=== PATIENT | male | born 1980 | race Two or more races ===

== ENCOUNTER 2016-12-02 16:06 | Inpatient (IN) | payer MEDICAID, SELFPAY ==
[~2016-12-02] VITALS: Ht 175.3 cm; Wt 104.2 kg
[2016-12-02] MEDS ORDERED: ETOMIDATE INJ 20MG/10ML VIAL IV STA (16:24)
[2016-12-02] MEDS ORDERED: NALOXONE INJ 2 MG/2 ML SYRINGE (J2310) IV STA (16:24)
[2016-12-02] MEDS ORDERED: SUCCINYLCHOLINE INJ 200 MG/10 ML VIAL (J0330) IV STA (16:24)
[2016-12-02] MEDS ORDERED: PROPOFOL 1,000 MG/100 ML VIAL As Ordered ONE (16:29)
[2016-12-02] MEDS ORDERED: PROPOFOL 200 MG/20 ML VIAL IV ONE ×3 (16:30→17:15)
[2016-12-02] MEDS ORDERED: PROPOFOL 1,000 MG in APPROPRIATE DILUENT 1 EA IV SCH (16:30)
[2016-12-02 16:38] LABS: MEAN CORPUSCULAR HEMOGLOBIN 29.4 pg (27.0-33.0); MEAN CORPUSCULAR HGB CONC 31.1 g/dl (32.0-36.5); MEAN CORPUSCULAR VOLUME 94.8 fl (80.0-96.0); PLATELET COUNT, AUTOMATED 362 10^3/uL (150-450); RED CELL DISTRIBUTION WIDTH 12.4 % (11.5-14.5)
--- NOTE | 2016-12-02 16:42 | REP ---
Chest one-view HISTORY: Post intubation Comparison: None The lungs are clear. The heart is normal in size. The pulmonary vasculature is normal in appearance. An ET tube is present in the trachea. Impression: No acute disease. Signed by Sky Ghosh MD 12/02/2016 04:33 P
[2016-12-02 16:44] LABS: WHITE BLOOD COUNT 18.4 10^3/uL (4.0-10.0)
[2016-12-02 16:45] LABS: ADD MANUAL DIFFER YES; BLASTS MDIFF; DIFF SLIDE NUMBER 295
[2016-12-02 17:00] LABS: ALBUMIN 4.5 GM/DL (3.2-5.2); ALBUMIN/GLOBULIN RATIO 1.18 (1.00-1.93); ALKALINE PHOSPHATASE 62 U/L (45-117); ALT/SGPT 37 U/L (12-78); ANION GAP 21 MEQ/L (8-16); AST/SGOT 23 U/L (15-37); BILIRUBIN,DIRECT 0.1 MG/DL (0.0-0.2); BILIRUBIN,TOTAL 0.4 MG/DL (0.2-1.0); BLOOD UREA NITROGEN 12 MG/DL (7-18); CALCIUM LEVEL 9.7 MG/DL (8.5-10.1); CARBON DIOXIDE LEVEL 15 MEQ/L (21-32); CHLORIDE LEVEL 99 MEQ/L (98-107); CREATININE FOR GFR 1.46 MG/DL (0.70-1.30); GLOMERULAR FILTRATION RATE 58.5 (>60); GLUCOSE, FASTING 249 MG/DL (70-105); SODIUM LEVEL 135 MEQ/L (136-145); TOTAL PROTEIN 8.3 GM/DL (6.4-8.2)
--- NOTE | 2016-12-02 17:07 | REP ---
CT Head without contrast HISTORY: Altered mental status COMPARISON: None There is no intraparenchymal hemorrhage, acute infarct, mass or midline shift. The ventricular system is normal in appearance. There is no extra cerebral collection. There is no fracture. The visualized sinuses are clear. IMPRESSION: There is no intracranial lesion. Signed by Sky Ghosh MD 12/02/2016 04:59 P
[2016-12-02 17:11] LABS: ABG BASE EXCESS -9.5 (-2.0-2.0); ABG HCO3 16.4 MEQ/L (22.0-26.0); ABG PARTIAL PRESSURE CO2 36.6 mmHg (35.0-45.0); ABG PARTIAL PRESSURE O2 135.4 mmHg (75.0-100.0); ABG STANDARD HCO3 17.1 MEQ/L (22.0-26.0); ABG TOTAL CO2 17.6 MEQ/L (22.0-29.0)
--- NOTE | 2016-12-02 17:18 | ECGEPIP ---
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 RBBB ARM LEADS REVERSED ABNORMAL RHYTHM ECG Electronically Signed On 12-02-2016 17:10:20 EDT by Clark Sims
[2016-12-02 17:19] LABS: OSMOLALITY SERUM 310 MOSM/KG (275-295)
[2016-12-02] MEDS ORDERED: NS 1,000 ML IV SCH ×2 (17:36→19:00)
[2016-12-02 17:37] LABS: METHADONE URINE NEGATIVE (NEGATIVE)
[2016-12-02] MEDS ORDERED: PHENYTOIN INJection 1,000 MG in NS 100 ML IV ONE (17:45)
[2016-12-02 19:00] LABS: INR 1.12
[2016-12-02] MEDS ORDERED: MIDAZOLAM INJ 2 MG/2 ML VIAL (J2250) IV PRN (19:00)
[2016-12-02] MEDS ORDERED: LACTULOSE 20 GM/30 ML SYRUP UD NG ONE (19:00)
[2016-12-02] MEDS ORDERED: MORPHINE 2 MG/ML 1ML SYRINGE IV PRN (19:00)
[2016-12-02] MEDS ORDERED: FOMEPIZOLE IV ONE (19:00)
[2016-12-02] MEDS ORDERED: NS IV ONE (19:00)
[2016-12-02] MEDS ORDERED: NS 1,000 ML IV ONE (19:00)
[2016-12-02 19:48] VITALS: BP 143/78
[2016-12-02 19:53] VITALS: BP 148/82
--- NOTE | 2016-12-02 20:06 | HPE ---
HISTORY AND PHYSICAL/CRITICAL CARE ADMIT NOTE: DATE OF ADMISSION: 12/02/2016 Start time: 1810 hours Stop time: 9 hours I called to attend Sergei Hernández here in the emergency department. The patient has been examined and records review. Spoke tonight with the ER as well as the patient's mother, sister and significant other at the bedside. In essence this is a previously healthy 36-year-old gentleman whose only significant history is about a year ago he suffered a pelvic fracture. He has been in his usual state of health. He takes no medicines. Was at work today feeling fine then had a seizure. EMS was summoned. He had another seizure en route to the hospital. On arrival here, was unable to protect his airway and was intubated. CT scan of the head is unremarkable. Chest x-ray shows no infiltrates. ET tube is in good position. Laboratories show a sodium of 135, potassium 4.0, chloride 99, CO2 of 15, BUN 12 , creatinine 1.46, anion gap of 21. Glucose 249. Osmolality measured at 310, calculated osmolar gap of 21.9. Lactic acid 16.3. Liver function is unremarkable but his ammonia is 292. Coags are pending. White blood cell count 18.4, hemoglobin 16.4, platelet count 362,000, 47% segmented neutrophils, 48% lymphocystes, no bands. Blood gas done in the ER on ventilator settings, unknown. PH 7.270. PCO2 of 36.6 and a pO2 of 135.4 with saturation 98.5%. On exam, heart rate 90 to 110 with a sinus mechanism. With increased sedation down into the 80s with a sinus mechanism. Blood pressure 100 to 120 systolic. Respiratory at 18 to 22 without accessory muscle use. He is currently afebrile. HEENT: Shows the oroendotracheal tube, nasogastric tube. Pupils are small. Sclera clear. Trachea is in the midline. Chest with symmetric expansion. Lung mitchell are clear. No wheeze or rhonchus. Cardiac exam is regular with no gallop. Peripheral pulses palpable, no edema. Abdomen is soft, with active bowel sounds. No obvious organomegaly or masses. Extremities: No cyanosis or clubbing. Neurologically is sedated but does move extremities with stimulation. ALLERGIES: Listed as none. MEDICATIONS: None. PAST MEDICAL HISTORY: Significant only for his pelvic fracture. Remote history of head injury without loss of consciousness. His previous record has counseling for substance abuse. SOCIAL HISTORY: He does smoke. No regular alcohol. FAMILY HISTORY: Noncontributory to his current status. REVIEW OF SYSTEMS: Otherwise unobtainable from the patient. Family reports all other review of systems negative. IMPRESSION: The most pressing problem requiring my immediate presence at the bedside, metabolic acidosis with increased osmolar and anion gap. Strongly suspect ethylene glycol intoxication. Respiratory failure secondary to the above. Seizures. Likely secondary to toxin. At this point the working diagnosis is ethylene glycol intoxication, especially in view of the constellation of lab findings noted above. The patient does work in an [employer]. He has significant exposure to such agents. His girlfriend tells me that he has been dealing with an antifreeze leak in his car as of late. We will begin fomepizole. I have spoken with nephrology who will evaluate him regarding potential dialysis. He was given lactulose for his elevated ammonia as well. IV hydration has been started. We will repeat his lactate and chemistries here shortly, unless he on dialysis, then they will repeat it after. Also DVT prophylaxis are in place. Ventilator adjustments have been made by myself and repeat blood gases pending. He is on propofol for sedation, which is usual regarding seizures. He has had no further seizure activity. He was loaded with dilantin by the ER. If the seizures continues then I would involve neurology. I had a long discussion with the family at the bedside regarding my suspicions. I will proceed as outlined above. Prognosis remains quite guarded at this point. He is critically ill and we will facilitate transfer to the intensive care unit. I left the bedside at 1928 hours. 78 minutes critical care time delivered at the bedside, not including procedures. EULALIO
[2016-12-02] MEDS: PROPOFOL 1,000 MG in APPROPRIATE DILUENT 1 EA IV SCH ×2 (20:24→22:15)
[2016-12-02 20:25] LABS: YEAST LIKE CELL URINE AUTO SMALL
[2016-12-02 21:00] VITALS: BP 127/67
[2016-12-02] MEDS ORDERED: CHLORHEXIDINE ORAL RINSE 0.12%/15ML 120ML BOTTLE MT SCH (21:00)
[2016-12-02 21:43] LABS: ANION GAP 8 MEQ/L (8-16); BLOOD UREA NITROGEN 13 MG/DL (7-18); CALCIUM LEVEL 8.7 MG/DL (8.5-10.1); CARBON DIOXIDE LEVEL 25 MEQ/L (21-32); CHLORIDE LEVEL 104 MEQ/L (98-107); CREATININE FOR GFR 1.21 MG/DL (0.70-1.30); GLOMERULAR FILTRATION RATE > 60.0 (>60); GLUCOSE, FASTING 89 MG/DL (70-105); POTASSIUM SERUM 3.6 MEQ/L (3.5-5.1); SODIUM LEVEL 137 MEQ/L (136-145)
[2016-12-02] MEDS: IPRATROPIUM 0.5MG/ALBUTEROL 2.5MG INH SOL UD 3ML (DUONEB)(J7620) NEB SCH ×2 (21:43→23:55)
[2016-12-02 21:54] LABS: ABG BASE EXCESS -1.8 (-2.0-2.0); ABG HCO3 23.2 MEQ/L (22.0-26.0); ABG PARTIAL PRESSURE CO2 40.4 mmHg (35.0-45.0); ABG PARTIAL PRESSURE O2 152.6 mmHg (75.0-100.0); ABG TOTAL CO2 24.4 MEQ/L (22.0-29.0); ABG pH (ARTERIAL) 7.377 UNITS (7.350-7.450)
[2016-12-02 22:00] VITALS: BP 124/74
[2016-12-02] MEDS: KCL 20MEQ in NS 1000ML 1,000 ML IV SCH (22:10)
[2016-12-02] MEDS: HEPARIN SOD (PORCINE) 5000 UNITS/ML VIAL SC SCH (22:11)
[2016-12-02 23:00] VITALS: BP 107/68
[2016-12-03] VITALS (18 sets, daily range): BP systolic 101–146; BP diastolic 59–86; O2SAT 98–100
[2016-12-03] MEDS: PROPOFOL 1,000 MG in APPROPRIATE DILUENT 1 EA IV SCH ×6 (00:01→09:01)
[2016-12-03] MEDS: IPRATROPIUM 0.5MG/ALBUTEROL 2.5MG INH SOL UD 3ML (DUONEB)(J7620) NEB SCH ×6 (03:28→23:54)
[2016-12-03] MEDS: KCL 20MEQ in NS 1000ML 1,000 ML IV SCH ×2 (04:18→11:14)
[2016-12-03 04:53] LABS: BASO % 0.2 % (0.0-1.0); EOS % 0.2 % (0.0-3.0); IMMATURE GRANULOCYTE % 0.2 % (0-0); LYMPH # 1.8 10^3/uL (1.5-4.5); LYMPH % 14.4 % (24.0-44.0); MEAN CORPUSCULAR HEMOGLOBIN 29.9 pg (27.0-33.0); MEAN CORPUSCULAR HGB CONC 34.2 g/dl (32.0-36.5); MONO # 1.5 10^3/uL (0.0-0.8); MONO % 12.2 % (0.0-5.0); NEUTROPHILS # 8.9 10^3/uL (1.8-7.7); NEUTROPHILS % 72.8 % (36.0-66.0); RED CELL DISTRIBUTION WIDTH 13.2 % (11.5-14.5); WHITE BLOOD COUNT 12.2 10^3/uL (4.0-10.0)
[2016-12-03 05:14] LABS: MEAN CORPUSCULAR VOLUME 87.5 fl (80.0-96.0); PLATELET COUNT, AUTOMATED 254 10^3/uL (150-450)
[2016-12-03 05:28] LABS: ALBUMIN 3.6 GM/DL (3.2-5.2); ALBUMIN/GLOBULIN RATIO 1.29 (1.00-1.93); BILIRUBIN,TOTAL 0.5 MG/DL (0.2-1.0); CALCIUM LEVEL 8.3 MG/DL (8.5-10.1); CREATININE FOR GFR 1.62 MG/DL (0.70-1.30); GLOMERULAR FILTRATION RATE 51.9 (>60); PHOSPHORUS LEVEL 5.9 MG/DL (2.5-4.9); POTASSIUM SERUM 4.3 MEQ/L (3.5-5.1); TOTAL PROTEIN 6.4 GM/DL (6.4-8.2)
[2016-12-03 05:37] LABS: ABG HCO3 22.4 MEQ/L (22.0-26.0); ABG PARTIAL PRESSURE CO2 41.4 mmHg (35.0-45.0); ABG TOTAL CO2 23.7 MEQ/L (22.0-29.0); ABG pH (ARTERIAL) 7.351 UNITS (7.350-7.450)
[2016-12-03] MEDS: HEPARIN SOD (PORCINE) 5000 UNITS/ML VIAL SC SCH ×3 (06:37→23:15)
[2016-12-03] MEDS: NS IV SCH ×2 (06:40→18:48)
[2016-12-03] MEDS: FOMEPIZOLE IV SCH ×2 (06:40→18:48)
--- NOTE | 2016-12-03 07:40 | REP ---
Portable chest, 06:45 a.m., single AP view, the patient semi upright: Comparison is 12/02/2016. The endotracheal tube remains in satisfactory position at the level of the aortic arch. There has been interval placement of a nasogastric tube terminating satisfactorily in the upper abdomen on the left. Lung mitchell are clear. Cardiac size is normal. Half half half half half Signed by Mahesh Solano MD 12/03/2016 07:30 A
[2016-12-03] MEDS: PANTOPRAZOLE 40MG INJ (PROTONIX) (C9113) IV SCH (08:15)
[2016-12-03 08:35] LABS: ALBUMIN 3.7 GM/DL (3.2-5.2); CALCIUM LEVEL 8.3 MG/DL (8.5-10.1); CREATININE FOR GFR 1.69 MG/DL (0.70-1.30); GLOMERULAR FILTRATION RATE 49.4 (>60); PHOSPHORUS LEVEL 5.8 MG/DL (2.5-4.9); POTASSIUM SERUM 4.4 MEQ/L (3.5-5.1)
--- NOTE | 2016-12-03 11:57 | CCN ---
DATE: 12/02/2016 Start time: 0820 hours. Stop time: 0942 hours. I again attended Sergei Hernández here in the intensive care unit. He is intubated, sedated and mechanically ventilated. I have spoken at length with the family at the bedside. 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 The deputy is at the bedside. I have written permission from the mother to discuss issues with him. At this point, we have spoken only in generalities. T-max overnight 98.9, heart rate 60s to 80s with a sinus mechanism, blood pressure 100 to 140 systolic. Intake and output 2051 mL in with 1725 mL out. White blood cell count 12.2, hemoglobin 15.0, platelet count 254,000, 72.8% segs , no bands. Sodium 144, potassium (K) of 4.4, chloride of 111, CO2 24, BUN 15, creatinine 1.69, glucose 107. Osmolality measured down to 301. His osmolytic gap this morning is within normal limits at less than 2. CPK earlier this morning 1168. Ammonia down to 27. Liver functions remain acceptable, highest AST at 38. Blood gas this morning done on PRVC mode, rate of 12, tidal volume of 500, PEEP of 5, FiO2 of 30% has a pH of 7.351, pCO2 of 41.1 and a pO2 of 174. Ethylene glycol is still pending. Chest x-ray shows OG and endotracheal tube to be in good position. No infiltrates or pneumothorax. On exam, he is sedate but moves all extremities appropriately. Pupils remain small, sclera clear. Trachea is in the midline. Chest shows symmetric expansion. Lung mitchell are clear to percussion, remain symmetric and no significant focal adventitious breath sounds are identified. Tactile fremitus is palpable throughout. Cardiac exam is regular with no murmur or gallop. Peripheral pulses palpable, no edema. Abdomen is soft, nontender, with active bowel sounds. No hepatosplenomegaly or masses. Extremities no cyanosis or clubbing. Neurologically, initially sedate. Propofol was then discontinued. I remained at the bedside. He awoke nicely in less than 10 minutes time. Vigorous cough and gag. Follows commands. He was then extubated without difficulty. No stridor. He has no recollection of yesterdays events. The most pressing problems requiring my immediate presence at the bedside: 1. Respiratory failure requiring mechanical ventilatory support. 2. Seizures, resolved. 3. Osmolar and anion gap metabolic acidosis, suspect toxin ingestion, most likely antifreeze. 4. Renal failure. At this point, I have spoken at length now with the family and with the family and with Dr. Leon from nephrology. His creatinine remaining at 1.6 is concerning. We will continue hydration at this point. He will continue on the full course of fomepizole. Ulcer and deep vein thrombosis (DVT) prophylaxis will remain in place. We will begin enteral feeds in the form of clear liquids in the next hour or so. Given that the events surrounding his presentation remain unclear, and there is concern over toxin ingestion, I will institute suicide precautions until we are able to get further information regarding events of yesterday if we are able to at all. I have spoken at length with Dr. Kia Mathias from the hospitalist service who assumed his primary care while here in the hospital. I left the bedside at 0942 hours. 82 minutes of critical care time was delivered at the bedside, not including procedures. EULALIO
--- NOTE | 2016-12-03 13:10 | IPN ---
DATE: 12/03/2016 Mr. Hernández is seen this morning on his bedside in intensive care unit. I saw him last evening due to acute kidney injury and metabolic acidosis. He is felt to have some toxin ingestion which led to metabolic acidosis and seizures. For seizures, he was intubated and has been extubated this morning. The patient is now able to talk normal, and he is still unable to recall any of the events from yesterday. In any event, last evening, his kidney function improved and metabolic acidosis resolved after IV fluid hydration. Through the night, he did not have any further seizure activity. He has been loaded with Dilantin. PHYSICAL EXAMINATION: Temperature is 99.3 degrees Fahrenheit, heart rate 78 per minute and respiratory rate 18 per minute. Blood pressure 108/62 mmHg and oxygen saturation 99% on 2 liters oxygen. Intake and output records since admission til midnight showed total intake 282 and output 575 mL. Since midnight up till now his total intake is about 2900 and output 2225. His head is atraumatic. Neck is supple and without jugular venous distention (JVD) or thyroid enlargement. Ears, nose and throat are unremarkable. Heart sounds are regular and lungs clear to auscultation. Abdomen is soft and nontender and without palpable organomegaly. Extremities have no cyanosis or clubbing. Neurologically, he is awake and alert. He is able to answer questions appropriately. He is unable to recall any of the events from yesterday. Today's labs show a sodium level 142 and potassium 4.3. CO2 is 26 and chloride 109. BUN 15 and creatinine 1.62. Glucose 106, calcium 8.3 and phosphorus 5.9. Ammonia level has come down to 27. CPK is 1168. WBC count is down to 12.2, hemoglobin 15 and hematocrit 44. His urine toxicology for ethylene glycol is still pending. PROBLEMS: 1. Acute kidney injury. The patient did have initially improvement after IV fluid hydration and creatinine came down to 1.2 last evening. This morning his creatinine is up to 1.62. He did have good urine output since admission. He does not have any metabolic acidosis or electrolyte abnormalities. At this point we will continue to monitor his kidney function closely. There is no emergent need for dialysis. 2. Metabolic acidosis. His acidosis has improved and he did not require dialysis or bicarbonate drip. We will continue to monitor for further. 3. Rhabdomyolysis. He does have mild rhabdomyolysis, most likely related to seizures. His CPK is only mildly elevated. The patient is currently being hydrated with IV fluid, which will be continued. 4. Possible ethylene glycol toxicity. The patient denies any ingestion of any substance. He did have elevated anion gap acidosis and elevated wall smaller gap. At this point, he is being treated with fomepizole, and we will continue to monitor. There is no emergent indication for dialysis.
[2016-12-03] MEDS: NS 1,000 ML IV SCH ×2 (16:10→23:16)
--- NOTE | 2016-12-03 16:58 | MHIPNPDOC ---
[facility] Progress Note Progress Note DATE OF SERVICE: 12/03/16 HISTORY: Called to see 36 year old male who was found to have ethylene glycol intoxication, had a seizure while he was at work and another seizure en route to the Hospital. He had to be intubated. 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 He states he's confused about the whole situation because he woke up being at the Hospital and he doesn't understand why. He has been told it was because of anti freeze intoxication but he denies over and over again that he is NOT SUICIDAL. He says HE WANTS TO LIVE, he has two daughters and a baby that is coming, his GF is expecting. He states he is very annoyed, he hates hospitals, hates Doctor' s offices, hates medicines. Denies previous psychiatric history, denies previous suicide attempts, denies family psych history. VITAL SIGNS: See below. NEW TEST RESULTS: See below. CURRENT MEDICATIONS: See below. MENTAL STATUS EXAMINATION: Patient is a 36-year old male, who is alert, cooperative, laying in bed, in hospital clothes with poor eye contact. Speech: Is Coherent. Language skills are fair. Thought processes including: Intact. Thought content: Coherent, goal directed. Abstract reasoning, and computation: Not assessed at this time. Description of associations: good Description of abnormal or psychotic thoughts: Denies HI/SI, denies A/V hallucinations, denies thought delusions. Judgment: Fair. Insight: Limited. Orientation: oriented x 3. Recent and remote memory: Limited. Recent memory is limited, . Attention span and concentration: Good Language: Normal Fund of knowledge: Not assessed at this time Mood: Slightly irritable. Affect: Congruent with affect DIAGNOSES: The patient doesn't show signs of depression, he is not suicidal, he is not psychotic but he is anxious because he doesn't know what happened to him and he dislikes hospitals. ASSESSMENT: Patient is annoyed and irritable for being at the hospital, he is confused because he doesn't know what happened to him, he states over and over again that he is not suicidal because he has plans for the future, he has 2 beautiful daughters, as he said it and another baby that is coming. He has a girlfriend that he loves and there is no reason for him having suicidal ideation. He says he is anxious because he dislikes hospital settings and he was seeing irritable, edgy. I recommend lorazepam 0.5 mg by mouth every 6 hours when necessary for anxiety MANAGEMENT PLAN: Will visit him tomorrow to reassess once he is less confused and less tired. It was above guessed [place] for him to talk to me today and he had trouble talking about childhood issues and family history because it was hard for him to concentrate. Consider lorazepam 0.5 mg by mouth every 6 hours when necessary for anxiety. TIME SPENT: 40 minutes. Vital Signs Vital Signs Date Time Temp Pulse Resp B/P (MAP) Pulse Ox O2 Delivery O2 Flow Rate FiO2 12/03/16 13:00 93 127/75 (92) 99 Nasal Cannula 2.0 12/03/16 12:00 99.1 86 12/03/16 11:00 35 Laboratory Data 24H Labs Laboratory Tests 2 12/02/16 16:59: Urine Appearance HAZY, Urine Color YELLOW, Urine pH 5.0, Urine Specific [place] 1.012, Urine Protein 2+H, Urine Glucose (UA) NEGATIVE, Urine Ketones NEGATIVE, Urine Urobilinogen 0.2, Urine Bilirubin NEGATIVE, Urine Leukocyte Esterase NEGATIVE, Urine Blood 2+H, Urine Nitrite NEGATIVE, Urine WBC (Auto) 2, Urine RBC (Auto) 1, Urine Hyaline Casts (Auto) 7, Urine Bacteria (Auto) NEGATIVE, Urine Squamous Epithelial Cells 0, Urine Mucus (Auto) SMALL, Urine Yeast-Like Cells (Auto) SMALLH, Urine Sperm (Auto) , Urine Amphetamines Screen NEGATIVE, Urine Benzodiazepines Screen POSITIVEH, Urine Opiates Screen NEGATIVE, Urine Methadone Screen NEGATIVE, Urine Barbiturates Screen NEGATIVE, Urine Phencyclidine Screen NEGATIVE, Urine Cocaine Metabolite Screen NEGATIVE, Urine Cannabinoids Screen POSITIVEH 12/02/16 17:04: Blood Gas Bicarbonate Standard 17.1L, Arterial Blood pH 7.270L, Arterial Blood Partial Pressure CO2 36.6, Arterial Blood Partial Pressure O2 135.4H, Arterial Blood Total CO2 17.6L, Arterial Blood HCO3 16.4L, Arterial Blood Base Excess - 9.5L, Arterial Blood Oxygen Saturation 98.5 12/02/16 20:39: 12/02/16 20:59: Anion Gap 8, Glomerular Filtration Rate > 60.0, Lactic Acid Followup at 4 Hours 1.9, Blood Urea Nitrogen 13, Creatinine 1.21, Sodium Level 137, Potassium Level 3.6, Chloride Level 104, Carbon Dioxide Level 25, Calcium Level 8.7 12/02/16 21:42: Blood Gas Bicarbonate Standard 23.0, Arterial Blood pH 7.377, Arterial Blood Partial Pressure CO2 40.4, Arterial Blood Partial Pressure O2 152.6H, Arterial Blood Total CO2 24.4, Arterial Blood HCO3 23.2, Arterial Blood Base Excess -1.8 , Arterial Blood Oxygen Saturation 99.0 12/03/16 04:37: Immature Granulocyte % (Auto) 0.2H, White Blood Count 12.2H, Red Blood Count 5.02, Hemoglobin 15.0, Hematocrit 43.9, Mean Corpuscular Volume 87.5#, Mean Corpuscular Hemoglobin 29.9, Mean Corpuscular Hemoglobin Concent 34.2, Red Cell Distribution Width 13.2, Platelet Count 254#, Neutrophils (%) (Auto) 72.8H, Lymphocytes (%) (Auto) 14.4L, Monocytes (%) (Auto) 12.2H, Eosinophils (%) (Auto ) 0.2, Basophils (%) (Auto) 0.2, Neutrophils # (Auto) 8.9H, Lymphocytes # (Auto ) 1.8, Monocytes # (Auto) 1.5H, Eosinophils # (Auto) 0.0, Basophils # (Auto) 0.0 , Immature Granulocyte # (Auto) 0.0, Nucleated Red Blood Cells % (auto) 0.0, Anion Gap 7L, Glomerular Filtration Rate 51.9L, Blood Urea Nitrogen 15, Creatinine 1.62H, Sodium Level 142, Potassium Level 4.3, Chloride Level 109H, Carbon Dioxide Level 26, Calcium Level 8.3L, Phosphorus Level 5.9H, Aspartate Amino Transf (AST/SGOT) 38H, Alanine Aminotransferase (ALT/SGPT) 33, Lactate Dehydrogenase 309H, Total Creatine Kinase 1168#H, Alkaline Phosphatase 47, Total Bilirubin 0.5, Triglycerides Level 279H, Cholesterol Level 174, Total Protein 6.4#, Albumin 3.6, Ammonia 27, Albumin/Globulin Ratio 1.29 12/03/16 05:22: Blood Gas Bicarbonate Standard 22.0, Arterial Blood pH 7.351, Arterial Blood Partial Pressure CO2 41.4, Arterial Blood Partial Pressure O2 174.0H, Arterial Blood Total CO2 23.7, Arterial Blood HCO3 22.4, Arterial Blood Base Excess -3.0L , Arterial Blood Oxygen Saturation 99.4H 12/03/16 07:49: Anion Gap 9, Glomerular Filtration Rate 49.4L, Blood Urea Nitrogen 15, Creatinine 1.69H, Sodium Level 144, Potassium Level 4.4, Chloride Level 111H, Carbon Dioxide Level 24, Calcium Level 8.3L, Phosphorus Level 5.8H, Albumin 3.7 , Osmolality 301H CBC/BMP Laboratory Tests 12/02/16 20:59 Calcium Level 8.7 12/03/16 04:37 Calcium Level 8.3 L, Red Blood Count 5.02, Mean Corpuscular Volume 87.5 #, Mean Corpuscular Hemoglobin 29.9, Mean Corpuscular Hemoglobin Concent 34.2, Red Cell Distribution Width 13.2, Neutrophils (%) (Auto) 72.8 H, Lymphocytes (%) (Auto) 14.4 L, Monocytes (%) (Auto) 12.2 H, Eosinophils (%) (Auto) 0.2, Basophils (%) ( Auto) 0.2, Neutrophils # (Auto) 8.9 H, Lymphocytes # (Auto) 1.8, Monocytes # ( Auto) 1.5 H, Eosinophils # (Auto) 0.0, Basophils # (Auto) 0.0, Phosphorus Level 5.9 H, Aspartate Amino Transf (AST/SGOT) 38 H, Alanine Aminotransferase (ALT/ SGPT) 33, Lactate Dehydrogenase 309 H, Total Creatine Kinase 1168 #H, Alkaline Phosphatase 47, Total Bilirubin 0.5, Triglycerides Level 279 H, Cholesterol Level 174, Total Protein 6.4 #, Albumin 3.6 12/03/16 07:49 Anion Gap 9 Current Medications Current Medications Albuterol/ Ipratropium (Duoneb (Ipr 0.5mg/Alb 2.5mg)) 3 ml RQ4H NEB Last administered on 12/03/16t 15:54; Start 12/02/16 at 20:00; Stop 01/01/17 at 19 :59 Chlorhexidine Gluconate (Chlorhexidine Gluconate) 5 ml BID MT ; Start 12/02/16 at 21:00; Stop 12/03/16 at 10:54; Status DC Etomidate (Amidate) 30 mg STAT STAT IV Last administered on 12/02/16 16:16; Start 12/02/16 at 16:24; Stop 12/02/16 at 16:26; Status DC Fomepizole 1000 mg/Sodium Chloride 101 ml @ 202 mls/hr Q12H IV Last administered on 12/03/16 06:40; Start 12/03/16 at 07:00; Stop 01/02/17 at 06 :59 Heparin Sodium (Porcine) (Heparin) 5,000 units Q8H SC Last administered on 15:32; Start 12/02/16 at 22:00; Stop 12/07/16 at 21:59 Home Med (Med Rec Complete!) ASDIRECTED XX ; Start 12/02/16 at 17:30; Stop at 17:32; Status DC Midazolam HCl (Versed) 2 mg Q15MP PRN IV AGITATION Last administered on 20:14; Start 12/02/16 at 19:00; Stop 12/03/16 at 09:43; Status DC Morphine Sulfate (Morphine Sulfate Inj) 2 mg Q2HP PRN IV PAIN; Start 12/02/16 at 19:00; Stop 12/09/16 at 18:59; Status Cancel Naloxone HCl (Narcan) 2 mg STAT STAT IV Last administered on 12/02/16 16:13 ; Start 12/02/16 at 16:24; Stop 12/02/16 at 16:26; Status DC Pantoprazole Sodium (Protonix) 40 mg DAILY IV Last administered on 12/03/16 08:15; Start 12/03/16 at 09:00; Stop 01/02/17 at 08:59 Potassium Chloride/Sodium Chloride 1,000 ml @ 150 mls/hr Q6H40M IV Last administered on 12/03/16 11:14; Start 12/02/16 at 22:00; Stop 12/03/16 at 15 :59; Status DC Propofol 1000 mg/ IV Miscellaneous Supplies 100 ml @ 6.25 mls/hr Q16H IV Last administered on 12/03/16 09:01; Start 12/02/16 at 20:00; Stop 12/03/16 at 09 :43; Status DC Propofol 1000 mg/ IV Miscellaneous Supplies 100 ml @ 15.63 mls/ hr Q6H24M IV Last administered on 12/02/16 17:00; Start 12/02/16 at 16:30; Stop 12/02/16 at 20:04; Status DC Sodium Chloride 1,000 ml @ 150 mls/hr Q6H40M IV Last administered on 18:25; Start 12/02/16 at 17:36; Stop 12/02/16 at 20:05; Status DC Sodium Chloride 1,000 ml @ 150 mls/hr Q6H40M IV Last administered on 16:10; Start 12/03/16 at 16:00; Stop 01/02/17 at 15:59 Sodium Chloride 1,000 ml @ 200 mls/hr Q5H IV Last administered on 12/02/16 20:25; Start 12/02/16 at 19:00; Stop 12/02/16 at 21:50; Status DC Succinylcholine Chloride (Quelicin) 100 mg STAT STAT IV Last administered on 12/02/16 16:17; Start 12/02/16 at 16:24; Stop 12/02/16 at 16:26; Status DC Allergies Coded Allergies: No Known Allergies (Verified , 08/28/02) KRISTEN SANTANA MD Dec 03, 2016 16:58
[2016-12-03] MEDS ORDERED: LORazepam 0.5 MG TAB PO PRN (17:15)
[2016-12-04] VITALS: BP 132/76
[2016-12-04] MEDS: IPRATROPIUM 0.5MG/ALBUTEROL 2.5MG INH SOL UD 3ML (DUONEB)(J7620) NEB SCH ×5 (03:04→19:19)
[2016-12-04 04:00] VITALS: BP 128/78
[2016-12-04 04:59] LABS: BASO % 0.4 % (0.0-1.0); EOS # 0.1 10^3/uL (0.0-0.50); EOS % 0.6 % (0.0-3.0); IMMATURE GRANULOCYTE % 0.3 % (0-0); LYMPH # 2.2 10^3/uL (1.5-4.5); LYMPH % 20.6 % (24.0-44.0); MEAN CORPUSCULAR HEMOGLOBIN 29.5 pg (27.0-33.0); MEAN CORPUSCULAR HGB CONC 32.9 g/dl (32.0-36.5); MEAN CORPUSCULAR VOLUME 89.8 fl (80.0-96.0); MONO # 1.2 10^3/uL (0.0-0.8); MONO % 11.6 % (0.0-5.0); NEUTROPHILS % 66.5 % (36.0-66.0); PLATELET COUNT, AUTOMATED 206 10^3/uL (150-450); RED CELL DISTRIBUTION WIDTH 13.2 % (11.5-14.5); WHITE BLOOD COUNT 10.5 10^3/uL (4.0-10.0)
[2016-12-04 05:38] LABS: ALBUMIN 3.1 GM/DL (3.2-5.2); ALBUMIN/GLOBULIN RATIO 1.07 (1.00-1.93); ALKALINE PHOSPHATASE 59 U/L (45-117); ALT/SGPT 28 U/L (12-78); ANION GAP 9 MEQ/L (8-16); AST/SGOT 38 U/L (15-37); BILIRUBIN,TOTAL 0.4 MG/DL (0.2-1.0); BLOOD UREA NITROGEN 12 MG/DL (7-18); CARBON DIOXIDE LEVEL 23 MEQ/L (21-32); CHLORIDE LEVEL 114 MEQ/L (98-107); CHOLESTEROL LEVEL 161 MG/DL (< 200); CREATININE FOR GFR 1.17 MG/DL (0.70-1.30); GLOMERULAR FILTRATION RATE > 60.0 (>60); GLUCOSE, FASTING 103 MG/DL (70-105); PHOSPHORUS LEVEL 4.1 MG/DL (2.5-4.9); POTASSIUM SERUM 3.9 MEQ/L (3.5-5.1); SODIUM LEVEL 146 MEQ/L (136-145); TRIGLYCERIDES LEVEL 88 MG/DL (<150)
[2016-12-04] MEDS: FOMEPIZOLE IV SCH ×2 (06:39→18:28)
[2016-12-04] MEDS: NS IV SCH ×2 (06:39→18:28)
[2016-12-04] MEDS: HEPARIN SOD (PORCINE) 5000 UNITS/ML VIAL SC SCH ×3 (06:40→21:01)
[2016-12-04 07:42] VITALS: BP 132/74
[2016-12-04 08:21] LABS: UR ETG SCRN1 Negative ng/mL (Cutoff=500)
[2016-12-04] MEDS: PANTOPRAZOLE 40MG INJ (PROTONIX) (C9113) IV SCH (09:16)
[2016-12-04] MEDS: ACETAMINOPHEN TAB 650MG DOSE (2X325MG) PO PRN ×2 (09:17→21:03)
[2016-12-04] MEDS: NS 1,000 ML IV SCH (09:17)
--- NOTE | 2016-12-04 09:24 | REP ---
Chest two views HISTORY: Respiratory failure Comparison: 12/03/2016 The lungs are clear. The heart is normal in size. The pulmonary vasculature is normal in appearance. The bony structure is intact. IMPRESSION: No acute disease. Signed by Sky Ghosh MD 12/04/2016 09:16 A
--- NOTE | 2016-12-04 14:00 | IPN ---
DATE OF VISIT: 12/04/2016 Mr. Hernández is seen on his bedside in intensive care unit. He was admitted with seizures and noticed to have acute kidney injury and metabolic acidosis. There was a suspicion for toxic ingestion and he was treated with fomepizole for suspected ethylene glycol toxicity. He did improve with IV fluid hydration, fomepizole has been successfully extubated. He was intubated on admission for airway protection. At the time of my visit today, he is sitting in the chair and is fully awake, alert and oriented times three. He denies any nausea, vomiting, headache, dyspnea or chest pain. PHYSICAL EXAMINATION: Temperature 98.4 degrees Fahrenheit, heart rate 90 per minute and respiratory rate 16 per minute. Blood pressure 132/74 mmHg and oxygen saturation 96% on room air. Intake and output records from yesterday showed total intake 5661 and output 3675 mL. He is receiving IV normal saline at 150 per hour. His head is atraumatic. Neck is supple and without jugular venous distention (JVD) or thyroid enlargement. Ears, nose, throat and eyes are unremarkable. Heart exam reveals regular S1 and S2. Neck is supple and without JVD or thyroid enlargement. Lungs clear to auscultation bilaterally. Abdomen is soft, nontender and without palpable organomegaly. Extremities have no cyanosis or clubbing. Neurologically he is awake, alert and oriented times three. He does not have any focal neurological deficit. Today's labs show WBC count 10.5, hemoglobin 12.7 and hematocrit 38.6. Platelets 206. Sodium 146 and potassium 3.9. BUN 12 and creatinine 1.17. Calcium level is 8.0 and phosphorus 4.1. CPK is 1513. PROBLEMS: 1. Acute kidney injury. 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 The patient denies any ingestion of ethylene glycol. Urine toxicology for ethylene glycol is still pending. At this point his kidney function has already improved. His IV fluid is being stopped as his oral intake is adequate. 2. Hypernatremia. This is mild and most likely related to IV normal saline. His IV fluid is being stopped. The patient is being encouraged to eat and drink normally. Electrolytes will be checked again tomorrow morning. 3. Hyperphosphatemia probably related to rhabdomyolysis and has already corrected. No intervention is indicated. 4. Rhabdomyolysis. The patient has mild rhabdomyolysis most likely related to seizures. His CPK level is only 1513. I do not feel that he is at risk for acute kidney injury due to rhabdomyolysis. He is very well-hydrated and we will recheck his CPK level tomorrow morning. DISPOSITION: From a renal standpoint, the patient can be transferred out of intensive care unit to regular medical surgical floor.
--- NOTE | 2016-12-04 14:32 | CR ---
DATE OF CONSULTATION: 12/04/[address] ADAM DATE OF CONSULTATION: 12/02/2016 REASON FOR CONSULTATION: Acute kidney injury, severe metabolic acidosis and possible ethylene glycol toxicity. HISTORY OF PRESENT ILLNESS: Mr. Hernández is a 37-year-old male who was admitted to [facility] on 12/02/2016. He was brought by EMS due to seizures. He has no known medical history previously and was apparently in good health. 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 He had another episode of seizure en route. On arrival to the emergency room, he was intubated for airway protection and admitted to the intensive care unit where I saw him on the evening of December 02. There was a suspicion for possible ethylene glycol toxicity and nephrology consultation was requested for possible need for urgent dialysis. PAST MEDICAL AND SURGICAL HISTORY: His only significant past history is for a pelvic fracture. He does not have any medical problems known. MEDICATIONS: He does not take any prescription medications. ALLERGIES: The patient has no known allergies. REVIEW OF SYSTEMS: The patient is intubated at the time of my visit. I had a chance to discuss with his mother and his significant other. He has no known history of seizures previously. There is no history of fever or chills. He was at work where he took a lunch break and after lunch break when he came back he developed seizures. He did not have any other complaints at that time. At present, he is intubated and sedated and not able to provide any further information. FAMILY HISTORY: His family history is unremarkable for seizures or renal problems. PHYSICAL EXAMINATION: This is a young, healthy-looking male who is intubated. His temperature is 98.9 degrees Fahrenheit. Heart rate is about 74 per minute and respiratory rate 20 per minute. Blood pressure 143/78 mmHg and oxygen saturation 100% on the ventilator. His head is atraumatic. Pupils are small and funduscopy is not possible. Sclera is anicteric. Neck is supple and without jugular venous distention (JVD) or thyroid enlargement. Heart sounds are regular and lungs have good bilateral air entry. Abdomen is soft and nontender and without palpable organomegaly. Extremities have no cyanosis or clubbing. He does not have any peripheral edema. Skin is without any rash or ulcers. Neurologically, a complete exam is not possible as the patient is sedated. LABORATORY DATA: His blood gas on admission showed a pH of 7.27, pCO2 36.6, pO2 135.4 and bicarb 17. His initial chemistry showed sodium level of 135 and potassium 4.0. CO2 15, BUN 12 and creatinine 1.46. Glucose 249 and serum osmolality 310. Lactic acid level 16.3, calcium 9.7 and ammonia level 292. Urinalysis showed 2+ protein, 2+ blood, but only 1 red blood cell. Urine toxicology screen was positive for salicylates, acetaminophen less than 2.0, benzodiazepines positive and cannabinoids screen positive. Ethyl alcohol was less than 0.003. Ethylene glycol is still pending. Head CAT scan was negative for any acute intracranial pathology. Chest x-ray unremarkable. PROBLEMS: 1. Severe metabolic acidosis. Most likely related to acute seizure and possible toxicity. There is a suspicion for ethylene glycol toxicity on the basis of osmolar gap, anion gap acidosis and seizures. The patient has received fomepizole and he is making a good amount of urine. We will continue with IV fluid hydration at this point and repeat his chemistry and blood gas. Depending upon the results of repeat chemistry and blood gas, will make a decision if there is need for dialysis. Lactic acidosis is probably also contributing to his overall picture. 2. Acute kidney injury. Most likely related to nephrotoxicity and rhabdomyolysis. The patient is nonoliguric and creatinine is only mildly elevated. We will recheck the chemistry and then monitor closely. At this point, he does not seem to have any urgent indication for dialysis. 3. Elevated ammonia level, probably a result of toxicity. His other liver functions are normal. The patient is being treated with lactulose. His ammonia level will be repeated again tomorrow morning. I thank you for involving me in the care of Mr. Hernández. I will follow him along with you.
--- NOTE | 2016-12-04 15:06 | IPNPDOC ---
Date Seen The patient was seen on 12/04/16. Progress Note Hospitalist Progress Note Subjective: Patient states that physically he feels well, however, he is very disconcerted by this whole experience as he is confused about what exactly happened Objective: Physical Exam: Vitals: Vital Sign - Last 24 Hours 12/03/16 12/03/16 12/03/16 12/03/16 16:00 16:00 20:00 20:00 Temp 99.2 99.1 Pulse 102 110 Resp 18 24 B/P (MAP) 146/69 (94) 136/86 (103) Pulse Ox 99 95 O2 Delivery Room Air Room Air Room Air Room Air 12/04/16 12/04/16 12/04/16 00:00 04:00 07:42 Temp 99.4 99.6 98.4 Pulse 115 90 90 Resp 22 16 16 B/P (MAP) 132/76 (94) 128/78 (95) 132/74 (93) Pulse Ox 96 96 96 O2 Delivery Room Air Room Air Room Air General: Awake, alert, no acute distress HEENT: Normocephalic, atraumatic, extraocular movements intact CV: Regular rate and rhythm Lungs: Clear to auscultation bilaterally Abd: Soft, Nontender, nondistended Extremities: No edema Neuro: Alert and oriented 3, normal speech Psych: Denies any SI, mildly anxious and disconcerted about what exactly happened Labs and Imaging: Laboratory Tests 12/04/16 04:19 Red Blood Count 4.30, Mean Corpuscular Volume 89.8, Mean Corpuscular Hemoglobin 29.5, Mean Corpuscular Hemoglobin Concent 32.9, Red Cell Distribution Width 13.2 , Neutrophils (%) (Auto) 66.5 H, Lymphocytes (%) (Auto) 20.6 L, Monocytes (%) ( Auto) 11.6 H, Eosinophils (%) (Auto) 0.6, Basophils (%) (Auto) 0.4, Neutrophils # (Auto) 7.0, Lymphocytes # (Auto) 2.2, Monocytes # (Auto) 1.2 H, Eosinophils # (Auto) 0.1, Basophils # (Auto) 0.0, Calcium Level 8.0 L, Phosphorus Level 4.1 # , Aspartate Amino Transf (AST/SGOT) 38 H, Alanine Aminotransferase (ALT/SGPT) 28 , Lactate Dehydrogenase 308 H, Total Creatine Kinase 1513 H, Alkaline Phosphatase 59, Total Bilirubin 0.4, Triglycerides Level 88, Cholesterol Level 161, Total Protein 6.0 L, Albumin 3.1 L Assessment and Plan: 36-year-old healthy male who was brought in by EMS after suffering 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 He was initially intubated for airway protection, but was successfully extubated on 12/03/2016. He has had no further seizures since admission. There is concern that this is secondary to ethylene glycol ingestion. 1. Potential ethylene glycol ingestion: Per the patient, this was not intentional and he is not suicidal. He has been evaluated by psychiatry, who has cleared him for any concern for suicidal ideation or self-harm. I called poison control today, and it appears that they do not currently have an open case on him. After reviewing the situation with them, they have requested ethylene glycol level be sent to [facility] today, which they can expedite, and have the results for us within 6 hours. They state that after they get this result, they will call us back with recommendations on whether or not the fomepizole should be continued. At this time, we will continue fomepizole. 2. Metabolic acidosis with acute kidney injury: This is consistent with the ethylene glycol ingestion. Nephrology is following along and we appreciate their recommendations. The patient has not required dialysis or sodium bicarbonate. Has improved well with IV fluids, which nephrology has now stopped. 3. Leukocytosis: Patient has been afebrile, but his white count upon admission was 18.4. I suspect this is reactive. This has improved nicely and is now 10.5. Urine culture is negative, and blood and sputum cultures are pending. We will follow these up. 4. Anxiety: The patient is quite anxious over the exact circumstances surrounding the situation, as he has no recollection of that. Psychiatry has seen him and has recommended as needed Ativan while in the hospital. We will continue to evaluate him. DVT prophylaxis: Heparin Dispo: transfer to the floor VS, I&O, 24H, Fishbone Vital Signs/I&O Vital Signs Date Time Temp Pulse Resp B/P (MAP) Pulse Ox O2 Delivery O2 Flow Rate FiO2 12/04/16 07:42 98.4 90 16 132/74 (93) 96 Room Air 12/03/16 13:00 2.0 12/03/16 11:00 35 I&O- Last 24 Hours up to 6 AM 12/05/16 06:00 Intake Total 765 ml Output Total 500 ml Balance 265 ml Laboratory Data 24H LABS Laboratory Tests 2 12/04/16 04:19: Immature Granulocyte % (Auto) 0.3H, White Blood Count 10.5H, Red Blood Count 4.30, Hemoglobin 12.7#L, Hematocrit 38.6L, Mean Corpuscular Volume 89.8, Mean Corpuscular Hemoglobin 29.5, Mean Corpuscular Hemoglobin Concent 32.9, Red Cell Distribution Width 13.2, Platelet Count 206, Neutrophils (%) (Auto) 66.5H, Lymphocytes (%) (Auto) 20.6L, Monocytes (%) (Auto) 11.6H, Eosinophils (%) (Auto ) 0.6, Basophils (%) (Auto) 0.4, Neutrophils # (Auto) 7.0, Lymphocytes # (Auto) 2.2, Monocytes # (Auto) 1.2H, Eosinophils # (Auto) 0.1, Basophils # (Auto) 0.0, Immature Granulocyte # (Auto) 0.0, Nucleated Red Blood Cells % (auto) 0.0, Anion Gap 9, Glomerular Filtration Rate > 60.0, Blood Urea Nitrogen 12, Creatinine 1.17, Sodium Level 146H, Potassium Level 3.9, Chloride Level 114H, Carbon Dioxide Level 23, Calcium Level 8.0L, Phosphorus Level 4.1#, Aspartate Amino Transf (AST/SGOT) 38H, Alanine Aminotransferase (ALT/SGPT) 28, Lactate Dehydrogenase 308H, Total Creatine Kinase 1513H, Alkaline Phosphatase 59, Total Bilirubin 0.4, Triglycerides Level 88, Cholesterol Level 161, Total Protein 6.0L , Albumin 3.1L, Albumin/Globulin Ratio 1.07 12/04/16 14:57: CBC/BMP Laboratory Tests 12/04/16 04:19 Red Blood Count 4.30, Mean Corpuscular Volume 89.8, Mean Corpuscular Hemoglobin 29.5, Mean Corpuscular Hemoglobin Concent 32.9, Red Cell Distribution Width 13.2 , Neutrophils (%) (Auto) 66.5 H, Lymphocytes (%) (Auto) 20.6 L, Monocytes (%) ( Auto) 11.6 H, Eosinophils (%) (Auto) 0.6, Basophils (%) (Auto) 0.4, Neutrophils # (Auto) 7.0, Lymphocytes # (Auto) 2.2, Monocytes # (Auto) 1.2 H, Eosinophils # (Auto) 0.1, Basophils # (Auto) 0.0, Calcium Level 8.0 L, Phosphorus Level 4.1 # , Aspartate Amino Transf (AST/SGOT) 38 H, Alanine Aminotransferase (ALT/SGPT) 28 , Lactate Dehydrogenase 308 H, Total Creatine Kinase 1513 H, Alkaline Phosphatase 59, Total Bilirubin 0.4, Triglycerides Level 88, Cholesterol Level 161, Total Protein 6.0 L, Albumin 3.1 L Microbiology Microbiology 12/02/16 Blood Culture - Preliminary, Resulted No growth after 24 hours . All specim... 12/02/16 Blood Culture - Preliminary, Resulted No growth after 24 hours . All specim... 12/03/16 Gram Stain - Final, Resulted 12/03/16 Sputum Culture, Resulted Pending 12/02/16 Urine Culture - Final, Complete SOLOMON TORRES Dec 04, 2016 15:06
[2016-12-04 22:00] VITALS: BP 155/91
[2016-12-05] MEDS: IPRATROPIUM 0.5MG/ALBUTEROL 2.5MG INH SOL UD 3ML (DUONEB)(J7620) NEB SCH ×4 (03:15→11:40)
[2016-12-05] MEDS: HEPARIN SOD (PORCINE) 5000 UNITS/ML VIAL SC SCH (05:13)
[2016-12-05 06:00] VITALS: BP 144/76
[2016-12-05 06:09] LABS: BASO # 0.1 10^3/uL (0.0-0.2); BASO % 0.6 % (0.0-1.0); EOS # 0.1 10^3/uL (0.0-0.50); IMMATURE GRANULOCYTE % 0.2 % (0-0); LYMPH # 2.6 10^3/uL (1.5-4.5); MEAN CORPUSCULAR HEMOGLOBIN 29.7 pg (27.0-33.0); MEAN CORPUSCULAR HGB CONC 33.3 g/dl (32.0-36.5); MEAN CORPUSCULAR VOLUME 89.1 fl (80.0-96.0); MONO # 0.9 10^3/uL (0.0-0.8); MONO % 9.8 % (0.0-5.0); NEUTROPHILS # 5.1 10^3/uL (1.8-7.7); NEUTROPHILS % 58.4 % (36.0-66.0); PLATELET COUNT, AUTOMATED 202 10^3/uL (150-450); RED CELL DISTRIBUTION WIDTH 13.3 % (11.5-14.5); WHITE BLOOD COUNT 8.8 10^3/uL (4.0-10.0)
[2016-12-05 06:34] LABS: ALBUMIN 3.1 GM/DL (3.2-5.2); ALBUMIN/GLOBULIN RATIO 0.97 (1.00-1.93); ALKALINE PHOSPHATASE 54 U/L (45-117); ALT/SGPT 29 U/L (12-78); ANION GAP 8 MEQ/L (8-16); AST/SGOT 28 U/L (15-37); BILIRUBIN,TOTAL 0.3 MG/DL (0.2-1.0); BLOOD UREA NITROGEN 8 MG/DL (7-18); CALCIUM LEVEL 8.8 MG/DL (8.5-10.1); CARBON DIOXIDE LEVEL 26 MEQ/L (21-32); CHLORIDE LEVEL 110 MEQ/L (98-107); CHOLESTEROL LEVEL 148 MG/DL (< 200); CREATININE FOR GFR 0.88 MG/DL (0.70-1.30); GLOMERULAR FILTRATION RATE > 60.0 (>60); GLUCOSE, FASTING 97 MG/DL (70-105); POTASSIUM SERUM 3.6 MEQ/L (3.5-5.1); SODIUM LEVEL 144 MEQ/L (136-145); TOTAL PROTEIN 6.3 GM/DL (6.4-8.2); TRIGLYCERIDES LEVEL 88 MG/DL (<150)
--- NOTE | 2016-12-05 08:04 | REP ---
Portable chest x-ray: Single view. History: Respiratory failure. Comparison study: December 04, 2016. Findings: The lungs are symmetrically aerated and clear. The pleural angles are sharp. Cardiomediastinal silhouette is unremarkable. No bony abnormality is seen. Impression: Negative portable chest x-ray. Signed by Ceferino Solo MD 12/05/2016 07:55 A
[2016-12-05] MEDS: PANTOPRAZOLE 40MG INJ (PROTONIX) (C9113) IV SCH (08:56)
--- NOTE | 2016-12-05 13:54 | DS.PDOC ---
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 He was initially intubated for airway protection, but was successfully extubated on 12/03/2016. He has had no further seizures since admission. There is concern that this is secondary to ethylene glycol ingestion. 1. Potential ethylene glycol ingestion: Per the patient, this was not intentional and he is not suicidal. He has no recollection of the event, to the point that his family has filed a police report as they think he must have been poisoned since he does not think he ingested ethylene glycol. He has been evaluated by psychiatry, who has cleared him for any concern for suicidal ideation or self-harm. The patient was initially on fomepizole, but this was stopped last night. I have been in contact with poison control, and they confirmed that the ethylene glycol level we obtained yesterday was negative, as was the methanol level. It still reads pending in our EMR, but I have confirmed this via phone with Christine from poison control. Any labs that are sent via poison control, they have the ability to expedite the results, which is how they know that these are negative. Unfortunately, the initial ethylene glycol that was sent upon admission was not sent via poison control, and is still pending. Most likely, his seizures are secondary to the ethylene glycol ingestion, as he has not had any since EMS, and imaging of his head does not reveal any mass. However, until we get the results of the initial ethylene glycol level, we will put him on driving and heavy machinery restriction. In the event that the initial ethylene glycol level is negative, we will get him set up with outpatient neurology follow-up for further workup. 2. Metabolic acidosis with acute kidney injury: This is consistent with the ethylene glycol ingestion. Nephrology is following along and we appreciate their recommendations. The patient has not required dialysis or sodium bicarbonate. Has improved well with IV fluids, which nephrology has now stopped. Nephrology has cleared him for discharge. 3. Leukocytosis: Patient has been afebrile, but his white count upon admission was 18.4. I suspect this is reactive. This has improved nicely and is now WNL without any abx. Urine culture and blood cultures are negative, and sputum culture (of a mechanically ventilated patient) showed only few group C strep with mostly normal abigail. 4. Anxiety: The patient is quite anxious over the exact circumstances surrounding the situation, as he has no recollection of that. Psychiatry has seen him and has recommended as needed Ativan while in the hospital. DVT prophylaxis: Heparin PHYSICAL EXAMINATION ON DISCHARGE: VITAL SIGNS: Vital Signs Date Time Temp Pulse Resp B/P (MAP) Pulse Ox O2 Delivery O2 Flow Rate FiO2 12/05/16 09:00 Room Air 12/05/16 06:00 98.7 72 16 144/76 (98) 96 12/03/16 13:00 2.0 12/03/16 11:00 35 General: Awake, alert, no acute distress HEENT: Normocephalic, atraumatic, extraocular movements intact CV: Regular rate and rhythm Lungs: Clear to auscultation bilaterally Abd: Soft, Nontender, nondistended Extremities: No edema Neuro: Alert and oriented 3, normal speech Psych: Denies any SI, mildly anxious and disconcerted about what exactly happened DISPOSITION: Home DISCHARGE INSTRUCTIONS: Follow-up with PCP within one week. The patient does not currently have a PCP, but on Wednesday, our retail administrative assistant will find one for him, and we will call him with the date and time. No driving or operating heavy machinery until we call you with the result of the ethylene glycol level. If symptoms return, or if you experience worsening of your symptoms, please call your doctor or return to the emergency department. ITEMS THAT NEED OUTPATIENT FOLLOWUP: Initial ethylene glycol level Patient was seen and examined by me on the day of discharge, and I spent a total time of greater than 30 minutes on this discharge. Vital Signs/I&Os Vital Signs Date Time Temp Pulse Resp B/P (MAP) Pulse Ox O2 Delivery O2 Flow Rate FiO2 12/05/16 09:00 Room Air 12/05/16 06:00 98.7 72 16 144/76 (98) 96 12/03/16 13:00 2.0 12/03/16 11:00 35 I&O- Last 24 Hours up to 6 AM 12/06/16 06:00 Intake Total 240 ml Output Total 0 ml Balance 240 ml Laboratory Data Labs 24H Laboratory Tests 2 12/04/16 14:54: 12/04/16 14:57: 12/05/16 05:28: Immature Granulocyte % (Auto) 0.2H, White Blood Count 8.8, Red Blood Count 4.21L , Hemoglobin 12.5L, Hematocrit 37.5L, Mean Corpuscular Volume 89.1, Mean Corpuscular Hemoglobin 29.7, Mean Corpuscular Hemoglobin Concent 33.3, Red Cell Distribution Width 13.3, Platelet Count 202, Neutrophils (%) (Auto) 58.4, Lymphocytes (%) (Auto) 30.0, Monocytes (%) (Auto) 9.8H, Eosinophils (%) (Auto) 1.0, Basophils (%) (Auto) 0.6, Neutrophils # (Auto) 5.1, Lymphocytes # (Auto) 2.6, Monocytes # (Auto) 0.9H, Eosinophils # (Auto) 0.1, Basophils # (Auto) 0.1, Immature Granulocyte # (Auto) 0.0, Nucleated Red Blood Cells % (auto) 0.0, Anion Gap 8, Glomerular Filtration Rate > 60.0, Blood Urea Nitrogen 8, Creatinine 0.88, Sodium Level 144, Potassium Level 3.6, Chloride Level 110H, Carbon Dioxide Level 26, Calcium Level 8.8, Phosphorus Level 4.0, Aspartate Amino Transf (AST/SGOT) 28, Alanine Aminotransferase (ALT/SGPT) 29, Lactate Dehydrogenase 264H, Total Creatine Kinase 1271H, Alkaline Phosphatase 54, Total Bilirubin 0.3, Triglycerides Level 88, Cholesterol Level 148, Total Protein 6.3L , Albumin 3.1L, Albumin/Globulin Ratio 0.97L CBC/BMP Laboratory Tests 12/05/16 05:28 Red Blood Count 4.21 L, Mean Corpuscular Volume 89.1, Mean Corpuscular Hemoglobin 29.7, Mean Corpuscular Hemoglobin Concent 33.3, Red Cell Distribution Width 13.3, Neutrophils (%) (Auto) 58.4, Lymphocytes (%) (Auto) 30.0, Monocytes (%) (Auto) 9.8 H, Eosinophils (%) (Auto) 1.0, Basophils (%) ( Auto) 0.6, Neutrophils # (Auto) 5.1, Lymphocytes # (Auto) 2.6, Monocytes # (Auto ) 0.9 H, Eosinophils # (Auto) 0.1, Basophils # (Auto) 0.1, Calcium Level 8.8, Phosphorus Level 4.0, Aspartate Amino Transf (AST/SGOT) 28, Alanine Aminotransferase (ALT/SGPT) 29, Lactate Dehydrogenase 264 H, Total Creatine Kinase 1271 H, Alkaline Phosphatase 54, Total Bilirubin 0.3, Triglycerides Level 88, Cholesterol Level 148, Total Protein 6.3 L, Albumin 3.1 L Microbiology Microbiology 12/02/16 Blood Culture - Preliminary, Resulted No Growth after 48 hours. All Specime... 12/02/16 Blood Culture - Preliminary, Resulted No Growth after 48 hours. All Specime... 12/05/16 Gram Stain, Received Pending 12/05/16 Sputum Culture, Received Pending 12/03/16 Gram Stain - Final, Resulted 12/03/16 Sputum Culture - Preliminary, Resulted Streptococcus Group C 12/02/16 Urine Culture - Final, Complete Discharge Medications No Active Prescriptions or Reported Meds Allergies Coded Allergies: No Known Allergies (Verified , 08/28/02) SOLOMON TORRES Dec 05, 2016 13:54
== END 2016-12-05 14:17 | disposition home or self-care (01) | DRG 816 ==
LOC: M ED 16:06 → M ED INP 18:51 → M ICU 19:59 → M MSPAV 12-04 14:58
PROVIDERS: ADMIT Internal Medicine Pulmonary Disease; ATTEND Hospitalist
PROC: 0BH17EZ Insertion of Endotracheal Airway into Trachea, Via Natural or Artificial Opening (ICD-10-PCS; principal; 2016-12-02)
PROC: 5A1935Z Respiratory Ventilation, Less than 24 Consecutive Hours (ICD-10-PCS; 2016-12-02)
DX: T52.8X1A Toxic effect of other organic solvents, accidental (unintentional), initial encounter (principal); J96.90 Respiratory failure, unspecified, unspecified whether with hypoxia or hypercapnia; R56.9 Unspecified convulsions; N17.9 Acute kidney failure, unspecified; E87.0 Hyperosmolality and hypernatremia; E87.2 Acidosis; M62.82 Rhabdomyolysis; F41.9 Anxiety disorder, unspecified; D72.829 Elevated white blood cell count, unspecified; Y92.59 Other trade areas as the place of occurrence of the external cause; Y99.0 Civilian activity done for income or pay

== ENCOUNTER → 2017-02-01 | Outpatient (REF) | payer OTHER | LOC: M SFHCPLAZ 13:36 | PROVIDERS: ATTEND Family Medicine | DX: Z13.220 Encounter for screening for lipoid disorders (principal); Z82.49 Family history of ischemic heart disease and other diseases of the circulatory system ==

== ENCOUNTER 2017-02-11 12:55 | Emergency (ER) | payer OTHER ==
[~2017-02-11] VITALS: Ht 175.3 cm; Wt 103.5 kg
[2017-02-11] MEDS ORDERED: NS 1,000 ML IV ONE (13:30)
[2017-02-11 13:43] LABS: BASO # 0.1 10^3/uL (0.0-0.2); BASO % 0.8 % (0.0-1.0); EOS % 0.2 % (0.0-3.0); IMMATURE GRANULOCYTE % 0.5 % (0-0); LYMPH # 2.3 10^3/uL (1.5-4.5); LYMPH % 26.8 % (24.0-44.0); MEAN CORPUSCULAR HEMOGLOBIN 29.4 pg (27.0-33.0); MEAN CORPUSCULAR HGB CONC 33.6 g/dl (32.0-36.5); MEAN CORPUSCULAR VOLUME 87.6 fl (80.0-96.0); MONO # 0.7 10^3/uL (0.0-0.8); MONO % 7.6 % (0.0-5.0); NEUTROPHILS # 5.5 10^3/uL (1.8-7.7); NEUTROPHILS % 64.1 % (36.0-66.0); PLATELET COUNT, AUTOMATED 333 10^3/uL (150-450); RED CELL DISTRIBUTION WIDTH 12.8 % (11.5-14.5); WHITE BLOOD COUNT 8.6 10^3/uL (4.0-10.0)
[2017-02-11 13:47] LABS: SQUAM EPITHELIAL CELL UR AURFX 0 /HPF (0-6)
[2017-02-11 13:59] LABS: MICROSCOPIC INDICATED? RFX NO (NO)
[2017-02-11 14:03] LABS: METHADONE URINE NEGATIVE (NEGATIVE)
[2017-02-11 14:06] LABS: ALBUMIN 4.3 GM/DL (3.2-5.2); ALBUMIN/GLOBULIN RATIO 1.08 (1.00-1.93); ALKALINE PHOSPHATASE 63 U/L (45-117); ALT/SGPT 35 U/L (12-78); ANION GAP 13 MEQ/L (8-16); AST/SGOT 24 U/L (7-37); BILIRUBIN,DIRECT < 0.1 MG/DL (0.0-0.2); BILIRUBIN,TOTAL 0.2 MG/DL (0.2-1.0); BLOOD UREA NITROGEN 14 MG/DL (7-18); CALCIUM LEVEL 8.9 MG/DL (8.5-10.1); CARBON DIOXIDE LEVEL 20 MEQ/L (21-32); CHLORIDE LEVEL 105 MEQ/L (98-107); CREATININE FOR GFR 1.16 MG/DL (0.70-1.30); GLOMERULAR FILTRATION RATE > 60.0 (>60); GLUCOSE, FASTING 113 MG/DL (70-105); MAGNESIUM LEVEL 2.5 MG/DL (1.8-2.4); PHOSPHORUS LEVEL 2.6 MG/DL (2.5-4.9); POTASSIUM SERUM 4.2 MEQ/L (3.5-5.1); SODIUM LEVEL 138 MEQ/L (136-145); TOTAL PROTEIN 8.3 GM/DL (6.4-8.2)
--- NOTE | 2017-02-11 14:43 | REP ---
NONCONTRAST HEAD CT: HISTORY: Altered mental status. Seizure. Comparison head CT study December 02, 2016. CT FINDINGS: Preliminary digital fund accountant radiograph is unremarkable. Bone window settings demonstrate an intact bony calvarium. No bony destructive lesion is seen. Visualized paranasal sinuses are clear. No intraorbital abnormality is seen. There is no evidence of intracranial mass or hemorrhage. No infarct, extra-axial fluid collection or midline shift is seen. Gooden/white differentiation pattern is normal. No evidence of hydrocephalous seen. IMPRESSION: Negative noncontrast head CT. Signed by Ceferino Solo MD 02/11/2017 04:01 P
[2017-02-11] MEDS ORDERED: ACETAMINOPHEN TAB 650MG DOSE (2X325MG) PO ONE (15:15)
--- NOTE | 2017-02-11 16:20 | REP ---
Portable chest x-ray: Single view. History: Altered mental status. Question seizure. Comparison study: December 05, 2016. Findings: EKG monitoring electrodes overlie the chest. The heart is not enlarged. Pleural angles are sharp. Pulmonary vasculature is not increased. No significant bony abnormality. Impression: No active disease. Signed by Ceferino Solo MD 02/11/2017 04:11 P
[2017-02-11 17:28] VITALS: BP 147/81
[2017-02-11] MEDS ORDERED: levETIRAcetam 250MG TABLET (KEPPRA) PO ONE (17:30)
[2017-02-11] MEDS ORDERED: KEPP1TAB2 PO (17:36)
--- NOTE | 2017-02-12 16:42 | ECGEPIP ---
Stationary ECG Study [facility] - ED Test Date: 2017-02-11 Pat Name: BROKOE RILEY Department: Room: - Gender: M Barman: LE : 1980 Requested By: GRISELDA Martinez Order Number: [id number] Reading MD: Kaylyn Serrano Measurements Intervals [place] Rate: 110 P: 25 OK: 176 QRS: 51 QRSD: 84 T: 9 QT: 311 QTc: 421 Interpretive Statements SINUS TACHYCARDIA ABNORMAL RHYTHM ECG SIMIALR 12/02/16 Electronically Signed On 02-12-2017 16:42:38 EST by Kaylyn Serrano
== END 2017-02-11 17:44 | disposition home or self-care (01) ==
LOC: M ED 12:55
DX: R56.9 Unspecified convulsions (principal); F19.11 Other psychoactive substance abuse, in remission; F17.210 Nicotine dependence, cigarettes, uncomplicated; Z87.81 Personal history of (healed) traumatic fracture; Z86.69 Personal history of other diseases of the nervous system and sense organs

== ENCOUNTER → 2017-04-15 | Outpatient (CLI) | payer OTHER | LOC: M SMT 13:26 | DX: G37.9 Demyelinating disease of central nervous system, unspecified (principal) | CPT/HCPCS: 82525 ==

== ENCOUNTER 2017-05-05 15:08 | Emergency (ER) | payer OTHER ==
[2017-05-05 15:52] LABS: ALBUMIN 4.2 GM/DL (3.2-5.2); ALBUMIN/GLOBULIN RATIO 1.08 (1.00-1.93); ALKALINE PHOSPHATASE 77 U/L (45-117); ALT/SGPT 29 U/L (12-78); ANION GAP 17 MEQ/L (8-16); AST/SGOT 18 U/L (7-37); BILIRUBIN,TOTAL 0.2 MG/DL (0.2-1.0); BLOOD UREA NITROGEN 13 MG/DL (7-18); CALCIUM LEVEL 8.2 MG/DL (8.5-10.1); CARBON DIOXIDE LEVEL 14 MEQ/L (21-32); CHLORIDE LEVEL 107 MEQ/L (98-107); CREATININE FOR GFR 1.25 MG/DL (0.70-1.30); GLOMERULAR FILTRATION RATE > 60.0 (>60); GLUCOSE, FASTING 168 MG/DL (70-100); POTASSIUM SERUM 4.3 MEQ/L (3.5-5.1); SODIUM LEVEL 138 MEQ/L (136-145); TOTAL PROTEIN 8.1 GM/DL (6.4-8.2)
[2017-05-05] MEDS: levETIRAcetam INJection 1,000 MG in D5W 100 ML IV (17:56)
[2017-05-09 00:09] LABS: LEVETIRACETAM (KEPPRA) 9.5 ug/mL (10.0-40.0)
== END 2017-05-05 18:54 | disposition home or self-care (01) ==
LOC: M ED 15:08
DX: G40.909 Epilepsy, unspecified, not intractable, without status epilepticus (principal); S01.01XA Laceration without foreign body of scalp, initial encounter
CPT/HCPCS: J1953

== ENCOUNTER 2017-05-06 10:24 | Emergency (ER) | payer OTHER ==
[2017-05-06 11:11] LABS: BASO % 0.3 % (0.0-1.0); EOS % 0.1 % (0.0-3.0); HEMATOCRIT 46.4 % (42.0-52.0); IMMATURE GRANULOCYTE % 0.2 % (0-3.0); LYMPH # 1.9 10^3/uL (1.5-4.5); LYMPH % 16.8 % (24.0-44.0); MEAN CORPUSCULAR HEMOGLOBIN 29.7 pg (27.0-33.0); MEAN CORPUSCULAR HGB CONC 34.5 g/dl (32.0-36.5); MEAN CORPUSCULAR VOLUME 86.2 fl (80.0-96.0); MONO # 0.8 10^3/uL (0.0-0.8); MONO % 7.2 % (0.0-5.0); NEUTROPHILS # 8.6 10^3/uL (1.8-7.7); NEUTROPHILS % 75.4 % (36.0-66.0); PLATELET COUNT, AUTOMATED 283 10^3/uL (150-450); RED BLOOD COUNT 5.38 10^6/uL (4.30-6.10); RED CELL DISTRIBUTION WIDTH 12.9 % (11.5-14.5); WHITE BLOOD COUNT 11.5 10^3/uL (4.0-10.0)
[2017-05-06 11:38] LABS: ANION GAP 9 MEQ/L (8-16); BLOOD UREA NITROGEN 12 MG/DL (7-18); CARBON DIOXIDE LEVEL 25 MEQ/L (21-32); CHLORIDE LEVEL 106 MEQ/L (98-107); CREATININE FOR GFR 0.92 MG/DL (0.70-1.30); GLOMERULAR FILTRATION RATE > 60.0 (>60); GLUCOSE, FASTING 107 MG/DL (70-100); SODIUM LEVEL 140 MEQ/L (136-145)
[2017-05-06] MEDS: NS 1,000 ML IV (12:31)
[2017-05-06] MEDS: diphenhydrAMINE INJ 50MG/ML VIAL (J1200) IV (12:31)
[2017-05-06] MEDS: METOCLOPRAMIDE INJ 10MG/2ML VIAL (J2765) IV (12:31)
[2017-05-09 00:09] LABS: LEVETIRACETAM (KEPPRA) 3.1 ug/mL (10.0-40.0)
== END 2017-05-06 15:32 | disposition home or self-care (01) ==
LOC: M ED 10:24
DX: S06.0X0A Concussion without loss of consciousness, initial encounter (principal); R56.9 Unspecified convulsions; X58.XXXA Exposure to other specified factors, initial encounter; Y92.89 Other specified places as the place of occurrence of the external cause; F17.200 Nicotine dependence, unspecified, uncomplicated; Z79.899 Other long term (current) drug therapy; Z87.828 Personal history of other (healed) physical injury and trauma
CPT/HCPCS: J1200

== ENCOUNTER 2017-05-15 13:19 | Emergency (ER) | payer OTHER | END 2017-05-15 13:53 | disposition home or self-care (01) | LOC: M ED 13:19 | DX: Z48.02 Encounter for removal of sutures (principal); R56.9 Unspecified convulsions; F17.210 Nicotine dependence, cigarettes, uncomplicated; Z79.899 Other long term (current) drug therapy | CPT/HCPCS: 99282 ==

== ENCOUNTER 2017-10-21 20:22 | Emergency (ER) | payer OTHER ==
[2017-10-21 21:32] LABS: HEMATOCRIT 45.2 % (42.0-52.0); HEMOGLOBIN 15.6 g/dl (13.5-17.5); MEAN CORPUSCULAR HEMOGLOBIN 30.4 pg (27.0-33.0); MEAN CORPUSCULAR HGB CONC 34.5 g/dl (32.0-36.5); MEAN CORPUSCULAR VOLUME 87.9 fl (80.0-96.0); PLATELET COUNT, AUTOMATED 247 10^3/uL (150-450); RED BLOOD COUNT 5.14 10^6/uL (4.30-6.10); RED CELL DISTRIBUTION WIDTH 13.1 % (11.5-14.5); WHITE BLOOD COUNT 15.6 10^3/uL (4.0-10.0)
[2017-10-21 21:49] LABS: ANION GAP 7 MEQ/L (8-16); BLOOD UREA NITROGEN 12 MG/DL (7-18); CALCIUM LEVEL 8.9 MG/DL (8.5-10.1); CARBON DIOXIDE LEVEL 27 MEQ/L (21-32); CHLORIDE LEVEL 107 MEQ/L (98-107); CREATININE FOR GFR 1.12 MG/DL (0.70-1.30); ETHYL ALCOHOL (ETHANOL) 0.006 % (0.000-0.010); GLOMERULAR FILTRATION RATE > 60.0 (>60); GLUCOSE, FASTING 96 MG/DL (70-100); POTASSIUM SERUM 3.9 MEQ/L (3.5-5.1); SODIUM LEVEL 141 MEQ/L (136-145)
[2017-10-27 00:06] LABS: LEVETIRACETAM (KEPPRA) 8.3 ug/mL (10.0-40.0)
== END 2017-10-21 23:44 | disposition home or self-care (01) ==
LOC: M ED 20:22
DX: R56.9 Unspecified convulsions (principal); F17.210 Nicotine dependence, cigarettes, uncomplicated
CPT/HCPCS: 73110

== ENCOUNTER → 2017-11-04 | Outpatient (REF) | payer OTHER ==
[2017-11-04 18:30] LABS: BASO # 0.1 10^3/uL (0.0-0.2); BASO % 0.7 % (0.0-1.0); EOS # 0.1 10^3/uL (0.0-0.50); EOS % 0.9 % (0.0-3.0); HEMATOCRIT 44.8 % (42.0-52.0); HEMOGLOBIN 15.4 g/dl (13.5-17.5); IMMATURE GRANULOCYTE % 0.1 % (0-3.0); LYMPH # 2.7 10^3/uL (1.5-4.5); LYMPH % 30.8 % (24.0-44.0); MEAN CORPUSCULAR HEMOGLOBIN 30.1 pg (27.0-33.0); MEAN CORPUSCULAR HGB CONC 34.4 g/dl (32.0-36.5); MEAN CORPUSCULAR VOLUME 87.5 fl (80.0-96.0); MONO # 0.8 10^3/uL (0.0-0.8); MONO % 8.7 % (0.0-5.0); NEUTROPHILS # 5.2 10^3/uL (1.8-7.7); NEUTROPHILS % 58.8 % (36.0-66.0); PLATELET COUNT, AUTOMATED 284 10^3/uL (150-450); RED BLOOD COUNT 5.12 10^6/uL (4.30-6.10); WHITE BLOOD COUNT 8.8 10^3/uL (4.0-10.0)
[2017-11-04 19:15] LABS: ALBUMIN 4.1 GM/DL (3.2-5.2); ALBUMIN/GLOBULIN RATIO 1.21 (1.00-1.93); ALKALINE PHOSPHATASE 62 U/L (45-117); ALT/SGPT 23 U/L (12-78); ANION GAP 8 MEQ/L (8-16); AST/SGOT 15 U/L (7-37); BILIRUBIN,TOTAL 0.3 MG/DL (0.2-1.0); BLOOD UREA NITROGEN 11 MG/DL (7-18); CALCIUM LEVEL 8.9 MG/DL (8.5-10.1); CARBON DIOXIDE LEVEL 23 MEQ/L (21-32); CHLORIDE LEVEL 108 MEQ/L (98-107); CREATININE FOR GFR 0.82 MG/DL (0.70-1.30); GLOMERULAR FILTRATION RATE > 60.0 (>60); GLUCOSE, FASTING 91 MG/DL (70-100); SODIUM LEVEL 139 MEQ/L (136-145); THYROID STIMULATING HORMONE 0.955 uIU/ML (0.358-3.740); TOTAL PROTEIN 7.5 GM/DL (6.4-8.2)
[2017-11-04 19:54] LABS: TOTAL 25(OH) VITAMIN D 15.3 NG/ML (30.0-100.0)
[2017-11-05 12:21] LABS: HEPATITIS B SURFACE ANTIBODY NEGATIVE (POSITIVE)
[2017-11-05 12:32] LABS: HEPATITIS C VIRUS ABY INDEX 0.1 INDEX (<0.8)
== END ==
LOC: M LABNEURO 14:28
DX: R90.89 Other abnormal findings on diagnostic imaging of central nervous system (principal)
CPT/HCPCS: 84443

== ENCOUNTER → 2018-01-17 | Outpatient (REF) | payer OTHER ==
[2018-01-17 17:48] LABS: BASO % 0.4 % (0.0-1.0); EOS % 0.4 % (0.0-3.0); HEMATOCRIT 46.5 % (42.0-52.0); HEMOGLOBIN 15.7 g/dl (13.5-17.5); IMMATURE GRANULOCYTE % 0.2 % (0-3.0); LYMPH # 2.9 10^3/uL (1.5-4.5); MEAN CORPUSCULAR HGB CONC 33.8 g/dl (32.0-36.5); MEAN CORPUSCULAR VOLUME 88.7 fl (80.0-96.0); MONO # 0.6 10^3/uL (0.0-0.8); NEUTROPHILS # 5.4 10^3/uL (1.8-7.7); PLATELET COUNT, AUTOMATED 304 10^3/uL (150-450); RED BLOOD COUNT 5.24 10^6/uL (4.30-6.10); RED CELL DISTRIBUTION WIDTH 12.7 % (11.5-14.5); WHITE BLOOD COUNT 8.9 10^3/uL (4.0-10.0)
[2018-01-17 19:28] LABS: ALBUMIN/GLOBULIN RATIO 1.25 (1.00-1.93); ALKALINE PHOSPHATASE 73 U/L (45-117); ALT/SGPT 26 U/L (12-78); ANION GAP 7 MEQ/L (8-16); AST/SGOT 15 U/L (7-37); BILIRUBIN,TOTAL 0.4 MG/DL (0.2-1.0); BLOOD UREA NITROGEN 13 MG/DL (7-18); CALCIUM LEVEL 8.6 MG/DL (8.5-10.1); CARBON DIOXIDE LEVEL 27 MEQ/L (21-32); CHLORIDE LEVEL 107 MEQ/L (98-107); CREATININE FOR GFR 0.97 MG/DL (0.70-1.30); GLOMERULAR FILTRATION RATE > 60.0 (>60); GLUCOSE, FASTING 89 MG/DL (70-100); POTASSIUM SERUM 4.3 MEQ/L (3.5-5.1); SODIUM LEVEL 141 MEQ/L (136-145); TOTAL PROTEIN 7.2 GM/DL (6.4-8.2)
[2018-01-19 10:20] LABS: HEPATITIS B SURFACE ANTIBODY NEGATIVE (POSITIVE)
[2018-01-19 10:57] LABS: HEPATITIS C VIRUS ABY INDEX 0.1 INDEX (<0.8)
[2018-01-19 10:59] LABS: HEPATITIS A ANTIBODY IGM NEGATIVE (NEGATIVE)
[2018-01-24 14:10] LABS: ANGIOTENSIN 1 CONVERTING ENZYM 51 U/L (14-82); HERPES ZOSTER, VARICELLA IgG 2716 index (Immune >165); JCV ANTIBODY BY INHIBITION Positive (.); Lyme Disease IgG/IgM Antibodie <0.91 ISR (0.00-0.90); Lyme Disease IgM Ab Quantitati <0.80 index (0.00-0.79)
== END ==
LOC: M LABNEURO 15:12
DX: G35 Multiple sclerosis (principal)

== ENCOUNTER 2018-05-30 00:25 | Inpatient (IN) | payer OTHER ==
[~2018-05-30] VITALS: Ht 175.3 cm; Wt 95.5 kg
[2018-05-30] VITALS (23 sets, daily range): BP systolic 89–157; BP diastolic 51–88
[~2018-05-30 00:25] MED LIST: KEPP10002 PO; KEPP1TAB2 PO; REGL10TA6 PO
[2018-05-30] MEDS ORDERED: levETIRAcetam INJection 1,000 MG in D5W 100 ML IV ONE (01:00)
[2018-05-30 01:17] LABS: BASO # 0.1 10^3/uL (0.0-0.2); BASO % 0.4 % (0.0-1.0); EOS # 0.1 10^3/uL (0.0-0.50); EOS % 0.3 % (0.0-3.0); HEMATOCRIT 51.6 % (42.0-52.0); HEMOGLOBIN 16.1 g/dl (13.5-17.5); LYMPH # 4.3 10^3/uL (1.5-4.5); LYMPH % 16.1 % (24.0-44.0); MEAN CORPUSCULAR HGB CONC 31.2 g/dl (32.0-36.5); MEAN CORPUSCULAR VOLUME 96.3 fl (80.0-96.0); MONO # 0.8 10^3/uL (0.0-0.8); MONO % 3.2 % (0.0-5.0); NEUTROPHILS # 21.1 10^3/uL (1.8-7.7); NEUTROPHILS % 79.1 % (36.0-66.0); PLATELET COUNT, AUTOMATED 366 10^3/uL (150-450); RED BLOOD COUNT 5.36 10^6/uL (4.30-6.10); WHITE BLOOD COUNT 26.7 10^3/uL (4.0-10.0)
[2018-05-30 01:34] LABS: BLOOD UREA NITROGEN 13 MG/DL (7-18); CARBON DIOXIDE LEVEL 12 MEQ/L (21-32); CHLORIDE LEVEL 105 MEQ/L (98-107); GLOMERULAR FILTRATION RATE 56.4 (>60); GLUCOSE, FASTING 245 MG/DL (70-100); SODIUM LEVEL 139 MEQ/L (136-145)
[2018-05-30] MEDS ORDERED: MIDAZOLAM INJ 2 MG/2 ML VIAL (J2250) IV STA (01:43)
[2018-05-30] MEDS ORDERED: NS 1,000 ML IV ONE (01:45)
[2018-05-30] MEDS ORDERED: BUPIVACAINE LIPOSOME/PF 1.3% 20ML VIAL (13.3MG/ML)(EXPAREL)(C9290 PER1MG) INFIL ONE (01:45)
[2018-05-30] MEDS ORDERED: HumuLIN R (REGULAR) INSULIN (NovoLIN R) **100U/ML** PER UNIT IV ONE (02:15)
[2018-05-30] MEDS ORDERED: HALOPERIDOL 5 MG/ML VIAL (J1630) IM STA (02:23)
[2018-05-30] MEDS ORDERED: diphenhydrAMINE INJ 50MG/ML VIAL (J1200) As Ordered ONE (02:25)
[2018-05-30] MEDS ORDERED: HALOPERIDOL 5 MG/ML VIAL (J1630) As Ordered ONE (02:25)
[2018-05-30] MEDS ORDERED: diphenhydrAMINE INJ 50MG/ML VIAL (J1200) IM ONE (02:30)
[2018-05-30 02:43] LABS: AMPHETAMINES LEVEL URINE NEGATIVE (NEGATIVE); BARBITURATES URINE NEGATIVE (NEGATIVE); BENZODIAZEPINES URINE POSITIVE (NEGATIVE); CANNABINOIDS URINE POSITIVE (NEGATIVE); COCAINE METABOLITE URINE NEGATIVE (NEGATIVE); METHADONE URINE NEGATIVE (NEGATIVE); OPIATES URINE NEGATIVE (NEGATIVE); PHENCYCLIDINE URINE NEGATIVE (NEGATIVE)
[2018-05-30] MEDS ORDERED: chlorproMAZINE INJ 50MG/2ML AMP (J3230) IM STA (02:50)
[2018-05-30 03:22] LABS: ETHYL ALCOHOL (ETHANOL) < 0.003 % (0.000-0.010)
[2018-05-30] MEDS ORDERED: PROPOFOL 1,000 MG/100 ML VIAL As Ordered ONE ×2 (03:34→04:52)
[2018-05-30 04:35] LABS: CPK CREATINE PHOSPHOKINASE 322 U/L (39-308)
[2018-05-30] MEDS ORDERED: PHARMACY COMMENT (05:17)
--- NOTE | 2018-05-30 05:27 | REPVR ---
EXAM: CT Head Without Contrast EXAM DATE/TIME: 05/30/2018 4:53 AM CLINICAL HISTORY: 37 years old, male; Pain; Headache; Additional info: AMS TECHNIQUE: Imaging protocol: Axial computed tomography images of the head/brain without contrast. Radiation optimization: All CT scans at this facility use at least one of these dose optimization techniques: automated exposure control; mA and/or kV adjustment per patient size (includes targeted exams where dose is matched to clinical indication); or iterative reconstruction. COMPARISON: CT Head without contrast 10/21/2017 9:01 PM FINDINGS: Brain: Normal. No hemorrhage. No significant white matter disease. No edema. Ventricles: Normal. No ventriculomegaly. Bones/joints: Unremarkable. No acute fracture. Sinuses: Visualized sinuses are unremarkable. No acute sinusitis. Mastoid air cells: Visualized mastoid air cells are unremarkable. No mastoid effusion. Soft tissues: Unremarkable. IMPRESSION: No acute intracranial abnormality. Electronically signed by: Cedrick Pitts On 05/30/2018 05:27:18 AM
[2018-05-30] MEDS ORDERED: PROPOFOL 1,000 MG in APPROPRIATE DILUENT 1 EA IV SCH (05:30)
[2018-05-30 05:58] LABS: ABG BASE EXCESS -4.3 (-2.0-2.0); ABG HCO3 20.6 MEQ/L (22.0-26.0); ABG O2 SATURATION 99.2 % (95.0-99.0); ABG PARTIAL PRESSURE CO2 37.7 mmHg (35.0-45.0); ABG PARTIAL PRESSURE O2 157.9 mmHg (75.0-100.0); ABG TOTAL CO2 21.8 MEQ/L (22.0-29.0); ABG pH (ARTERIAL) 7.356 UNITS (7.350-7.450)
[2018-05-30] MEDS ORDERED: METO10TA2 PO (06:12)
[2018-05-30] MEDS ORDERED: GLAT40IN SC (06:12)
[2018-05-30] MEDS ORDERED: KEPP10002 PO (06:12)
[2018-05-30 07:01] LABS: BASO % 0.2 % (0.0-1.0); HEMATOCRIT 42.3 % (42.0-52.0); LYMPH % 5.4 % (24.0-44.0); MEAN CORPUSCULAR HEMOGLOBIN 29.7 pg (27.0-33.0); MEAN CORPUSCULAR HGB CONC 33.1 g/dl (32.0-36.5); MEAN CORPUSCULAR VOLUME 89.8 fl (80.0-96.0); MONO # 1.3 10^3/uL (0.0-0.8); MONO % 6.6 % (0.0-5.0); NEUTROPHILS # 16.5 10^3/uL (1.8-7.7); NEUTROPHILS % 87.2 % (36.0-66.0); RED BLOOD COUNT 4.71 10^6/uL (4.30-6.10); WHITE BLOOD COUNT 18.9 10^3/uL (4.0-10.0)
--- NOTE | 2018-05-30 07:08 | REP ---
Portable chest, 03:57 a.m., single AP supine view: Comparison is 02/11/2017. There is an endotracheal tube with the tip in the orifice of the bronchus intermedius. There is a nasogastric tube terminating satisfactorily in the abdominal left upper quadrant. Lung mitchell are clear. Cardiac size is normal. Electronically Signed by Mahesh Solano MD 05/30/2018 07:00 A
--- NOTE | 2018-05-30 07:13 | REP ---
Portable chest, 04:09 a.m.: Comparison is 03:57 a.m. Studies performed for ET repositioning. The tip of the endotracheal tube is in the trachea approximately 3 cm above the harpreet at the level of the aortic arch in satisfactory location. The nasogastric tube tip remains in satisfactory location in the abdominal left upper quadrant. There is a third tube superimposed over the trachea with an opaque marker. The distal tip appears to be at the level of the aortic arch. This is also unchanged. Electronically Signed by Mahesh Solano MD 05/30/2018 07:04 A
[2018-05-30 07:19] LABS: PLATELET COUNT, AUTOMATED 224 10^3/uL (150-450)
[2018-05-30 07:20] LABS: ACETAMINOPHEN LEVEL < 2.0 UG/ML (10.0-30.0); ALBUMIN 3.5 GM/DL (3.2-5.2); ALT/SGPT 20 U/L (12-78); BILIRUBIN,DIRECT < 0.1 MG/DL (0.0-0.2); BILIRUBIN,TOTAL 0.2 MG/DL (0.2-1.0); TOTAL PROTEIN 6.3 GM/DL (6.4-8.2)
[2018-05-30] MEDS: PROPOFOL 1,000 MG in APPROPRIATE DILUENT 1 EA IV SCH ×7 (07:31→23:11)
[2018-05-30] MEDS: NS 1,000 ML IV SCH ×4 (08:25→22:07)
[2018-05-30] MEDS: PANTOPRAZOLE 40MG INJ (PROTONIX) (C9113) IV SCH (08:26)
[2018-05-30] MEDS: ENOXAPARIN 40 MG/0.4 ML SYRINGE (J1650) SC SCH (08:26)
[2018-05-30] MEDS: CHLORHEXIDINE GLUCONATE 0.12 % 15ML UDC (PERIDEX ORAL RINSE) MT SCH ×2 (08:26→20:32)
[2018-05-30 08:27] LABS: CPK CREATINE PHOSPHOKINASE 1363 U/L (39-308)
[2018-05-30 08:41] LABS: BLOOD UREA NITROGEN 14 MG/DL (7-18); CALCIUM LEVEL 8.3 MG/DL (8.5-10.1); CARBON DIOXIDE LEVEL 18 MEQ/L (21-32); CHLORIDE LEVEL 115 MEQ/L (98-107); CREATININE FOR GFR 1.31 MG/DL (0.70-1.30); GLOMERULAR FILTRATION RATE > 60.0 (>60); GLUCOSE, FASTING 87 MG/DL (70-100); POTASSIUM SERUM 4.3 MEQ/L (3.5-5.1); SODIUM LEVEL 142 MEQ/L (136-145)
[2018-05-30] MEDS ORDERED: levETIRAcetam 250MG TABLET (KEPPRA) PO SCH (09:00)
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
[2018-05-30] MEDS: levETIRAcetam ORAL SOLUTION 500 MG/5 ML UDC GT SCH ×2 (10:36→20:33)
[2018-05-30] MEDS: LORazepam 2 MG/ML VIAL (J2060) IV PRN ×2 (14:15→16:05)
[2018-05-30] MEDS: dexmedeTOMidine 200 MCG in APPROPRIATE DILUENT 1 EA IV SCH ×2 (17:31→20:35)
[2018-05-30] MEDS: MIDAZOLAM INJ 2 MG/2 ML VIAL (J2250) IV PRN (18:22)
[2018-05-30 19:00] LABS: CREATININE FOR GFR 1.44 MG/DL (0.70-1.30); GLOMERULAR FILTRATION RATE 59.1 (>60)
[2018-05-30] MEDS: D5W 1,000 ML IV SCH (22:07)
[2018-05-31] VITALS (19 sets, daily range): BP systolic 89–156; BP diastolic 52–93; O2SAT 98–99
[2018-05-31] MEDS: NS 1,000 ML IV SCH ×4 (01:39→13:07)
[2018-05-31] MEDS: dexmedeTOMidine 200 MCG in APPROPRIATE DILUENT 1 EA IV SCH ×2 (02:33→07:52)
[2018-05-31] MEDS: MIDAZOLAM INJ 2 MG/2 ML VIAL (J2250) IV PRN ×3 (02:51→06:05)
[2018-05-31 05:00] LABS: BASO % 0.2 % (0.0-1.0); EOS % 0.2 % (0.0-3.0); HEMATOCRIT 40.1 % (42.0-52.0); HEMOGLOBIN 12.9 g/dl (13.5-17.5); LYMPH # 1.6 10^3/uL (1.5-4.5); LYMPH % 13.3 % (24.0-44.0); MEAN CORPUSCULAR HEMOGLOBIN 29.4 pg (27.0-33.0); MEAN CORPUSCULAR HGB CONC 32.2 g/dl (32.0-36.5); MEAN CORPUSCULAR VOLUME 91.3 fl (80.0-96.0); MONO # 0.8 10^3/uL (0.0-0.8); MONO % 6.9 % (0.0-5.0); NEUTROPHILS # 9.6 10^3/uL (1.8-7.7); NEUTROPHILS % 78.9 % (36.0-66.0); PLATELET COUNT, AUTOMATED 204 10^3/uL (150-450); RED BLOOD COUNT 4.39 10^6/uL (4.30-6.10); WHITE BLOOD COUNT 12.1 10^3/uL (4.0-10.0)
[2018-05-31 05:34] LABS: ABG BASE EXCESS -7.1 (-2.0-2.0); ABG HCO3 17.8 MEQ/L (22.0-26.0); ABG O2 SATURATION 97.6 % (95.0-99.0); ABG PARTIAL PRESSURE CO2 34.5 mmHg (35.0-45.0); ABG PARTIAL PRESSURE O2 105.1 mmHg (75.0-100.0); ABG STANDARD HCO3 18.7 MEQ/L (22.0-26.0); ABG TOTAL CO2 18.9 MEQ/L (22.0-29.0); ABG pH (ARTERIAL) 7.331 UNITS (7.350-7.450)
[2018-05-31 05:45] LABS: BLOOD UREA NITROGEN 13 MG/DL (7-18); CALCIUM LEVEL 7.5 MG/DL (8.5-10.1); CARBON DIOXIDE LEVEL 21 MEQ/L (21-32); CHLORIDE LEVEL 119 MEQ/L (98-107); CPK CREATINE PHOSPHOKINASE 1587 U/L (39-308); CREATININE FOR GFR 1.22 MG/DL (0.70-1.30); GLOMERULAR FILTRATION RATE > 60.0 (>60); GLUCOSE, FASTING 111 MG/DL (70-100); POTASSIUM SERUM 4.1 MEQ/L (3.5-5.1); SODIUM LEVEL 146 MEQ/L (136-145)
[2018-05-31] MEDS: PROPOFOL 1,000 MG in APPROPRIATE DILUENT 1 EA IV SCH (05:49)
[2018-05-31] MEDS: D5W 1,000 ML IV SCH (07:18)
--- NOTE | 2018-05-31 07:49 | REP ---
Portable chest, 06:43 a.m., single semi upright AP view: Comparison is cellar 05/30/2018. There is a focal zone of atelectasis above the right hemidiaphragm as an interval change. The lung mitchell otherwise clear. Cardiac size is normal. The raul, mediastinum, and skeletal structures are unremarkable and unchanged. There is an endotracheal tube with the tip in satisfactory position at the level of the aortic arch, above the harpreet. There is an endotracheal tube terminating satisfactorily in the abdominal left upper quadrant. Impression: New focal zone of atelectasis inferiorly in the right lung. Electronically Signed by Mahesh Solano MD 05/31/2018 07:39 A
--- NOTE | 2018-05-31 08:49 | CR ---
DATE OF CONSULTATION: 05/31/2018 REFERRING PROVIDER: Dr. Payton Maravilla REASON FOR CONSULTATION: Suspected seizure. HISTORY OF PRESENTING ILLNESS: Sergei Hernández is a 37-year-old male with past medical history significant for suspected seizure disorder as well as multiple sclerosis. The patient has been on Keppra 1500 mg twice a day. The patient was scheduled to have a video electroencephalogram (EEG) monitoring admission at [facility]. The patient unfortunately in the middle of the night was witnessed by his to have had three grand mal generalized tonic-clonic seizures. The patient did not return back to baseline between. It seems the patient likely was status epilepticus. He was brought to [facility]. He was quite agitated, violent. The patient was given multiple medications to assist in combating his symptoms. He was given 5 mg of Versed by the emergency department, followed by another 5 mg. In the emergency department, he was noted to have been incontinent.. He did not have any tongue biting or any other bodily injuries. He became more combative in the emergency department. He was not following commands. He was violent, pulling off wires, trying to get out of bed. Security had to have been called. The patient was given intravenous (IV) Versed 5 mg with minimal improvement, Haldol 7.5 mg intramuscular and Benadryl 50 mg IM. 1 liter of saline was given. Thorazine 50 mg IM was given. The patient was ultimately intubated. He required high amounts of propofol to keep him sedated. Head CT was completed, which did not show any acute problems. The patient has been having some difficulty tolerating medications at home, including the generic forms of Copaxone for the treatment of his multiple sclerosis (MS). He has been noncompliant not taking them in general. The patient was originally planned to have been slowly weaned off Keppra. However, as per the patient's , the patient has been noncompliant sometimes missing full doses all together. The patient may have had antiepileptic medication withdrawal seizures. Ambulatory EEG, routine EEGs in the past have been normal without epileptic potential. Video EEG monitoring was to be completed to identify other subtle forms of seizure disorder. REVIEW OF SYSTEMS: Unobtainable. The patient is laying in the intensive care unit (ICU) bed, intubated on significant amounts of propofol. He is being planned to be switched over to Precedex. EEG was attempted, but could not be completed as the patient again started to wake up and become combative, trying to pull out his endotracheal tube (ET) tube. He is on as needed Ativan and Versed for agitation. LABORATORY WORK: WBC count is 18.9. Prolactin level 0.36, normal is less than 0.0, minimally elevated. Urinalysis positive for benzodiazepines and cannabinoids. Urinalysis negative. CPK 1363. Normal CMP. I SOCIAL HISTORY: As per the chart, the patient is a current smoker attempting to quit. He uses marijuana regularly and uses alcohol socially. FAMILY HISTORY: Noncontributory. No history of epilepsy in the family. PHYSICAL EXAMINATION: Blood pressure is 115/62, pulse rate 82, respiratory rate is 18, temperature is 99.7 degrees Fahrenheit, oxygenation is 97% on 35% FiO2. Height is 5 feet 9 inches. Weight is 85 kg. The patient is intubated, heavily sedated. Neurological examination is not possible. When the patient's sedation is lightened, he moves all four extremities with adequate strength trying to kick and move and pull and reached towards his ET tube. The patient does not follow commands. The patient remains quite agitated. Deep tendon reflexes presently are depressed secondary to propofol. Pupils are not reactive secondary propofol. Rest of neurological examination not possible due to the patient's current neurological condition. ASSESSMENT: 37-year-old male with past medical history of multiple sclerosis and suspected seizure disorder, noncompliant with antiepileptic medications, despite plan to slowly tapered down dosage of levetiracetam and plans for video EEG monitoring. At this point in time, Dr. Mervin Kessler at [facility] is ready to accept the patient for EEG monitoring when medically stable. EEG will be attempted to rule out any subclinical status epilepticus. He will remain on Keppra 1500 mg by mouth twice a day. Propofol will be gradually switched over to Precedex to better accommodate the patient's agitation. Management of sedation and ventilator as per primary team. Recommend EEG to be hooked up prior to withdrawing off sedation. The patient will followup in the outpatient clinic for resuming MS therapy.
[2018-05-31] MEDS: PANTOPRAZOLE 40MG INJ (PROTONIX) (C9113) IV SCH (08:57)
[2018-05-31] MEDS: ENOXAPARIN 40 MG/0.4 ML SYRINGE (J1650) SC SCH (08:58)
[2018-05-31] MEDS: levETIRAcetam ORAL SOLUTION 500 MG/5 ML UDC GT SCH (08:58)
[2018-05-31] MEDS: CHLORHEXIDINE GLUCONATE 0.12 % 15ML UDC (PERIDEX ORAL RINSE) MT SCH (08:58)
[2018-05-31] MEDS ORDERED: PROPOFOL 200 MG/20 ML VIAL ONE (10:10)
[2018-05-31] MEDS ORDERED: SUCCINYLCHOLINE 100 MG/5 ML SYRINGE (J0330) ONE (10:10)
[2018-05-31] MEDS: AUGMENTIN 875 MG TAB PO SCH ×2 (13:07→20:09)
[2018-05-31] MEDS: NS 0.45% 1,000 ML IV SCH ×2 (14:00→20:05)
--- NOTE | 2018-05-31 18:22 | EEG ---
DATE OF PROCEDURE: 05/31/2018 REFERRING PHYSICIAN: Dr. Kaci Fitzpatrick DIAGNOSIS: Seizure. EEG NUMBER: [id number] HISTORY: The patient is a 37-year-old man who was admitted at [facility] due to seizures. This EEG was done to rule out epileptic potential. The patient had five witnessed generalized tonic-clonic seizures. The patient is intubated on mechanical ventilator and received propofol, Versed, Keppra. TECHNICAL DESCRIPTION: This digital EEG was recorded by 21 scalp, ear, and two EKG electrodes and was reviewed in bipolar and referential montages following reformatting in 10-20 international electrode placement system. INTERPRETATION: The patient remained mostly in drowsy state with brief arousals. Resting background rhythm consisted of 9-10 Hz alpha activity measuring 15-40 microvolts in amplitude, which was symmetric bilaterally. Intermittent generalized right greater than left frontal and temporal delta activity was noted. No epileptiform abnormalities were seen. No sleep was achieved. Hyperventilation could not be performed. Photic stimulation remained unremarkable. EKG revealed normal sinus rhythm. No focal, lateralizing or epileptiform abnormalities were seen. Excessive beta activity was noted, likely due to medication effect. CONCLUSION: This EEG in an intubated patient on sedation is abnormal due to presence of generalized, although slightly greater in the right temporal and frontal head region, slowing consistent with nonspecific diffuse cerebral dysfunction such as seen in encephalopathy due to multiple potential causes, including postictal state, medication effect, toxic, metabolic, multifactorial structural brain abnormalities. No epileptiform abnormalities were seen. Clinical correlation is recommended.
[2018-05-31] MEDS: NICOTINE 21MG/24HR 1 EA TRANSDERMAL TD SCH (18:46)
[2018-05-31] MEDS: levETIRAcetam 250MG TABLET (KEPPRA) PO SCH (20:08)
--- NOTE | 2018-05-31 22:35 | CCN ---
DATE: 05/31/2018 The patient was seen this morning during bedside rounds. The patient did have an episode of agitation yesterday afternoon where he had somehow dislodged his orogastric (OG) tube. It was placed back, and he was increased on his propofol for sedation. He was started on Precedex yesterday evening in an attempt to wean down the propofol for sedation. He was able to be weaned down from propofol. The patient had a sedation vacation this morning and appeared to be responsive and following commands appropriately. The patient, therefore, had a weaning trial done and was able to be successfully extubated this morning. He did not have any fevers overnight. No seizure activity noted. Vital Signs: Temperature 99.3, pulse 72, respirations 22, blood pressure 130/57, oxygen saturation 100% on the ventilator. Intake was 4.5 liters, output was 3.1 liters, net positive 1.3 liters. General: The patient is well nourished, well developed. He is intubated and sedated. He is following commands appropriately, is mildly agitated but redirectable. HEENT: Normocephalic, atraumatic. Pupils are reactive. Neck is supple. Trachea is midline. No palpable adenopathy. Cardiovascular: Regular rate and rhythm. Normal S1, S2. No murmurs appreciated. Pulmonary: Coarse ventilated breath sounds. There are some crackles at the right base with no wheezes or rhonchi. Abdomen is soft, nontender and nondistended. No hepatosplenomegaly palpated. Bowel sounds are present. Extremities: There is no lower extremity edema noted bilaterally. LABORATORY: WBC 12.1, hemoglobin 12.9, platelets 204. Chemistry: Sodium 146, potassium 4.1, chloride 119, bicarbonate 21, BUN 13, creatinine 1.22, glucose 111. CPK 1587, procalcitonin 0.36. Chest x-ray This morning showed endotracheal (ET) tube in good position. There is a new right lower lobe atelectasis versus infiltrate. ASSESSMENT AND PLAN: The patient is a 37-year-old male with a past medical history of seizures and multiple sclerosis, who is noncompliant with his home medications and presented with witnessed seizures. He was noted to be extremely combative in the emergency department (ED), requiring physical restraints as well as being chemically restrained, and he was, therefore, intubated and sedated. The patient did have leukocytosis initially, possibly reactive. He has not had any fevers. His chest x-ray this morning does show a right lower lobe atelectasis versus infiltrate, possibly secondary to aspiration as he did have some vomiting prior to his presentation in the ED. Patient also with increasing CPK and acute kidney injury (RUBÉN), likely in the setting of rhabdomyolysis from his seizures. NEUROLOGY: History of seizures and multiple sclerosis, noncompliant with medications, presented with acute seizures and agitation with altered mental status. His urine toxicology (u tox) was positive for cannabis and benzodiazepines only. His alcohol level was negative. The patient was weaned down on propofol with using Precedex for sedation. He was responsive and following commands with propofol being on hold. He was, therefore, successfully extubated today. Continue with Keppra for his seizures The patient will be having any EEG today. Will follow up the results and appreciate neurology recommendations. Continue with seizure prophylaxis. CARDIOVASCULAR: Patient with elevated CPK, likely in the setting of his acute seizure with rhabdomyolysis. He was started on normal saline as well as D5W fluids. Will continue to monitor his CPK. His lactic acid had trended down. PULMONARY: Patient was intubated for airway protection after receiving medications for sedation. He was noted to have a new right lower lobe infiltrate/atelectasis, possibly in the setting of aspiration with his seizures. Will start antibiotics with Augmentin and continue to monitor his fever curve. His procalcitonin was mildly elevated, possibly secondary to an aspiration pneumonia. The patient was successfully extubated today. He was saturating well later on on room air. INFECTIOUS DISEASE: Patient with leukocytosis. Had not had any fevers. Chest x-ray did show a new opacity consistent with possible aspiration pneumonia. Will followup his blood cultures and start the patient on Augmentin for pneumonia. RENAL: Patient with RUBÉN, likely with rhabdomyolysis. He is also noted to have some mild hyperchloremia from his IV fluids. Will change his fluids to half normal saline (NS) and decrease the rate slightly. His CPK is trending down, and his creatinine is improving. GASTROINTESTINAL (GI): Patient is extubated now. OG tube is removed. Will advance his diet as tolerated. Deep vein thrombosis (DVT) prophylaxis: Lovenox. FULL CODE. Total critical care time spent not including any procedures: Approximately 50 minutes. MTDD
[2018-06-01 00:45] VITALS: BP 133/71
[2018-06-01] MEDS: NS 0.45% 1,000 ML IV SCH ×2 (00:55→06:12)
[2018-06-01 04:00] VITALS: BP 135/73
[2018-06-01 06:30] LABS: BASO # 0.1 10^3/uL (0.0-0.2); BASO % 0.4 % (0.0-1.0); EOS # 0.1 10^3/uL (0.0-0.50); EOS % 0.5 % (0.0-3.0); HEMATOCRIT 39.4 % (42.0-52.0); HEMOGLOBIN 12.9 g/dl (13.5-17.5); LYMPH # 2.9 10^3/uL (1.5-4.5); LYMPH % 25.5 % (24.0-44.0); MEAN CORPUSCULAR HEMOGLOBIN 29.6 pg (27.0-33.0); MEAN CORPUSCULAR HGB CONC 32.7 g/dl (32.0-36.5); MEAN CORPUSCULAR VOLUME 90.4 fl (80.0-96.0); MONO # 0.9 10^3/uL (0.0-0.8); MONO % 7.7 % (0.0-5.0); NEUTROPHILS # 7.4 10^3/uL (1.8-7.7); NEUTROPHILS % 65.6 % (36.0-66.0); PLATELET COUNT, AUTOMATED 211 10^3/uL (150-450); RED BLOOD COUNT 4.36 10^6/uL (4.30-6.10); WHITE BLOOD COUNT 11.3 10^3/uL (4.0-10.0)
[2018-06-01 06:58] LABS: BLOOD UREA NITROGEN 6 MG/DL (7-18); CALCIUM LEVEL 8.3 MG/DL (8.5-10.1); CARBON DIOXIDE LEVEL 23 MEQ/L (21-32); CHLORIDE LEVEL 116 MEQ/L (98-107); CREATININE FOR GFR 0.95 MG/DL (0.70-1.30); GLOMERULAR FILTRATION RATE > 60.0 (>60); GLUCOSE, FASTING 89 MG/DL (70-100); POTASSIUM SERUM 3.2 MEQ/L (3.5-5.1); SODIUM LEVEL 145 MEQ/L (136-145)
[2018-06-01] MEDS: ENOXAPARIN 40 MG/0.4 ML SYRINGE (J1650) SC SCH (08:15)
[2018-06-01] MEDS: levETIRAcetam 250MG TABLET (KEPPRA) PO SCH (08:15)
[2018-06-01] MEDS: NICOTINE 21MG/24HR 1 EA TRANSDERMAL TD SCH (08:15)
[2018-06-01] MEDS: AUGMENTIN 875 MG TAB PO SCH (08:16)
[2018-06-01 10:00] VITALS: BP 146/85
[2018-06-01] MEDS ORDERED: POTASSIUM CHLORIDE 10 MEQ SR TABLET PO ONE (10:00)
[2018-06-01 14:00] VITALS: BP 140/82
[2018-06-01] MEDS ORDERED: AMOX875T2 PO (14:43)
--- NOTE | 2018-06-01 15:00 | DS.PDOC ---
Discharge Summary General Date of Admission May 30, 2018 at 06:10 Date of Discharge June 01, 2018 at 3:ooPM Attending Physician: MERY SMITH MD Specialist/Consultants Involve: OLGA LIDIA GROVES MD Discharge Summary PROCEDURES PERFORMED DURING STAY: EEG- CONCLUSION: This EEG in an intubated patient on sedation is abnormal due to presence of generalized, although slightly greater in the right temporal and frontal head region, slowing consistent with nonspecific diffuse cerebral dysfunction such as seen in encephalopathy due to multiple potential causes, including postictal state, medication effect, toxic, metabolic, multifactorial structural brain abnormalities. No epileptiform abnormalities were seen. Clinical correlation is recommended. Head CT- FINDINGS: Brain: Normal. No hemorrhage. No significant white matter disease. No edema. Ventricles: Normal. No ventriculomegaly. Bones/joints: Unremarkable. No acute fracture. Sinuses: Visualized sinuses are unremarkable. No acute sinusitis. Mastoid air cells: Visualized mastoid air cells are unremarkable. No mastoid effusion. Soft tissues: Unremarkable. IMPRESSION: No acute intracranial abnormality. ADMITTING DIAGNOSES: 1. Seizure DISCHARGE DIAGNOSES: Seizure disorder Multiple Sclerosis Agitation COMPLICATIONS/CHIEF COMPLAINT: Seizure. HOSPITAL COURSE: Patient is a 37-year-old male with past medical history of multiple sclerosis and seizure disorder noncompliant brought into the ER with witnessed seizure. Reportedly had 5 witnessed seizures at home was given some Versed in the ER and later became very combative with subsequent intubation and admitted under ICU care. Patient was extubated 05/31/2018 and now doing very well. He is up walking around denying any complaints at all and requesting to go home. He was evaluated by neurology and underwent EEG with no epileptiform abnormalities seen. Discussed with neurology, will discharge patient on home medication as well as continue Keppra 1500 by mouth twice a day. He was also found to have a new infiltrate concerning for aspiration pneumonia and was started on Augmentin, to complete course as outpatient. Ideally, would like to have patient sent to Dr. Kessler right away post discharge. However, unable to get patient in any sooner than July 04. Patient to follow-up with Dr. Santacruz, his established neurologist as soon as possible post discharge. DISCHARGE MEDICATIONS: Please see below. ALLERGIES: Please see below. PHYSICAL EXAMINATION ON DISCHARGE: General: No acute distress, Alert Eyes: Normal sclera, EOMI, RODRICK HENT: Atraumatic, neck supple, moist mucous membranes Cardiovascular: Normal rate, normal rhythm. No murmurs appreciated. Pulmonary: Clear to auscultation b/l, no wheezing GI: Soft, nontender, nondistended Skin: Warm and dry Neuro: CN grossly intact. No focal deficits. Strengths equal b/l. Psych: oriented x 3 LABORATORY DATA: Please see below. IMAGING: Head CT- FINDINGS: Brain: Normal. No hemorrhage. No significant white matter disease. No edema. Ventricles: Normal. No ventriculomegaly. Bones/joints: Unremarkable. No acute fracture. Sinuses: Visualized sinuses are unremarkable. No acute sinusitis. Mastoid air cells: Visualized mastoid air cells are unremarkable. No mastoid effusion. Soft tissues: Unremarkable. IMPRESSION: No acute intracranial abnormality. ACTIVITY: [As tolerated]. DIET: Regular diet DISCHARGE PLAN: Complete course of Augmentin for PNA (suspected aspiration). f/u with Dr. Santacruz neurology as soon as possible. To get video EEG. DISPOSITION: Home DISCHARGE INSTRUCTIONS: 1. Complete augmentin 5 more days 2. F/u neurology and PMD ITEMS TO FOLLOWUP ON ON OUTPATIENT: 1. None DISCHARGE CONDITION: [Stable]. TIME SPENT ON DISCHARGE: Greater than 40 minutes. Vital Signs/I&Os Vital Signs Date Time Temp Pulse Resp B/P (MAP) Pulse Ox O2 Delivery O2 Flow Rate FiO2 06/01/18 10:00 97.2 87 18 146/85 (105) 98 05/31/18 10:00 5.0 28 05/31/18 09:00 Aerosol Mask I&O- Last 24 Hours up to 6 AM 06/01/18 06:00 Intake Total 6609 ml Output Total 3025 ml Balance 3584 ml Laboratory Data Labs 24H Laboratory Tests 2 06/01/18 05:37: Immature Granulocyte % (Auto) 0.3, White Blood Count 11.3H, Red Blood Count 4.36, Hemoglobin 12.9L, Hematocrit 39.4L, Mean Corpuscular Volume 90.4, Mean Corpuscular Hemoglobin 29.6, Mean Corpuscular Hemoglobin Concent 32.7, Red Cell Distribution Width 13.2, Platelet Count 211, Neutrophils (%) (Auto) 65.6, Lymphocytes (%) (Auto) 25.5, Monocytes (%) (Auto) 7.7H, Eosinophils (%) (Auto) 0.5, Basophils (%) (Auto) 0.4, Neutrophils # (Auto) 7.4, Lymphocytes # (Auto) 2.9, Monocytes # (Auto) 0.9H, Eosinophils # (Auto) 0.1, Basophils # (Auto) 0.1, Nucleated Red Blood Cells % (auto) 0.0, Anion Gap 6L, Glomerular Filtration Rate > 60.0, Blood Urea Nitrogen 6#L, Creatinine 0.95, Sodium Level 145, Potassium Level 3.2#L, Chloride Level 116H, Carbon Dioxide Level 23, Calcium Level 8.3L CBC/BMP Laboratory Tests 06/01/18 05:37 Red Blood Count 4.36, Mean Corpuscular Volume 90.4, Mean Corpuscular Hemoglobin 29.6, Mean Corpuscular Hemoglobin Concent 32.7, Red Cell Distribution Width 13.2, Neutrophils (%) (Auto) 65.6, Lymphocytes (%) (Auto) 25.5, Monocytes (%) (Auto) 7.7 H, Eosinophils (%) (Auto) 0.5, Basophils (%) (Auto) 0.4, Neutrophils # (Auto) 7.4, Lymphocytes # (Auto) 2.9, Monocytes # (Auto) 0.9 H, Eosinophils # (Auto) 0.1, Basophils # (Auto) 0.1, Calcium Level 8.3 L Microbiology Microbiology 05/30/18 Blood Culture - Preliminary, Resulted No Growth after 48 hours. All Specime... 05/30/18 Blood Culture - Preliminary, Resulted No Growth after 48 hours. All Specime... Discharge Medications Scheduled Amoxicillin/Potassium Clav (Amox-Clav 875-125 mg Tablet) 1 Each Tablet, 875 MG PO BID Glatiramer Acetate (Glatiramer Acetate) 40 Mg/Ml Inj, 40 MG SC 3XW, (Reported) PT FAMILY STATES PT WAS HAVING SITE REACTIONS AND WAS MAKING HIM FEEL WORSE. PT HAS NOT HAD IN 1.5 WEEKS Levetiracetam (Keppra) 1,000 Mg Tab, 1,500 MG PO BID, (Reported) Allergies Coded Allergies: No Known Allergies (Verified , 08/28/02) MERY SMITH MD Jun 01, 2018 15:00
== END 2018-06-01 16:10 | disposition home or self-care (01) | DRG 53 ==
LOC: M ED 00:25 → M ED INP 06:10 → M ICU 07:00 → M MS5PR 05-31 20:47
PROVIDERS: ADMIT Student in an Organized Health Care Education/Training Program; ATTEND Student in an Organized Health Care Education/Training Program
PROC: 0BH17EZ Insertion of Endotracheal Airway into Trachea, Via Natural or Artificial Opening (ICD-10-PCS; principal; 2018-05-30)
PROC: 5A1945Z Respiratory Ventilation, 24-96 Consecutive Hours (ICD-10-PCS; 2018-05-30)
DX: G40.401 Other generalized epilepsy and epileptic syndromes, not intractable, with status epilepticus (principal); J69.0 Pneumonitis due to inhalation of food and vomit; N17.9 Acute kidney failure, unspecified; E87.2 Acidosis; G35 Multiple sclerosis; M62.82 Rhabdomyolysis; F17.200 Nicotine dependence, unspecified, uncomplicated; R41.82 Altered mental status, unspecified; R32 Unspecified urinary incontinence; Z87.81 Personal history of (healed) traumatic fracture; Z89.021 Acquired absence of right finger(s); Z91.14 Patient's other noncompliance with medication regimen; Z79.899 Other long term (current) drug therapy

== ENCOUNTER → 2019-01-17 | Outpatient (REF) | payer OTHER ==
[~2019-01-17] MED LIST changes: +AMOX875T2 PO; +GLAT40IN SC; +METO10TA2 PO; +PHARMACY COMMENT
[2019-01-17 14:07] LABS: BASO # 0.1 10^3/uL (0.0-0.2); EOS % 0.3 % (0.0-3.0); HEMATOCRIT 46.4 % (42.0-52.0); HEMOGLOBIN 15.1 g/dl (13.5-17.5); LYMPH % 33.3 % (24.0-44.0); MEAN CORPUSCULAR HEMOGLOBIN 29.5 pg (27.0-33.0); MEAN CORPUSCULAR HGB CONC 32.5 g/dl (32.0-36.5); MEAN CORPUSCULAR VOLUME 90.6 fl (80.0-96.0); MONO # 0.5 10^3/uL (0.0-0.8); MONO % 8.4 % (0.0-5.0); NEUTROPHILS # 3.4 10^3/uL (1.5-8.5); NEUTROPHILS % 56.8 % (36.0-66.0); PLATELET COUNT, AUTOMATED 261 10^3/uL (150-450); RED BLOOD COUNT 5.12 10^6/uL (4.30-6.10)
[2019-01-17 14:28] LABS: ALBUMIN 4.1 GM/DL (3.2-5.2); ALT/SGPT 24 U/L (12-78); BILIRUBIN,TOTAL 0.5 MG/DL (0.2-1.0); BLOOD UREA NITROGEN 9 MG/DL (7-18); CALCIUM LEVEL 9.1 MG/DL (8.5-10.1); CARBON DIOXIDE LEVEL 28 MEQ/L (21-32); CHLORIDE LEVEL 109 MEQ/L (98-107); CREATININE FOR GFR 0.95 MG/DL (0.70-1.30); GLOMERULAR FILTRATION RATE > 60.0 (>60); GLUCOSE, FASTING 86 MG/DL (70-100); POTASSIUM SERUM 4.5 MEQ/L (3.5-5.1); SODIUM LEVEL 141 MEQ/L (136-145); TOTAL PROTEIN 7.4 GM/DL (6.4-8.2)
== END ==
LOC: M LABNEURO 11:44
PROVIDERS: ATTEND Psychiatry & Neurology Neurology
DX: G35 Multiple sclerosis (principal)

== ENCOUNTER → 2019-04-17 | Outpatient (REF) | payer OTHER ==
[2019-04-17 13:17] LABS: BASO # 0.1 10^3/uL (0.0-0.2); BASO % 0.9 % (0.0-1.0); EOS # 0.1 10^3/uL (0.0-0.5); EOS % 0.7 % (0.0-3.0); HEMATOCRIT 47.7 % (42.0-52.0); HEMOGLOBIN 15.4 g/dl (13.5-17.5); LYMPH # 1.8 10^3/uL (1.5-5.0); LYMPH % 26.3 % (24.0-44.0); MEAN CORPUSCULAR HEMOGLOBIN 28.6 pg (27.0-33.0); MEAN CORPUSCULAR HGB CONC 32.3 g/dl (32.0-36.5); MEAN CORPUSCULAR VOLUME 88.7 fl (80.0-96.0); MONO # 0.6 10^3/uL (0.0-0.8); MONO % 8.1 % (0.0-5.0); NEUTROPHILS # 4.3 10^3/uL (1.5-8.5); NEUTROPHILS % 63.7 % (36.0-66.0); PLATELET COUNT, AUTOMATED 257 10^3/uL (150-450); RED BLOOD COUNT 5.38 10^6/uL (4.30-6.10); WHITE BLOOD COUNT 6.8 10^3/uL (4.0-10.0)
== END ==
LOC: M LABNEURO 10:28
PROVIDERS: ATTEND Physician Assistant Medical
DX: G35 Multiple sclerosis (principal)

== ENCOUNTER → 2019-04-17 | Outpatient (REF) | payer OTHER ==
[2019-04-17 13:17] LABS: BASO # 0.1 10^3/uL (0.0-0.2); BASO % 0.9 % (0.0-1.0); EOS % 0.4 % (0.0-3.0); HEMATOCRIT 47.3 % (42.0-52.0); HEMOGLOBIN 15.5 g/dl (13.5-17.5); LYMPH # 1.8 10^3/uL (1.5-5.0); LYMPH % 26.3 % (24.0-44.0); MEAN CORPUSCULAR HGB CONC 32.8 g/dl (32.0-36.5); MEAN CORPUSCULAR VOLUME 88.4 fl (80.0-96.0); MONO # 0.6 10^3/uL (0.0-0.8); MONO % 8.4 % (0.0-5.0); NEUTROPHILS # 4.3 10^3/uL (1.5-8.5); NEUTROPHILS % 63.7 % (36.0-66.0); PLATELET COUNT, AUTOMATED 260 10^3/uL (150-450); RED BLOOD COUNT 5.35 10^6/uL (4.30-6.10); WHITE BLOOD COUNT 6.7 10^3/uL (4.0-10.0)
[2019-04-17 14:04] LABS: ALBUMIN 4.2 GM/DL (3.2-5.2); ALT/SGPT 18 U/L (12-78); BILIRUBIN,TOTAL 0.5 MG/DL (0.2-1.0); BLOOD UREA NITROGEN 12 MG/DL (7-18); CALCIUM LEVEL 9.6 MG/DL (8.5-10.1); CARBON DIOXIDE LEVEL 28 MEQ/L (21-32); CHLORIDE LEVEL 105 MEQ/L (98-107); CREATININE FOR GFR 0.96 MG/DL (0.70-1.30); GLOMERULAR FILTRATION RATE > 60.0 (>60); GLUCOSE, FASTING 96 MG/DL (70-100); POTASSIUM SERUM 4.3 MEQ/L (3.5-5.1); SODIUM LEVEL 139 MEQ/L (136-145); TOTAL 25(OH) VITAMIN D 59.8 NG/ML (30.0-100.0); TOTAL PROTEIN 7.5 GM/DL (6.4-8.2); VITAMIN B12 LEVEL 1557 PG/ML (247-911)
== END ==
LOC: M LABNEURO 10:24
PROVIDERS: ATTEND Physician Assistant Medical
DX: G40.909 Epilepsy, unspecified, not intractable, without status epilepticus (principal)

== ENCOUNTER 2019-05-05 22:17 | Inpatient (IN) | payer OTHER ==
[~2019-05-05] VITALS: Ht 177.8 cm; Wt 90.4 kg
[2019-05-05] MEDS ORDERED: NS 1,000 ML IV ONE (22:30)
[2019-05-05] MEDS ORDERED: PROPOFOL 1,000 MG/100 ML VIAL As Ordered ONE (22:50)
[2019-05-05] MEDS ORDERED: propofoL 1,000 MG in IV 1 EA IV SCH (23:00)
[2019-05-05] MEDS ORDERED: MIDAZOLAM INJ 5 MG/ML VIAL (J2250) IV ONE (23:15)
[2019-05-05 23:22] LABS: BASO # 0.1 10^3/uL (0.0-0.2); BASO % 0.5 % (0.0-1.0); HEMATOCRIT 48.3 % (42.0-52.0); HEMOGLOBIN 15.9 g/dl (13.5-17.5); LYMPH # 0.9 10^3/uL (1.5-5.0); MEAN CORPUSCULAR HEMOGLOBIN 29.1 pg (27.0-33.0); MEAN CORPUSCULAR HGB CONC 32.9 g/dl (32.0-36.5); MEAN CORPUSCULAR VOLUME 88.3 fl (80.0-96.0); MONO # 1.3 10^3/uL (0.0-0.8); MONO % 5.9 % (0.0-5.0); NEUTROPHILS % 88.8 % (36.0-66.0); PLATELET COUNT, AUTOMATED 288 10^3/uL (150-450); RED BLOOD COUNT 5.47 10^6/uL (4.30-6.10); WHITE BLOOD COUNT 21.4 10^3/uL (4.0-10.0)
[2019-05-05] MEDS ORDERED: MIDAZOLAM HCL 50 MG in D5W 40 ML IV SCH (23:40)
[2019-05-05] MEDS ORDERED: ETOMIDATE INJ 20MG/10ML VIAL IV ONE (23:45)
[2019-05-05] MEDS ORDERED: SUCCINYLCHOLINE INJ 200 MG/10 ML VIAL (J0330) IV ONE (23:45)
[2019-05-06] VITALS (21 sets, daily range): BP systolic 124–163; BP diastolic 70–93; O2SAT 98–100
[2019-05-06] MEDS ORDERED: NS 1,700 ML in IV 1 EA IV ONE ×2
[2019-05-06] MEDS ORDERED: PIPERACILLIN/TAZOBACTAM SOD 4.5 GM in D5W MINI-BAG PLUS 50 ML IV ONE ×2
[2019-05-06 00:04] LABS: AMPHETAMINES LEVEL URINE NEGATIVE (NEGATIVE); BARBITURATES URINE NEGATIVE (NEGATIVE); BENZODIAZEPINES URINE POSITIVE (NEGATIVE); CANNABINOIDS URINE POSITIVE (NEGATIVE); COCAINE METABOLITE URINE NEGATIVE (NEGATIVE); METHADONE URINE NEGATIVE (NEGATIVE); OPIATES URINE NEGATIVE (NEGATIVE); PHENCYCLIDINE URINE NEGATIVE (NEGATIVE)
[2019-05-06 00:06] LABS: ALBUMIN 4.5 GM/DL (3.2-5.2); ALT/SGPT 32 U/L (12-78); BILIRUBIN,DIRECT < 0.1 MG/DL (0.0-0.2); BILIRUBIN,TOTAL 0.4 MG/DL (0.2-1.0); BLOOD UREA NITROGEN 19 MG/DL (7-18); CARBON DIOXIDE LEVEL 19 MEQ/L (21-32); CHLORIDE LEVEL 106 MEQ/L (98-107); CK-MB VALUE MASS 2.8 NG/ML (<3.6); CPK CREATINE PHOSPHOKINASE 393 U/L (39-308); CREATININE FOR GFR 1.46 MG/DL (0.70-1.30); ETHYL ALCOHOL (ETHANOL) < 0.003 % (0.000-0.010); GLOMERULAR FILTRATION RATE 57.8 (>60); GLUCOSE, FASTING 122 MG/DL (70-100); MB/CK RELATIVE INDEX 0.71 (< OR =4); POTASSIUM SERUM 4.4 MEQ/L (3.5-5.1); SODIUM LEVEL 138 MEQ/L (136-145); TOTAL PROTEIN 7.9 GM/DL (6.4-8.2); TROPONIN I < 0.02 NG/ML (< 0.10)
[2019-05-06] MEDS ORDERED: VITA200028 PO (00:37)
[2019-05-06] MEDS ORDERED: VIMP150T PO (00:37)
[2019-05-06] MEDS ORDERED: KEPP10002 PO (00:37)
[2019-05-06] MEDS ORDERED: AUBA14TA PO (00:37)
[2019-05-06] MEDS ORDERED: MIDAZOLAM HCL 100 MG in D5W 80 ML IV SCH (01:07)
[2019-05-06] MEDS ORDERED: REFRIGERATOR IV KEYS XX PRN (01:15)
[2019-05-06] MEDS ORDERED: MIDAZOLAM INJ 2 MG/2 ML VIAL (J2250) IV PRN (01:15)
[2019-05-06] MEDS ORDERED: METAL LOCK LOOP XX ONE (02:05)
[2019-05-06] MEDS: propofoL 1,000 MG in IV 1 EA IV SCH ×3 (02:08→08:52)
[2019-05-06] MEDS: IPRATROPIUM 0.5MG/ALBUTEROL 2.5MG INH SOL UD 3ML (DUONEB)(J7620) NEB SCH ×5 (02:34→19:09)
[2019-05-06] MEDS: D5W/0.45% SODIUM CHLORIDE 1,000 ML IV SCH ×2 (02:58→08:56)
[2019-05-06 03:58] LABS: BASO % 0.2 % (0.0-1.0); HEMATOCRIT 41.9 % (42.0-52.0); HEMOGLOBIN 14.1 g/dl (13.5-17.5); LYMPH # 1.1 10^3/uL (1.5-5.0); LYMPH % 7.5 % (24.0-44.0); MEAN CORPUSCULAR HEMOGLOBIN 29.6 pg (27.0-33.0); MEAN CORPUSCULAR HGB CONC 33.7 g/dl (32.0-36.5); MONO # 1.4 10^3/uL (0.0-0.8); MONO % 9.1 % (0.0-5.0); NEUTROPHILS # 12.3 10^3/uL (1.5-8.5); NEUTROPHILS % 82.8 % (36.0-66.0); PLATELET COUNT, AUTOMATED 228 10^3/uL (150-450); RED BLOOD COUNT 4.76 10^6/uL (4.30-6.10); WHITE BLOOD COUNT 14.9 10^3/uL (4.0-10.0)
[2019-05-06 04:31] LABS: ALBUMIN 3.7 GM/DL (3.2-5.2); ALT/SGPT 30 U/L (12-78); BILIRUBIN,TOTAL 0.9 MG/DL (0.2-1.0); BLOOD UREA NITROGEN 21 MG/DL (7-18); CALCIUM LEVEL 8.4 MG/DL (8.5-10.1); CARBON DIOXIDE LEVEL 22 MEQ/L (21-32); CHLORIDE LEVEL 111 MEQ/L (98-107); CHOLESTEROL LEVEL 178 MG/DL (< 200); CPK CREATINE PHOSPHOKINASE 531 U/L (39-308); CREATININE FOR GFR 1.36 MG/DL (0.70-1.30); GLOMERULAR FILTRATION RATE > 60.0 (>60); GLUCOSE, FASTING 119 MG/DL (70-100); LDH LACTATE DEHYDROGENASE 263 U/L (87-241); POTASSIUM SERUM 3.9 MEQ/L (3.5-5.1); SODIUM LEVEL 141 MEQ/L (136-145); TOTAL PROTEIN 6.5 GM/DL (6.4-8.2); TRIGLYCERIDES LEVEL 143 MG/DL (<150)
--- NOTE | 2019-05-06 07:58 | ECGEPIP ---
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
[2019-05-06] MEDS: levETIRAcetam 250MG TABLET (KEPPRA) PO SCH ×2 (08:53→21:04)
[2019-05-06] MEDS: HEPARIN SOD (PORCINE) 5000 UNITS/ML VIAL (J1644 PER 1000UNITS) SC SCH ×3 (08:56→22:15)
[2019-05-06] MEDS: LACOSAMIDE 50 MG TAB (VIMPAT) PO SCH ×2 (08:56→21:04)
[2019-05-06] MEDS ORDERED: CHLORHEXIDINE GLUCONATE 0.12 % 15ML UDC (PERIDEX ORAL RINSE) MT SCH (09:00)
[2019-05-06] MEDS ORDERED: levETIRAcetam 250MG TABLET (KEPPRA) PO SCH (09:00)
[2019-05-06] MEDS ORDERED: LACOSAMIDE 50 MG TAB (VIMPAT) PO SCH ×2 (09:00)
[2019-05-06] MEDS ORDERED: ETOMIDATE INJ 20MG/10ML VIAL ONE (09:17)
[2019-05-06] MEDS ORDERED: SUCCINYLCHOLINE 100 MG/5 ML SYRINGE (J0330) ONE (09:17)
--- NOTE | 2019-05-06 10:00 | HPE ---
DATE OF ADMISSION: 05/06/2019 START TIME: 39 STOP TIME: 128 I was called to the emergency room (ER) to attend Sergei Hernández. The patient admitted, examined and the chart reviewed. I spoke at length with his significant other at the bedside. In essence, this is a 38-year-old gentleman with a longstanding history of seizures. Apparently, his last seizure was about 7 months ago. He follows normally with Dr. Slater here in [facility], but also sees a doctor in [place]. He was recently here locally, but is due for his [place] appointment in the next week or so. Most recent drug level done within the last week or so of his Keppra and Vimpat were therapeutic and his significant other states complete compliance. Apparently, he has felt the last several days as though he had a seizure coming on. Reportedly, he has been told he can take an extra dose of Keppra before that, but didn't feel so compelled. He was brought in tonight after several witnessed seizures. He was quite postictal here in the ER and not felt to be able to protect his own airway and therefore was intubated. First blood gas showed a pH of 7.173, pCO2 of 33 and pO2 of 86. Chest x-ray post intubation shows the tube in good position, no infiltrates. The remainder of his lab work shows a sodium of 138, potassium of 4.4, chloride 106, CO2 19, BUN 19, creatinine 1.46. Lactic acid 8.4. CK of 393. White blood cell count 21.4, hemoglobin 15.9 and platelet count 288,000 with 80% segs and 0 bands. MEDICATIONS AN OUTPATIENT: - Keppra 1000 mg twice a day - Vimpat 150 mg twice a day - He is also supposed to take Teriflunomide 14 mg tablets daily PAST MEDICAL HISTORY: Significant for his known seizures. 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 FAMILY HISTORY: Mother with history of hypertension and heart disease. SOCIAL HISTORY: Known smoking history. History of cannabis use. REVIEW OF SYSTEMS: Currently unobtainable. PHYSICAL EXAMINATION: Currently reveals a gentleman who appears his stated age intubated here in the ER. Blood pressure initially 160/80, as high as 200/100 when agitated, most recently 134/76. Heart rate between 75 and 100 with a sinus mechanism. He does over breathe the ventilator. HEENT: Shows the oral endotracheal tube. Pupils do react. Trachea is in the midline. Membranes are moist. Chest is clear to both auscultation and percussion. No significant focal adventitious breath sounds identified. Tactile fremitus palpable throughout. Cardiac Exam: Regular without gallop. Peripheral pulses palpable. No obvious edema. Abdomen soft with active bowel sounds. There is no convincing organomegaly or masses. Extremities shows no obvious cyanosis or clubbing. Neurologically, moves all extremities, somewhat agitated. Psychiatric Exam: Currently intermittently agitated. LABORATORY DATA: Other laboratories show a repeat blood gas after intubation that shows a pH of 7.339, pCO2 of 41.5, pO2 of 159. Toxicology screen positive for benzodiazepines and cannabinoids. He was given Versed in the ambulance. IMPRESSION: 1. Seizures, acute on chronic. 2. History of tobacco and cannabis use. RECOMMENDATIONS: At this point, he is on Versed and propofol to control his seizures. He has shown much improvement currently in his mental status. We will continue. We have continued his Keppra and Vimpat. He was given extra Keppra and will see what neurology wants to do with that as they have graciously agreed to see him in the morning. Vimpat level is pending and will change the dose to match his outpatient dose until that level is back. There is no evidence of active infection. He has had no recent fevers, chills or sweats. His significant other denies any other acute illness, just that he felt as though he had a seizure coming on as he gets a "funny feeling for a day or so" beforehand and said he had this happen the last 48 hours prior to admission. He denied any headaches or changes in his habits. At this point, ulcer and deep vein thrombosis (DVT) prophylaxis is in place. We will assure adequate IV hydration. I have spoken with Dr. Cruz from neurology who has agreed to see him in the morning. For now, we will continue with mechanical ventilation, propofol and Versed for seizures. My hopes is that when he is more awake and cooperative we can proceed with endotracheal extubation. If that does not happen in a timely fashion, then we will address his nutritional needs via enteral feeds with an orogastric (OG) tube. OG tube has been placed to give him enteral medications. We will proceed as outlined above. Overall, he is critically ill. I left the bedside at 0029 hours. 49 minutes of critical care delivered at the bedside, not including procedures.
--- NOTE | 2019-05-06 12:01 | IPNPDOC ---
Text Note Date of Service The patient was seen on 05/06/19. NOTE Subjective: Patient is a 38-year-old female with a PMHx of MS and Seizure disorder (last seizure 7 months prior, follows w/ Dr. Slater / [facility]) who presented to the ER after experiencing several seizures at home. In the ER patient was intubated for airway protection. Patient's reported that he was experiencing a premonition of a new seizure. Noted twitching, tunnel vision and foggy thoughts. He was advised to take an extra dose of Keppra, but continued with his current dosing. Patient was admitted to the intensive care unit care of materials planning manager. he was continued with his home dosing of Keppra and Vimpat. Neurology was called on consultation This morning patient was able to follow commands and he was successfully extubated today, 05/06/2019. Patient was seen and examined at the bedside. Currently patient was seen being cleaned by his . Denied any nausea, vomiting, chest pain, shortness of breath or palpitations. Objective: Vitals (See below) General: Lying in bed, no acute distress, comfortable, Awake / Alert HEENT: NC, AT CVS: RRR, +S1S2 Lungs: Fair air entry b/l, no appreciable wheezing, rhonchi or rales Abdomen: Soft, ND, NT Extremities: - Edema, - Calf tenderness Assessment and plan: Recurrent seizures - possibly 2/2 stress, less likely 2/2 medication non- compliance - Patient and his indicate that recently he's been experiencing a lot of stress - No focal deficits noted on exam - Keppra / Vimpat levels pending - c/w Keppra and Vimpat - Neurology on consultation; awaiting their input Hx of MS - Will continue with home medications once they are brought in - Neurology on consultation; awaiting their input s/p Ventilator dependent respiratory failure - 2/2 airway protection - Can clear his own secretions and speak in full sentences - Currently saturating well on nasal cannula oxygen Leukocytosis - likely 2/2 reactive etiology, less likely 2/2 infective - No signs of infection on ROS - Hemodynamically stable and afebrile - WBC tending down - Will hold off on antibiotics s/p Lactic acidosis RUBÉN - likely 2/2 dehydration - Baseline Cr < 1.0 - Will avoid nephrotoxic medications - Will c/w IV fluid hydration DVT prophylaxis - c/w Heparin Disposition: - Will monitor in ICU for next 24 hours - Suspect downgrade to med/surg after that - Awaiting neurology input VSAlan, I+O VSAlan, I+O Laboratory Tests 05/05/19 23:15 05/06/19 03:50 Vital Signs Date Time Temp Pulse Resp B/P (MAP) Pulse Ox O2 Delivery O2 Flow Rate FiO2 05/06/19 08:52 82 19 140/73 98 Ventilator 28 05/06/19 04:00 97.9 I&O- Last 24 Hours up to 6 AM 05/06/19 06:00 Intake Total 2705 ml Output Total 660 ml Balance 2045 ml COOPER SEPULVEDA MD May 06, 2019 12:01
--- NOTE | 2019-05-06 12:22 | REP ---
REASON: Endotracheal tube placement. COMPARISON: 05/31/2018, also portable. The technique utilized in obtaining the radiograph has magnified the cardiac silhouette and accentuated the interstitial markings. The tip of the endotracheal tube is at the lower margin of the aortic knob, in satisfactory position. The lung mitchell are clear, and the cardiac silhouette is magnified by technique. There is no gross cardiomegaly. There is no change in the osseous structures. IMPRESSION: No acute cardiopulmonary disease. Findings as described above. Unreviewed
--- NOTE | 2019-05-06 12:46 | CCN ---
DATE: 05/06/2019 START TIME: 844 STOP TIME: 918 I again attended Sergei Hernández here in the intensive care unit (ICU). The patient has been examined and chart reviewed. He has had no further seizures. Maximum temperature (t-max) overnight 97.9, blood pressure 120 to 140 systolic, respiratory rate 14 to 22 and unlabored. Input and output since admission: 2705 in with 660 out. Repeat white blood cell count done at 0350 shows it to be 14.9, hemoglobin 14.1, platelet count 228,000, 82% segmented neutrophils, no bands. Sodium 141, potassium 3.9, chloride 111, CO2 of 22, BUN 21, creatinine 1.36. Lactic acid cleared now at 1.3. CK mildly elevated at 531, consistent with the seizures. Keppra and Vimpat levels are still pending. No new imaging. PHYSICAL EXAMINATION: We have discontinued his propofol and Versed drip. He is easily arousable. He follows commands. Respiratory status is comfortable. Pupils react. Sclerae clear. Trachea is in the midline. LUNGS: Clear to auscultation and percussion. CARDIAC: Regular with no gallop. Peripheral pulses palpable with no edema. ABDOMEN: Thin and soft. Nontender with normoactive bowel sounds. No hepatosplenomegaly or masses. EXTREMITIES: No cyanosis or clubbing. NEUROLOGIC: Moves all extremities. He is comfortable. He was easily extubated. No stridor. Orogastric tube is discontinued. Discussion with him reveals no recent illnesses. No fevers. No cough. No sinus complaints. No urinary symptoms. He states complete compliance with his medications, as well as with followup with his neurologist. The most pressing problems requiring my immediate presence at the bedside are respiratory failure requiring mechanical ventilatory support, seizures with breakthrough, positive cannabinoids. At this point, he is extubated and feels reasonable at the moment. We await his drug levels. He is to be seen by neurology this morning for recommendations in that regard. I have spoken with Dr. Maura Street from the hospitalist service, who will resume his care now that he is extubated. We will allow him out of bed. He can have a diet as tolerated. I will discontinue his Thomas. Ulcer and deep vein thrombosis (DVT) prophylaxis will be continued. WE will proceed as outlined above. I left the bedside at 0919 hours. 34 minutes of critical care was delivered at the bedside, not including procedures. EULALIO
[2019-05-06] MEDS ORDERED: AUBAGIO 14 MG PO SCH (21:00)
[2019-05-06] MEDS ORDERED: ACETAMINOPHEN 650MG ER TAB (TYLENOL ARTHRITIS) PO PRN (21:15)
[2019-05-07] VITALS: BP 116/67
[2019-05-07] MEDS: IPRATROPIUM 0.5MG/ALBUTEROL 2.5MG INH SOL UD 3ML (DUONEB)(J7620) NEB SCH ×4 (03:18→11:34)
[2019-05-07 04:00] VITALS: BP 131/68
[2019-05-07 05:25] LABS: BASO # 0.1 10^3/uL (0.0-0.2); BASO % 0.7 % (0.0-1.0); EOS # 0.1 10^3/uL (0.0-0.5); EOS % 0.7 % (0.0-3.0); HEMATOCRIT 41.4 % (42.0-52.0); HEMOGLOBIN 13.4 g/dl (13.5-17.5); LYMPH % 33.8 % (24.0-44.0); MEAN CORPUSCULAR HEMOGLOBIN 28.5 pg (27.0-33.0); MEAN CORPUSCULAR HGB CONC 32.4 g/dl (32.0-36.5); MEAN CORPUSCULAR VOLUME 88.1 fl (80.0-96.0); MONO # 0.9 10^3/uL (0.0-0.8); MONO % 9.8 % (0.0-5.0); NEUTROPHILS # 4.8 10^3/uL (1.5-8.5); NEUTROPHILS % 54.8 % (36.0-66.0); PLATELET COUNT, AUTOMATED 215 10^3/uL (150-450); WHITE BLOOD COUNT 8.8 10^3/uL (4.0-10.0)
[2019-05-07 06:00] LABS: ALBUMIN 3.4 GM/DL (3.2-5.2); ALT/SGPT 22 U/L (12-78); BILIRUBIN,TOTAL 0.9 MG/DL (0.2-1.0); BLOOD UREA NITROGEN 9 MG/DL (7-18); CALCIUM LEVEL 8.1 MG/DL (8.5-10.1); CARBON DIOXIDE LEVEL 24 MEQ/L (21-32); CHLORIDE LEVEL 113 MEQ/L (98-107); CHOLESTEROL LEVEL 152 MG/DL (< 200); CPK CREATINE PHOSPHOKINASE 564 U/L (39-308); CREATININE FOR GFR 0.97 MG/DL (0.70-1.30); GLOMERULAR FILTRATION RATE > 60.0 (>60); GLUCOSE, FASTING 119 MG/DL (70-100); LDH LACTATE DEHYDROGENASE 258 U/L (87-241); PHOSPHORUS LEVEL 3.3 MG/DL (2.5-4.9); POTASSIUM SERUM 3.4 MEQ/L (3.5-5.1); SODIUM LEVEL 143 MEQ/L (136-145); TOTAL PROTEIN 6.3 GM/DL (6.4-8.2); TRIGLYCERIDES LEVEL 140 MG/DL (<150)
[2019-05-07] MEDS: HEPARIN SOD (PORCINE) 5000 UNITS/ML VIAL (J1644 PER 1000UNITS) SC SCH (06:00)
[2019-05-07] MEDS ORDERED: POTASSIUM CHLORIDE 10 MEQ SR TABLET PO ONE (06:15)
[2019-05-07 06:16] LABS: ABG HCO3 23.6 MEQ/L (22.0-26.0); ABG O2 SATURATION 98.8 % (95.0-99.0); ABG PARTIAL PRESSURE O2 170.7 mmHg (75.0-100.0); ABG STANDARD HCO3 23.7 MEQ/L (22.0-26.0); ABG TOTAL CO2 24.8 MEQ/L (22.0-29.0)
[2019-05-07 08:00] VITALS: BP 151/64
[2019-05-07] MEDS: LACOSAMIDE 50 MG TAB (VIMPAT) PO SCH (08:15)
[2019-05-07] MEDS: levETIRAcetam 250MG TABLET (KEPPRA) PO SCH (08:15)
--- NOTE | 2019-05-07 11:37 | DS.PDOC ---
Discharge Summary General Date of Admission May 06, 2019 at 01:07 Date of Discharge 05/07/2019 Discharge Summary PROCEDURES PERFORMED DURING STAY: [None]. ADMITTING DIAGNOSES / DISCHARGE DIAGNOSES: Recurrent seizures - possibly 2/2 stress, less likely 2/2 medication non- compliance Hx of MS s/p Ventilator dependent respiratory failure - 2/2 airway protection Leukocytosis - likely 2/2 reactive etiology, less likely 2/2 infective s/p Lactic acidosis RUBÉN - likely 2/2 dehydration DVT prophylaxis COMPLICATIONS/CHIEF COMPLAINT: Resp Failure Requiring Intubation; Seizure. HISTORY OF PRESENT ILLNESS: Patient is a 38-year-old female with a PMHx of MS and Seizure disorder (last seizure 7 months prior, follows w/ Dr. Slater / [facility]) who presented to the ER after experiencing several seizures at home. In the ER patient was intubated for airway protection. Patient's reported that he was experiencing a premonition of a new seizure. Noted twitching, tunnel vision and foggy thoughts. He was advised to take an extra dose of Keppra, but continued with his current dosing. Patient was admitted to the intensive care unit care of communications supervisor. he was continued with his home dosing of Keppra and Vimpat. Neurology was called on consultation. On the morning of 05/05, patient was able to follow commands and he was successfully extubated. HOSPITAL COURSE: Recurrent seizures - possibly 2/2 stress, less likely 2/2 medication non- compliance - Patient and his indicate that recently he's been experiencing a lot of stress - Patient does not appear to been in status epilepticus; patient was intubated with concerns for possible airway protection but was extubated within ~12 hours - Physical without any focal deficits - Keppra / Vimpat levels remain pending - Will continue with current dose of Keppra and Vimpat - Discussed case with Neurology; Dr. Venegas at this time will c/w current dose of medications and will have plans for out-patient follow-up - Will have outpatient follow up with Neurology and PCP within 7 days Hx of MS - c/w home regimen - Neurology on consultation s/p Ventilator dependent respiratory failure - 2/2 airway protection - On room air and saturating well s/p Leukocytosis - likely 2/2 reactive etiology, less likely 2/2 infective - No signs of infection on ROS - Hemodynamically stable and afebrile - WBC normalized - Will hold off on antibiotics s/p Lactic acidosis s/p RUBÉN - likely 2/2 dehydration - Baseline Cr < 1.0 - Will avoid nephrotoxic medications - s/p IV fluid hydration DVT prophylaxis - c/w Heparin DISCHARGE MEDICATIONS: Please see below. ALLERGIES: Please see below. PHYSICAL EXAMINATION ON DISCHARGE: Vitals (See below) General: Lying in bed, no acute distress, comfortable, Awake / Alert, oriented 3 HEENT: NC, AT CVS: +S1S2 Lungs: Fair air entry b/l, auscultation is free of rhonchi, rales or wheezing Abdomen: Soft, non-distended, non-tender Extremities: No evidence of edema , - Calf tenderness LABORATORY DATA: Please see below. ACTIVITY: [As tolerated]. DISCHARGE PLAN: Follow up with PCP and Neurology within 7 days Remain compliant with treatment plan and medications Return to the ER if you experience any problems DISPOSITION: Home DISCHARGE CONDITION: [Stable]. TIME SPENT ON DISCHARGE: 35 minutes Vital Signs/I&Os Vital Signs Date Time Temp Pulse Resp B/P (MAP) Pulse Ox O2 Delivery O2 Flow Rate FiO2 05/07/19 08:00 97.6 75 16 151/64 (93) 98 Room Air 05/06/19 09:00 28 I&O- Last 24 Hours up to 6 AM0 05/07/19 05:59 Intake Total 3280 ml Output Total 4100 ml Balance -820 ml Laboratory Data Labs 24H Laboratory Tests 2 05/07/19 04:45: Immature Granulocyte % (Auto) 0.2, Neutrophils (%) (Auto) 54.8, Lymphocytes (%) (Auto) 33.8, Monocytes (%) (Auto) 9.8H, Eosinophils (%) (Auto) 0.7, Basophils (%) (Auto) 0.7, Neutrophils # (Auto) 4.8, Lymphocytes # (Auto) 3.0, Monocytes # (Auto) 0.9H, Eosinophils # (Auto) 0.1, Basophils # (Auto) 0.1, Nucleated Red Blood Cells % (auto) 0.0, Anion Gap 6L, Glomerular Filtration Rate > 60.0, Calcium Level 8.1L, Phosphorus Level 3.3, Total Bilirubin 0.9, Aspartate Amino Transf (AST/SGOT) 20, Alanine Aminotransferase (ALT/SGPT) 22, Alkaline Phosphatase 40L, Lactate Dehydrogenase 258H, Total Creatine Kinase 564H, Total Protein 6.3L, Albumin 3.4, Albumin/Globulin Ratio 1.17, Triglycerides Level 140, Cholesterol Level 152 05/07/19 06:04: Blood Gas Bicarbonate Standard 23.7, Arterial Blood pH 7.400, Arterial Blood Partial Pressure CO2 39.0, Arterial Blood Partial Pressure O2 170.7H, Arterial Blood Total CO2 24.8, Arterial Blood HCO3 23.6, Arterial Blood Base Excess -1.0, Arterial Blood Oxygen Saturation 98.8 CBC/BMP Laboratory Tests 05/07/19 04:45 Microbiology Microbiology 05/06/19 Blood Culture - Preliminary, Resulted No growth after 24 hours . All specim... 05/06/19 Blood Culture - Preliminary, Resulted No growth after 24 hours . All specim... Discharge Medications Scheduled Ergocalciferol (Vitamin D2) (Vitamin D2) 2,000 Unit Tablet, 1,000 UNIT PO DAILY, (Reported) Lacosamide (Vimpat) 150 Mg Tablet, 150 MG PO BID, (Reported) Levetiracetam (Keppra) 1,000 Mg Tablet, 1,000 MG PO BID, (Reported) Teriflunomide (Aubagio) 14 Mg Tablet, 14 MG PO DAILY, (Reported) Allergies Coded Allergies: No Known Allergies (Verified , 05/05/19) COOPER SEPULVEDA MD May 07, 2019 11:37
[2019-05-07 12:00] VITALS: BP 158/74
== END 2019-05-07 13:30 | disposition home or self-care (01) | DRG 53 ==
LOC: M ED 22:17 → M ED INP 05-06 01:07 → ENRESERVDT 05-06 01:41 → ENRESERVTM 05-06 01:41 → M ICU 05-06 02:15
PROVIDERS: ADMIT Internal Medicine Pulmonary Disease; ATTEND Internal Medicine
PROC: 5A1935Z Respiratory Ventilation, Less than 24 Consecutive Hours (ICD-10-PCS; principal; 2019-05-06)
PROC: 0BH17EZ Insertion of Endotracheal Airway into Trachea, Via Natural or Artificial Opening (ICD-10-PCS; 2019-05-06)
DX: G40.909 Epilepsy, unspecified, not intractable, without status epilepticus (principal); J96.90 Respiratory failure, unspecified, unspecified whether with hypoxia or hypercapnia; N17.9 Acute kidney failure, unspecified; E87.2 Acidosis; Z87.81 Personal history of (healed) traumatic fracture; Z89.021 Acquired absence of right finger(s); Z87.891 Personal history of nicotine dependence; D72.829 Elevated white blood cell count, unspecified; E86.0 Dehydration; F43.9 Reaction to severe stress, unspecified

== ENCOUNTER 2019-09-10 19:32 | Inpatient (IN) | payer OTHER ==
[~2019-09-10] VITALS: Ht 182.9 cm; Wt 96.7 kg
[~2019-09-10 19:32] MED LIST changes: +AUBA14TA PO; +ETOMIDATE INJ 20MG/10ML VIAL ONE; +SUCCINYLCHOLINE 100 MG/5 ML SYRINGE (J0330) ONE; +VIMP150T PO; +VITA200028 PO
[2019-09-10] MEDS ORDERED: PROPOFOL 1,000 MG/100 ML VIAL As Ordered ONE (20:18)
[2019-09-10] MEDS ORDERED: SUCCINYLCHOLINE INJ 200 MG/10 ML VIAL (J0330) XX STA (20:38)
[2019-09-10] MEDS ORDERED: propofoL 1,000 MG in IV 1 EA IV SCH (20:45)
[2019-09-10] MEDS ORDERED: propofoL 200 MG/20 ML VIAL IV ONE ×3 (20:45→23:30)
[2019-09-10] MEDS ORDERED: DIVA500T94 PO (20:48)
[2019-09-10] MEDS ORDERED: VITAD1000T PO (20:49)
--- NOTE | 2019-09-10 21:07 | REPVR ---
PROCEDURE INFORMATION: Exam: CT Head Without Contrast Exam date and time: 09/10/2019 8:54 PM Age: 38 years old Clinical indication: Altered mental status/memory loss; Confusion or disorientation; Additional info: AMS TECHNIQUE: Imaging protocol: Computed tomography of the head without contrast. Radiation optimization: All CT scans at this facility use at least one of these dose optimization techniques: automated exposure control; mA and/or kV adjustment per patient size (includes targeted exams where dose is matched to clinical indication); or iterative reconstruction. COMPARISON: CT Head without contrast 05/30/2018 4:35 AM FINDINGS: Brain: Normal. No hemorrhage. Unremarkable white matter. No mass effect. Ventricles: Normal. No ventriculomegaly. Bones/joints: Unremarkable. No acute fracture. Sinuses: Visualized sinuses are unremarkable. No fluid levels. Mastoid air cells: Visualized mastoid air cells are well aerated. Soft tissues: Unremarkable. IMPRESSION: No acute intracranial abnormality. Electronically signed by: Chucho Andrew On 09/10/2019 21:06:52 PM
[2019-09-10 21:44] LABS: BASO # 0.1 10^3/uL (0.0-0.2); BASO % 0.5 % (0.0-1.0); HEMATOCRIT 45.9 % (42.0-52.0); HEMOGLOBIN 15.1 g/dl (13.5-17.5); LYMPH # 0.8 10^3/uL (1.5-5.0); LYMPH % 3.4 % (24.0-44.0); MEAN CORPUSCULAR HEMOGLOBIN 29.7 pg (27.0-33.0); MEAN CORPUSCULAR HGB CONC 32.9 g/dl (32.0-36.5); MEAN CORPUSCULAR VOLUME 90.2 fl (80.0-96.0); MONO # 1.8 10^3/uL (0.0-0.8); MONO % 8.3 % (0.0-5.0); NEUTROPHILS % 86.8 % (36.0-66.0); PLATELET COUNT, AUTOMATED 251 10^3/uL (150-450); RED BLOOD COUNT 5.09 10^6/uL (4.30-6.10); WHITE BLOOD COUNT 21.9 10^3/uL (4.0-10.0)
[2019-09-10 21:50] LABS: AMPHETAMINES LEVEL URINE NEGATIVE (NEGATIVE); BARBITURATES URINE NEGATIVE (NEGATIVE); BENZODIAZEPINES URINE POSITIVE (NEGATIVE); CANNABINOIDS URINE POSITIVE (NEGATIVE); COCAINE METABOLITE URINE NEGATIVE (NEGATIVE); METHADONE URINE NEGATIVE (NEGATIVE); OPIATES URINE NEGATIVE (NEGATIVE); PHENCYCLIDINE URINE NEGATIVE (NEGATIVE)
[2019-09-10] MEDS ORDERED: levETIRAcetam INJection 1,000 MG in D5W 100 ML IV ONE (22:15)
[2019-09-10 22:21] LABS: BLOOD UREA NITROGEN 16 MG/DL (7-18); CALCIUM LEVEL 8.7 MG/DL (8.5-10.1); CARBON DIOXIDE LEVEL 22 MEQ/L (21-32); CHLORIDE LEVEL 109 MEQ/L (98-107); CPK CREATINE PHOSPHOKINASE 494 U/L (39-308); CREATININE FOR GFR 1.48 MG/DL (0.70-1.30); ETHYL ALCOHOL (ETHANOL) < 0.003 % (0.000-0.010); GLOMERULAR FILTRATION RATE 56.9 (>60); GLUCOSE, FASTING 90 MG/DL (70-100); POTASSIUM SERUM 4.3 MEQ/L (3.5-5.1); SODIUM LEVEL 140 MEQ/L (136-145)
[2019-09-10] MEDS ORDERED: NS 1,000 ML IV ONE (22:30)
[2019-09-10] MEDS ORDERED: MIDAZOLAM INJ 2MG/2ML VIAL (J2250 PER 1MG) IV PRN (23:45)
[2019-09-11] VITALS (8 sets, daily range): BP systolic 105–137; BP diastolic 59–84; O2SAT 100
[2019-09-11 00:55] LABS: ABG BASE EXCESS -3.6 (-2.0-2.0); ABG O2 SATURATION 98.4 % (95.0-99.0); ABG PARTIAL PRESSURE CO2 36.8 mmHg (35.0-45.0); ABG PARTIAL PRESSURE O2 176.6 mmHg (75.0-100.0); ABG STANDARD HCO3 21.5 MEQ/L (22.0-26.0); ABG TOTAL CO2 22.2 MEQ/L (22.0-29.0); ABG pH (ARTERIAL) 7.375 UNITS (7.350-7.450)
[2019-09-11] MEDS: D5W/0.45% SODIUM CHLORIDE 1,000 ML IV SCH ×2 (01:40→08:29)
[2019-09-11] MEDS ORDERED: ACETAMINOPHEN 325 MG/10.15 ML UDC GT PRN (02:45)
[2019-09-11] MEDS ORDERED: cefTRIAXone SOD 2 GM in D5W MINI-BAG PLUS 50 ML IV ONE (03:00)
[2019-09-11] MEDS: CHLORHEXIDINE GLUCONATE 0.12 % 15ML UDC (PERIDEX ORAL RINSE) MT SCH ×2 (03:25→08:29)
[2019-09-11] MEDS: propofoL 1,000 MG in IV 1 EA IV SCH ×4 (03:28→09:29)
[2019-09-11 04:39] LABS: HEMATOCRIT 41.2 % (42.0-52.0); HEMOGLOBIN 13.5 g/dl (13.5-17.5); MEAN CORPUSCULAR HEMOGLOBIN 29.3 pg (27.0-33.0); MEAN CORPUSCULAR HGB CONC 32.8 g/dl (32.0-36.5); MEAN CORPUSCULAR VOLUME 89.6 fl (80.0-96.0); PLATELET COUNT, AUTOMATED 219 10^3/uL (150-450); WHITE BLOOD COUNT 15.5 10^3/uL (4.0-10.0)
[2019-09-11 05:14] LABS: BLOOD UREA NITROGEN 15 MG/DL (7-18); CALCIUM LEVEL 7.7 MG/DL (8.5-10.1); CARBON DIOXIDE LEVEL 25 MEQ/L (21-32); CHLORIDE LEVEL 113 MEQ/L (98-107); CPK CREATINE PHOSPHOKINASE 1818 U/L (39-308); CREATININE FOR GFR 1.25 MG/DL (0.70-1.30); GLOMERULAR FILTRATION RATE > 60.0 (>60); GLUCOSE, FASTING 112 MG/DL (70-100); MAGNESIUM LEVEL 3.1 MG/DL (1.8-2.4); PHOSPHORUS LEVEL 4.3 MG/DL (2.5-4.9); POTASSIUM SERUM 4.2 MEQ/L (3.5-5.1); SODIUM LEVEL 142 MEQ/L (136-145)
[2019-09-11 05:59] LABS: ABG BASE EXCESS -3.7 (-2.0-2.0); ABG HCO3 21.1 MEQ/L (22.0-26.0); ABG PARTIAL PRESSURE CO2 37.5 mmHg (35.0-45.0); ABG PARTIAL PRESSURE O2 106.3 mmHg (75.0-100.0); ABG STANDARD HCO3 21.4 MEQ/L (22.0-26.0); ABG TOTAL CO2 22.2 MEQ/L (22.0-29.0); ABG pH (ARTERIAL) 7.368 UNITS (7.350-7.450)
--- NOTE | 2019-09-11 08:18 | REP ---
Clinical: Endotracheal tube placement . Comparison: 05/05/2019 . Findings: Endotracheal tube 3 cm above the harpreet. The mediastinum and cardiac silhouette are stable and within normal limits for portable technique. The lung mitchell are clear without acute consolidation, effusion, or pneumothorax. Skeletal structures are intact. Impression: No acute cardiopulmonary process appreciated. Electronically Signed by Guru Us MD 09/11/2019 08:10 A
[2019-09-11] MEDS: LACOSAMIDE 10MG/ML 20ML VIAL (VIMPAT) IV SCH ×2 (08:26→21:25)
[2019-09-11] MEDS: ENOXAPARIN 40MG/0.4ML SYRINGE (J1650 PER 10MG) SC SCH (08:26)
[2019-09-11] MEDS: levETIRAcetam INJection 500 MG in D5W MINI-BAG PLUS 100 ML IV SCH ×2 (08:26→21:25)
[2019-09-11] MEDS: PANTOPRAZOLE 40MG VIAL (C9113 PER 1) IV SCH (08:27)
[2019-09-11] MEDS ORDERED: NS 1,000 ML IV ONE (08:30)
--- NOTE | 2019-09-11 09:50 | REP ---
PORTABLE CHEST X-RAY: Single view. HISTORY: Intubated patient. COMPARISON CHEST X-RAY: September 10, 2019. FINDINGS: Endotracheal tube terminates in good position at the level of the transverse aorta. An NG tube enters left upper quadrant. Monitoring electrodes are seen. The lungs are symmetrically aerated and appear clear. Pleural angles are sharp. Heart is not enlarged. IMPRESSION: No infiltrates seen. Endotracheal and nasogastric tubes in place. Electronically Signed by Ceferino Solo MD 09/11/2019 04:13 P
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
[2019-09-11] MEDS ORDERED: LORazepam 2 MG/ML VIAL IV PRN ×2 (12:30→22:45)
[2019-09-11 12:42] LABS: APPEARANCE, CSF CLEAR (CLEAR); COLOR, CSF COLORLESS (COLORLESS); CSF TUBE# CELL CNT TUBE 4
[2019-09-11 12:44] LABS: APPEARANCE, CSF CLEAR (CLEAR); COLOR, CSF COLORLESS (COLORLESS); CSF TUBE# CELL CNT TUBE 1
[2019-09-11 12:58] LABS: CSF TUBE# GLU TUBE 1; CSF TUBE# TP TUBE 1; GLUCOSE CSF 73 MG/DL (40-75); TOTAL PROTEIN,CSF 60 MG/DL (15-45)
[2019-09-11 14:21] LABS: CSF TUBE# LDH TUBE 1; LDH CSF 19 U/L
--- NOTE | 2019-09-11 14:36 | HPEPDOC ---
[facility] Medical History & Physical Date of Admission Sep 10, 2019 Date of Service: Sep 11, 2019 History and Physical ACCEPTANCE NOTE FROM ICU CHIEF COMPLAINT: Seizures HISTORY OF PRESENT ILLNESS: Patient is 38 year old male with PMH Multiple sclerosis and Seizure disorder was admitted to the ICU at [facility] for reported seizures. He was intubated and managed in the ICU since arrival and was extubated this morning. Patient appear comfortable and unable to provide history due to sore throat at this time. He wh ispers minimally and does not answer most questions, primarily states that he wants to go home despite being informed that workup is still ongoing and he is still being treated. He agreed to stay after discussion and reports no other complaints apart from sore throat, denies any chest pain, SOB, fever, chills. He does not recall what happened that led to his hospitalization. He was noted to have leukocytosis WBC 21.9 and lactic acidosis of 7.7, both had improved with complete resolution of lactic acidosis and WBC dropped to 15. LP was performed and patient was started on Rocephin. PAST MEDICAL HISTORY: Refer to [facility] PAST SURGICAL HISTORY: R. ankle ORIF Tonsillectomy L. hip fracture SOCIAL HISTORY: Smokes 1ppd. Social alcohol use. Marijuana use FAMILY HISTORY: Mother- HTN ALLERGIES: Please see below. REVIEW OF SYSTEMS: 10 point review of system negative except as stated in [facility] HOME MEDICATIONS: Please see below. PHYSICAL EXAMINATION: General: No acute distress, Alert, hoarse voice, minimal verbal communication Eyes: Normal sclera, EOMI HENT: Atraumatic Cardiovascular: Normal rate, normal rhythm. Pulmonary: Clear to auscultation b/l, no wheezing GI: Soft, nontender, nondistended Skin: Warm and dry Neuro: CN grossly intact. No focal deficits. Strengths equal b/l. LABORATORY DATA: See below. IMAGING: Head CT-No acute intracranial abnormality. CXR- No acute cardiopulmonary process MICROBIOLOGY: Please see below. ASSESSMENT AND PLAN: 1. Seizures - Patient does not recall events leading up to hospitalization. Previous documented history of medication noncompliance. - Follows with neurology as outpatient. - Loaded with keppra on presentation. - Restarted on Keppra and Vimpat now. Transition to PO once patient able to swallow. - No clear source of infection appreciated. CSF culture pending, Gram stain shows no organisms and negative CSF PCR. 2. MS - Managed by neurology outpatient. 3. Leukocytosis/Lactic acidosis - Patient fit criteria for sepsis on arrival given leukocytosis, lactic acidosis and fever of 101.3. - No clear source appreciated. CXR shows no acute pulmonary disease. UA clean. - CSF gram stain and PCR does not show any abnormality. Pending final culture. - less likely infectious, suspect reactive to seizure activity/ventilator. - Continue to monitor. DVT ppx: lovenox Code status: Full code Vital Signs Vital Signs Date Time Temp Pulse Resp B/P (MAP) Pulse Ox O2 Delivery O2 Flow Rate FiO2 09/11/19 12:00 100 Aerosol Mask 28 09/11/19 09:00 71 15 117/74 (88) 09/11/19 08:00 99.3 09/10/19 20:00 4.0 Laboratory Data Labs 24H Laboratory Tests 2 09/10/19 21:10: Immature Granulocyte % (Auto) 1.0, Neutrophils (%) (Auto) 86.8H, Lymphocytes (%) (Auto) 3.4L, Monocytes (%) (Auto) 8.3H, Eosinophils (%) (Auto) 0.0, Basophils (%) (Auto) 0.5, Neutrophils # (Auto) 19.0H, Lymphocytes # (Auto) 0.8L, Monocytes # (Auto) 1.8H, Eosinophils # (Auto) 0.0, Basophils # (Auto) 0.1, Nucleated Red Blood Cells % (auto) 0.0, Anion Gap 9, Glomerular Filtration Rate 56.9L, Lactic Acid Level 7.7*H, Calcium Level 8.7, Total Creatine Kinase 494H, Urine Opiates Screen NEGATIVE, Urine Methadone Screen NEGATIVE, Urine Barbiturates Screen NEGATIVE, Urine Phencyclidine Screen NEGATIVE, Urine Amphetamines Screen NEGAT SEVERO, Urine Benzodiazepines Screen POSITIVEH, Urine Cocaine Metabolite Screen NEGATIVE, Urine Cannabinoids Screen POSITIVEH, Ethyl Alcohol Level < 0.003 09/10/19 21:15: POC pH (Misc Panel) 7.206*L, POC Base Excess (Misc Panel) -12.0L, POC Saturated Percent O2 (Misc) 97, POC pO2 (Misc Panel) 108.0H, POC pCO2 (Misc Panel) 40.6, POC HCO3 (Misc Panel) 16.1L, POC Total CO2 (Misc Panel) 17.0L 09/10/19 23:55: Urine Color STRAW, Urine Appearance CLOUDYH, Urine pH 5.0, Urine Specific [place] 1.006, Urine Protein NEGATIVE, Urine Glucose (UA) NEGATIVE, Urine [place] NEGATIVE, Urine Blood 2+H, Urine Nitrite NEGATIVE, Urine Bilirubin NEGATIVE, Urine Urobilinogen 0.2, Urine Leukocyte Esterase NEGATIVE, Urine WBC (Auto) 1, Urine RBC (Auto) 36H, Urine Hyaline Casts (Auto) 0, Urine Bacteria (Auto) NEGATIVE, Urine Squamous Epithelial Cells 0, Urine Uric Acid Crystals (Auto) MODERATE, Urine Mucus (Auto) SMALL, Urine Sperm (Auto) 09/11/19 00:43: Blood Gas Bicarbonate Standard 21.5L, Arterial Blood pH 7.375, Arterial Blood Partial Pressure CO2 36.8, Arterial Blood Partial Pressure O2 176.6H, Arterial Blood Total CO2 22.2, Arterial Blood HCO3 21.0L, Arterial Blood Base Excess - 3.6L, Arterial Blood Oxygen Saturation 98.4 09/11/19 01:35: Lactic Acid Followup at 4 Hours 1.6 09/11/19 04:18: Nucleated Red Blood Cells % (auto) 0.0, Anion Gap 4L, Glomerular Filtration Rate > 60.0, Calcium Level 7.7L, Phosphorus Level 4.3, Magnesium Level 3.1H, Total Creatine Kinase 1818#H 09/11/19 05:45: Blood Gas Bicarbonate Standard 21.4L, Arterial Blood pH 7.368, Arterial Blood Partial Pressure CO2 37.5, Arterial Blood Partial Pressure O2 106.3H, Arterial Blood Total CO2 22.2, Arterial Blood HCO3 21.1L, Arterial Blood Base Excess - 3.7L, Arterial Blood Oxygen Saturation 97.0 09/11/19 12:10: CSF Tube Number TUBE 1, CSF Appearance CLEAR, CSF Color COLORLESS, CSF WBC ( Auto) 16H, CSF RBC (Auto) < 2H, CSF Glucose (Tube 1) TUBE 1, CSF Total Protein (Tube 1) TUBE 1, CSF Cell Count Tube # TUBE 4, CSF Mononuclear Cells % (Auto) 93.8H, CSF Polynuclear WBCs (%) 6.2H, CSF Glucose 73, CSF Lactate Dehydrogenase 19, CSF Total Protein 60H CBC/BMP Laboratory Tests 09/10/19 21:10 09/11/19 04:18 Microbiology Microbiology 09/11/19 Gram Stain - Final, Resulted 09/11/19 CSF Culture, Resulted Pending 09/11/19 - Final, Resulted 09/11/19 Blood Culture, Received Pending Home Medications Scheduled Cholecalciferol (Vitamin D3) (Vitamin D3) 1,000 Unit Tablet, 2,000 UNITS PO DAILY Divalproex Sodium (Divalproex Sodium) 500 Mg Tablet.dr, 500 MG PO BID Lacosamide (Vimpat) 150 Mg Tablet, 150 MG PO BID Teriflunomide (Aubagio) 14 Mg Tablet, 14 MG PO DAILY Allergies Coded Allergies: No Known Allergies (Verified , 05/05/19) A-FIB/CHADSVASC A-FIB History Current/History of A-Fib/PAF?: No MERY SMITH MD Sep 11, 2019 14:36
[2019-09-11] MEDS: cefTRIAXone SOD 2 GM in D5W MINI-BAG PLUS 50 ML IV SCH (15:15)
--- NOTE | 2019-09-11 16:04 | CCN ---
DATE: 09/11/2019 Patient was seen at bedside in the intensive care unit (ICU) this morning. Patient is intubated n pressure regulated volume control (PRVC) with modes,TV 500, PEEP 5, respirations 16, FiO2 40% saturating at 98%. He is resting comfortably without any acute distress; no agitation. There were no seizure activities overnight. He had a net positive output of about 1 liter. Overnight, patient had a Tmax temp 101.3, but has been afebrile this am (99.3F). REVIEW OF SYSTEMS: Limited due to patient's mentation and intubation status. PHYSICAL EXAMINATION: VITAL SIGNS: Blood pressure 135/82, MAP of 99 pulse 70, temperature 99.3, Oxygen saturation 98% on PRVC TV 500, PEEP 5, respirations 16, FiO2 40% GENERAL: Well-hydrated, well-nourished adult male appears his stated age laying in bed intubated with no apparent acute distress or agitation. NEURO: No seizure activities or tremors. Spontaneous eye movements. Verbal unobtainable due to intubation status. There is movement with pain. 2+ reflexes in the patella and brachial bilaterally. No myoclonus on dorsiflexion of feet. HEENT: Pupils reactive to light, symmetrical bilaterally. Mucous membranes moist. Tongue is midline. No thyromegaly. LYMPHATICS: No cervical, supraclavicular or axillary adenopathy palpated. CARDIO: Sinus rhythm. Heart rate 70. Normal S1, S2. No murmurs, gallops or rubs. Point of maximum impulse (PMI) nondisplaced. No jugular venous distention (JVD). No peripheral edema. PULMONARY: Clear on auscultation No accessory muscle use and no retractions or dullness to percussion. ABDOMEN: Soft, nontender, nondistended. No bruits auscultated over the abdomen. SKIN: No decubitus ulcers. No wounds or bruises, jaundice or rashes. MUSCULOSKELETAL/EXTREMITIES: No cyanosis, clubbing. Normal muscle tone. Range of motion unable to be obtained due to mentation/intubation status. No evidence of joint effusions or fractures. LABS: White count 15.5, hemoglobin and hematocrit 13.5/41.2, platelet 219. Sodium 142, potassium 4.2, chloride 113, bicarbonate 25, BUN and creatinine 15/1.25, blood sugar 112. Blood cultures pending. IMAGING: Chest x-ray on 09/11/2019: Endotracheal tube terminates in good position at the level of the transverse aorta. Nasogastric (NG) tube in place. Lungs are symmetrically aerated and appears clear. No pleural effusion seen. No cardiomegaly. ASSESSMENT & PLAN: Patient is a 38-year-old male with past medical history of seizures and multiple sclerosis with previous history of noncompliance and prior admissions for seizure disorder requiring intubation and mechanical ventilation. Patient presented again with seizures controlled on Versed in ED. Patient was lethargic and hypoxic on arrival to the ED and there was concern for airway protection and patient was thereafter intubated and placed on mechanical ventilation. Neurologic: Hx of seizure disorder and multiple sclerosis (MS) with history of noncompliance and previous admissions, at least two with acute seizure, current intubation as well as on mechanical ventilation. Urine tox showed positive for cannabis and benzodiazepines. Head CT negative for acute bleeds or other acute pathology. Patient is currently on 80mg of propofol which is being weaned this am. Will continue seizure precautions. Patient spiked a fever of 101.3 overnight and with seizure history, we will perform a lumbar puncture to rule out meningitis. Continue with current seizure medications of keppra and vimpat Cardiovascular: Patient has no prior cardiac history. Blood pressure 135/82 with a MAP of 99 this morning. We will continue to monitor his blood pressure closely and lactic acid normalized 1.6 today. Pulmonary: Patient is currently intubated on PRVC with settings of tidal volume 500, PEEP of 5, respirations 16, FiO2 40% saturation at 98%. Patient is being weaned off of propofol. Will do a CPAP trial and if patient tolerates, plan on extubation. Will continue vent bundle care with head of the bed elevated and mouthwash with Chlorhexidine. Renal/Nephrology: Patient presented with acute kidney injury and elevated CPK likely secondary to his seizure disorder. This morning, BUN and creatinine improved to 15/1.25. Will continue with IV fluids. We will also give a bolus of normal saline and continue to monitor his CPK level and renal function. Will continue to monitor electrolytes, closely and replete as necessary. Infectious disease: Patient's leukocytosis has improved from yesterday. Today's white count 15.5. Patient spiked a fever overnight of 101.3 and with his previous history of seizures, we cannot rule out meningitis we will perform a emergent bedside lumbar puncture and sent out to the lab for results. At this point, we will start on Rocephin 2 grams IV every 12 hours pending blood cultures. Gastrointestinal: Patient has an orogastric (OG) tube in place with low wall intermittent suction. Will continue Protonix for GI prophylaxis, nothing by mouth at this point. (DVT) prophylaxis with Lovenox. GI prophylaxis: With Protonix. CODE STATUS: FULL CODE. Total critical care time spent not including procedures approx 45 mins. I, Payton Maravilla, have conducted an independent history and examination of the patient and agree with the plan as detailed by resident and discussed during rounds. EULALIO
--- NOTE | 2019-09-11 16:17 | RO ---
DATE OF PROCEDURE: 09/11/19 TIME: 11:10 INDICATION: Fever and history of seizure - meningitis rule out. PROCEDURE: Lumbar puncture procedure note. RESIDENT: Dr. Dwight Alva. ATTENDING: Dr. Payton Maravilla. ANESTHESIA: Local 1% lidocaine with epinephrine. A time-out was completed verifying correct patient, procedure, site, positioning and special equipment (lumbar puncture kit). Patient had an emergent bedside lumbar puncture as patient was intubated and patient does not have a proxy at this time. Patient had no contraindications and CT of the head performed on 09/10/2019 did not show any acute abnormalities or intracranial bleeding. The area of the lumbar region was prepped and draped in the usual sterile fashion. Patient was positioned in a left lateral decubitus/ position. The anterior superior iliac crest was located for L4 landmark. Vertebral segments are palpated above and below to determine the widest space. A katerina was placed with the needle cap. The skin was aseptically cleaned with Betadine in the LP tray with sterile gloves on. A local 1% lidocaine with epinephrine from the LP kit was injected in the marked location in the L4-5 interspace. A 22-gauge spinal needle was then inserted. A pop sensation was felt with entry into the subarachnoid space. The stylette was then removed and the opening pressure was measured at about 24 cm of water. About 3.5 mL of clear cerebrospinal fluid (CSF) fluid are collected (3.5 vials) and sent for CSF culture and Gram stain, meningitis/encephalitis panel and IgG index and synthesis, myelin basic protein and oligoclonal bands. The patient tolerated the procedure well. There was no blood loss or hematoma. [facility]
[2019-09-11] MEDS: TERIFLUNOMIDE 14 MG PO SCH (16:29)
[2019-09-11] MEDS: NICOTINE 21MG/24HR 1 EA TRANSDERMAL TD SCH (17:49)
[2019-09-11] MEDS ORDERED: CEPACOL LOZENGE PO PRN (20:00)
[2019-09-11] MEDS ORDERED: hydrOXYzine 50 MG TAB PO ONE (23:00)
[2019-09-12] VITALS: BP 129/80
[2019-09-12] MEDS: cefTRIAXone SOD 2 GM in D5W MINI-BAG PLUS 50 ML IV SCH (03:51)
[2019-09-12 05:06] LABS: HEMATOCRIT 40.1 % (42.0-52.0); MEAN CORPUSCULAR HEMOGLOBIN 29.7 pg (27.0-33.0); MEAN CORPUSCULAR HGB CONC 32.4 g/dl (32.0-36.5); MEAN CORPUSCULAR VOLUME 91.8 fl (80.0-96.0); PLATELET COUNT, AUTOMATED 193 10^3/uL (150-450); RED BLOOD COUNT 4.37 10^6/uL (4.30-6.10); WHITE BLOOD COUNT 10.7 10^3/uL (4.0-10.0)
[2019-09-12 05:19] LABS: BLOOD UREA NITROGEN 10 MG/DL (7-18); CARBON DIOXIDE LEVEL 27 MEQ/L (21-32); CHLORIDE LEVEL 113 MEQ/L (98-107); CREATININE FOR GFR 0.82 MG/DL (0.70-1.30); GLOMERULAR FILTRATION RATE > 60.0 (>60); GLUCOSE, FASTING 105 MG/DL (70-100); POTASSIUM SERUM 3.5 MEQ/L (3.5-5.1); SODIUM LEVEL 146 MEQ/L (136-145)
[2019-09-12 08:00] VITALS: BP 143/81
[2019-09-12] MEDS: TERIFLUNOMIDE 14 MG PO SCH (08:55)
[2019-09-12] MEDS: NICOTINE 21MG/24HR 1 EA TRANSDERMAL TD SCH (08:55)
[2019-09-12] MEDS: ENOXAPARIN 40MG/0.4ML SYRINGE (J1650 PER 10MG) SC SCH (08:56)
[2019-09-12] MEDS: levETIRAcetam INJection 500 MG in D5W MINI-BAG PLUS 100 ML IV SCH (08:56)
[2019-09-12] MEDS: PANTOPRAZOLE 40MG VIAL (C9113 PER 1) IV SCH (08:56)
[2019-09-12] MEDS: LACOSAMIDE 10MG/ML 20ML VIAL (VIMPAT) IV SCH (09:00)
--- NOTE | 2019-09-12 17:43 | DS.PDOC ---
Discharge Summary General Date of Admission Sep 10, 2019 at 23:38 Date of Discharge 09/12/19 Discharge Summary PROCEDURES PERFORMED DURING STAY: [None]. ADMITTING DIAGNOSES: 1. Seizures 2. Seizure disorder with occasional noncompliance 3. multiple sclerosis DISCHARGE DIAGNOSES: 1. Seizures 2. Seizure disorder with occasional noncompliance 3. multiple sclerosis COMPLICATIONS/CHIEF COMPLAINT: Resp Failure Requiring Intubation. HISTORY OF PRESENT ILLNESS: "Patient is 38 year old male with PMH Multiple sclerosis and Seizure disorder was admitted to the ICU at [facility] for reported seizures. He was intubated and managed in the ICU since arrival and was extubated this morning. Patient appear comfortable and unable to provide history due to sore throat at this time. He whispers minimally and does not answer most questions, primarily states that he wants to go home despite being informed that workup is still ongoing and he is still being treated. He agreed to stay after discussion and reports no other complaints apart from sore throat, denies any chest pain, SOB, fever, chills. He does not recall what happened that led to his hospitalization. He was noted to have leukocytosis WBC 21.9 and lactic acidosis of 7.7, both had improved with complete resolution of lactic acidosis and WBC dropped to 15. LP was performed and patient was started on Rocephin." HOSPITAL COURSE: Patient remained stable post extubation and did not develop any further fevers with continued improvement in leukocytosis. He had been adamant about leaving the hospital right after extubation and continued to be so today. He is on Rocephin to cover for possible meningitis although he does have evidence of leukocytosis with his seizures. He does not exhibit any meningeal signs and does not have any neurological deficits. Blood cultures negative x24 hours and CSF gram stain as well as PCR does not show any organisms. Prefer that patient stay until further data can be obtained but he is adamant about leaving today and will follow up with his PCP and neurology instead. I have low suspicion for any infectious etiology but informed patient to come back to ER should he develop any symptoms or illness. Need to follow up final blood culture and CSF culture as outpatient. He reportedly missed a medication dose follow by several nights of not sleeping, which is his trigger for developing seizures. He is resumed on his home dose medication as the etiology is partly due to noncompliance. To discuss event with Dr. Slater, his neurologist and can determine if medication need to be adjusted at all. DISCHARGE MEDICATIONS: Please see below. ALLERGIES: Please see below. PHYSICAL EXAMINATION ON DISCHARGE: VITAL SIGNS: Please see below. General: No acute distress, Alert, hoarse voice, minimal verbal communication Eyes: Normal sclera, EOMI HENT: Atraumatic Cardiovascular: Normal rate, normal rhythm. Pulmonary: Clear to auscultation b/l, no wheezing GI: Soft, nontender, nondistended Skin: Warm and dry Neuro: CN grossly intact. No focal deficits. Strengths equal b/l. no neck stiffness. Negative Rovsing and Kernig sign. LABORATORY DATA: Please see below. IMAGING: Head CT-No acute intracranial abnormality. CXR- No acute cardiopulmonary process ACTIVITY: [As tolerated]. DIET: Regular DISCHARGE PLAN: F/u PCP and neurology Remain completely complaint with medications f/u blood and CSF cultures DISPOSITION: 01 Home, Self-Care. DISCHARGE INSTRUCTIONS: F/u PCP and neurology Remain completely complaint with medications f/u blood and CSF cultures ITEMS TO FOLLOWUP ON ON OUTPATIENT: 1. Blood and CSF cultures DISCHARGE CONDITION: [Stable]. TIME SPENT ON DISCHARGE: 35 minutes. Vital Signs/I&Os Vital Signs Date Time Temp Pulse Resp B/P (MAP) Pulse Ox O2 Delivery O2 Flow Rate FiO2 09/12/19 08:00 97.9 70 24 143/81 (101) 98 Room Air 09/11/19 12:00 28 09/10/19 20:00 4.0 I&O- Last 24 Hours up to 6 AM 09/12/19 06:00 Intake Total 150 ml Output Total 1900 ml Balance -1750 ml Laboratory Data Labs 24H Laboratory Tests 2 09/12/19 04:25: Nucleated Red Blood Cells % (auto) 0.0, Anion Gap 6L, Glomerular Filtration Rate > 60.0, Calcium Level 8.0L CBC/BMP Laboratory Tests 09/12/19 04:25 Microbiology Microbiology 09/11/19 Gram Stain - Final, Resulted 09/11/19 CSF Culture, Resulted Pending 09/11/19 - Final, Resulted 09/11/19 Blood Culture - Preliminary, Resulted No growth after 24 hours . All specim... Discharge Medications Scheduled Cholecalciferol (Vitamin D3) (Vitamin D3) 1,000 Unit Tablet, 2,000 UNITS PO DAILY, (Reported) Divalproex Sodium (Divalproex Sodium) 500 Mg Tablet.dr 500 MG PO BID, (Reported) Lacosamide (Vimpat) 150 Mg Tablet, 150 MG PO BID, (Reported) Teriflunomide (Aubagio) 14 Mg Tablet, 14 MG PO DAILY, (Reported) Allergies Coded Allergies: No Known Allergies (Verified , 05/05/19) MERY SMITH MD Sep 12, 2019 17:43
== END 2019-09-12 14:08 | disposition home or self-care (01) | DRG 53 ==
LOC: M ED 19:32 → M ED INP 23:38 → M ICU 09-11 01:50
PROVIDERS: ADMIT Internal Medicine Pulmonary Disease; ATTEND Student in an Organized Health Care Education/Training Program
PROC: 5A0935Z Assistance with Respiratory Ventilation, Less than 24 Consecutive Hours (ICD-10-PCS; 2019-09-10)
PROC: 009U3ZX Drainage of Spinal Canal, Percutaneous Approach, Diagnostic (ICD-10-PCS; principal; 2019-09-11)
DX: G40.909 Epilepsy, unspecified, not intractable, without status epilepticus (principal); E87.2 Acidosis; G35 Multiple sclerosis; Z91.14 Patient's other noncompliance with medication regimen; Z79.899 Other long term (current) drug therapy; D72.829 Elevated white blood cell count, unspecified; F12.90 Cannabis use, unspecified, uncomplicated; F17.200 Nicotine dependence, unspecified, uncomplicated

== ENCOUNTER → 2019-09-28 | Outpatient (CLI) | payer OTHER ==
[~2019-09-28] MED LIST changes: +D31000TA2 PO; +DIVA500T94 PO; -ETOMIDATE INJ 20MG/10ML VIAL ONE; -SUCCINYLCHOLINE 100 MG/5 ML SYRINGE (J0330) ONE
[2019-11-24 02:36] LABS: BASO # 0.1 10^3/uL (0.0-0.2); BASO % 0.8 % (0.0-1.0); EOS % 0.5 % (0.0-3.0); HEMATOCRIT 43.3 % (42.0-52.0); HEMOGLOBIN 14.3 g/dl (13.5-17.5); LYMPH # 1.8 10^3/uL (1.5-5.0); LYMPH % 23.7 % (24.0-44.0); MEAN CORPUSCULAR HEMOGLOBIN 29.9 pg (27.0-33.0); MEAN CORPUSCULAR VOLUME 90.6 fl (80.0-96.0); MONO # 0.6 10^3/uL (0.0-0.8); MONO % 7.8 % (0.0-5.0); NEUTROPHILS # 5.2 10^3/uL (1.5-8.5); NEUTROPHILS % 67.1 % (36.0-66.0); PLATELET COUNT, AUTOMATED 250 10^3/uL (150-450); RED BLOOD COUNT 4.78 10^6/uL (4.30-6.10); WHITE BLOOD COUNT 7.7 10^3/uL (4.0-10.0)
== END ==
LOC: M LAB 11:33
PROVIDERS: ATTEND Physician Assistant Medical
DX: Z79.899 Other long term (current) drug therapy (principal)

== ENCOUNTER → 2019-09-28 | Outpatient (CLI) | payer OTHER ==
[2019-11-23 14:08] LABS: APPEARANCE, URINE CLEAR (CLEAR); BACTERIA, URINE AUTO NEGATIVE (NEGATIVE); BILIRUBIN, URINE AUTO NEGATIVE (NEGATIVE); BLOOD, URINE BLOOD NEGATIVE (NEGATIVE); COLOR, URINE STRAW (YELLOW); GLUCOSE, URINE (UA) AUTO NEGATIVE (NEGATIVE); KETONE, URINE AUTO NEGATIVE (NEGATIVE); LEUKOCYTE ESTERASE, URINE AUTO NEGATIVE (NEGATIVE); NITRITE, URINE AUTO NEGATIVE (NEGATIVE); PROTEIN, URINE AUTO NEGATIVE (NEGATIVE); RBC, URINE AUTO 1 /HPF (0-3); SPECIFIC GRAVITY URINE AUTO 1.003 (1.002-1.035); SQUAMOUS EPITHELIAL CELL UR AU 0 /HPF (0-6); UROBILINOGEN, URINE AUTO 0.2 mg/dL (0.0-2.0); WBC, URINE AUTO 0 /HPF (0-3)
[2019-11-24 02:35] LABS: BASO # 0.1 10^3/uL (0.0-0.2); BASO % 0.8 % (0.0-1.0); EOS # 0.1 10^3/uL (0.0-0.5); EOS % 0.6 % (0.0-3.0); HEMATOCRIT 44.1 % (42.0-52.0); HEMOGLOBIN 14.4 g/dl (13.5-17.5); LYMPH # 1.9 10^3/uL (1.5-5.0); LYMPH % 23.9 % (24.0-44.0); MEAN CORPUSCULAR HEMOGLOBIN 29.6 pg (27.0-33.0); MEAN CORPUSCULAR HGB CONC 32.7 g/dl (32.0-36.5); MEAN CORPUSCULAR VOLUME 90.7 fl (80.0-96.0); MONO # 0.6 10^3/uL (0.0-0.8); NEUTROPHILS # 5.2 10^3/uL (1.5-8.5); NEUTROPHILS % 66.3 % (36.0-66.0); PLATELET COUNT, AUTOMATED 252 10^3/uL (150-450); RED BLOOD COUNT 4.86 10^6/uL (4.30-6.10); WHITE BLOOD COUNT 7.9 10^3/uL (4.0-10.0)
[2019-11-25 15:48] LABS: ALBUMIN 3.9 GM/DL (3.2-5.2); ALT/SGPT 25 U/L (12-78); BILIRUBIN,TOTAL 0.3 MG/DL (0.2-1.0); BLOOD UREA NITROGEN 12 MG/DL (7-18); CALCIUM LEVEL 8.8 MG/DL (8.5-10.1); CARBON DIOXIDE LEVEL 28 MEQ/L (21-32); CHLORIDE LEVEL 108 MEQ/L (98-107); CHOLESTEROL LEVEL 183 MG/DL (<200); CHOLESTEROL RISK RATIO 3.519 (<5); CREATININE FOR GFR 0.84 MG/DL (0.70-1.30); FREE T4 0.84 NG/DL (0.76-1.46); GLOMERULAR FILTRATION RATE > 60.0 (>60); GLUCOSE, FASTING 87 MG/DL (70-100); HDL CHOLESTEROL 52 MG/DL (>40); HEMOGLOBIN A1c 5.3 %; LDL CHOLESTEROL 116 MG/DL (<100); NON-HDL-C 131 MG/DL; POTASSIUM SERUM 4.7 MEQ/L (3.5-5.1); SODIUM LEVEL 139 MEQ/L (136-145); THYROID STIMULATING HORMONE 0.711 uIU/ML (0.358-3.740); TOTAL 25(OH) VITAMIN D 44.2 NG/ML (30.0-100.0); TOTAL PROTEIN 7.1 GM/DL (6.4-8.2); TRIGLYCERIDES LEVEL 73 MG/DL (<150)
== END ==
LOC: M LAB 11:25
PROVIDERS: ATTEND Nurse Practitioner Family
DX: Z13.9 Encounter for screening, unspecified (principal); R49.0 Dysphonia; F17.200 Nicotine dependence, unspecified, uncomplicated

== ENCOUNTER 2020-02-29 20:00 | Inpatient (IN) | payer OTHER ==
[~2020-02-29] VITALS: Ht 182.9 cm; Wt 110.4 kg
[2020-02-29] MEDS: IPRATROPIUM 0.5MG/ALBUTEROL 2.5MG INH SOL UD 3ML (DUONEB) NEB SCH (20:00)
[2020-02-29] MEDS ORDERED: AMMONIA AROMATIC INHALANT STA (20:29)
[2020-02-29] MEDS ORDERED: ROCURONIUM BROMIDE 50 MG/5 ML VIAL IV ONE (20:45)
[2020-02-29] MEDS ORDERED: ETOMIDATE INJ 20MG/10ML VIAL IV ONE (20:45)
[2020-02-29] MEDS ORDERED: LIDOCAINE 2% INJ 100 MG/5 ML SYRINGE IV ONE (20:45)
[2020-02-29] MEDS ORDERED: PROPOFOL 1,000 MG/100 ML VIAL As Ordered ONE (20:53)
[2020-02-29] MEDS ORDERED: LACOSAMIDE 10MG/ML 20ML VIAL (VIMPAT) IV STA (21:07)
--- NOTE | 2020-02-29 21:20 | REPVR ---
PROCEDURE INFORMATION: Exam: XR Chest, 1 View Exam date and time: 02/29/2020 9:07 PM Age: 39 years old Clinical indication: Device placement; Other: Tube placement; Additional info: Post intubation tube placement TECHNIQUE: Imaging protocol: XR of the chest Views: 1 view. COMPARISON: OR PORTABLE CHEST X-RAY 09/11/2019 6:10 AM FINDINGS: Tubes, catheters and devices: Endotracheal tube demonstrated with the tip of the tube located 4.6 cm. above the harpreet. NG tube courses through the mediastinum. Tip of the NG tube not visualized. Lungs: Unremarkable. No consolidation. Pleural space: Unremarkable. No pleural effusion. No pneumothorax. Heart/Mediastinum: Unremarkable. No cardiomegaly. Vasculature: Uncoiled thoracic aorta. Bones/joints: Unremarkable. IMPRESSION: No acute findings. Electronically signed by: Danny Quinones On 02/29/2020 21:20:47 PM
[2020-02-29] MEDS ORDERED: MIDAZOLAM 5MG/ML 1ML VIAL (J2250 PER 1MG) As Ordered ONE (21:36)
[2020-02-29 21:38] LABS: ABG BASE EXCESS -3.3 (-2.0-2.0); ABG HCO3 24.6 MEQ/L (22.0-26.0); ABG O2 SATURATION 95.6 % (95.0-99.0); ABG PARTIAL PRESSURE CO2 55.1 mmHg (35.0-45.0); ABG PARTIAL PRESSURE O2 91.9 mmHg (75.0-100.0); ABG STANDARD HCO3 21.7 MEQ/L (22.0-26.0); ABG TOTAL CO2 26.3 MEQ/L (22.0-29.0); ABG pH (ARTERIAL) 7.267 UNITS (7.350-7.450)
[2020-02-29] MEDS ORDERED: MIDAZOLAM 5MG/ML 1ML VIAL (J2250 PER 1MG) IV ONE (21:45)
[2020-02-29] MEDS ORDERED: VALPROATE SOD INJ 1,000 MG in D5W 50 ML IV ONE (22:00)
[2020-02-29] MEDS ORDERED: DIVA250T67 PO (22:16)
[2020-02-29] MEDS ORDERED: VIMP200T PO (22:16)
[2020-02-29] MEDS ORDERED: PATIENT COMMENT (22:18)
[2020-02-29] MEDS ORDERED: propofoL 1,000 MG in IV 1 EA IV SCH ×2 (22:40→23:00)
[2020-02-29 22:46] LABS: AMPHETAMINES LEVEL URINE NEGATIVE (NEGATIVE); BARBITURATES URINE NEGATIVE (NEGATIVE); BENZODIAZEPINES URINE POSITIVE (NEGATIVE); CANNABINOIDS URINE POSITIVE (NEGATIVE); COCAINE METABOLITE URINE NEGATIVE (NEGATIVE); METHADONE URINE NEGATIVE (NEGATIVE); OPIATES URINE NEGATIVE (NEGATIVE); PHENCYCLIDINE URINE NEGATIVE (NEGATIVE)
[2020-02-29 22:56] LABS: BASO # 0.1 10^3/uL (0.0-0.2); BASO % 0.3 % (0.0-1.0); HEMATOCRIT 44.8 % (42.0-52.0); HEMOGLOBIN 14.2 g/dl (13.5-17.5); LYMPH # 0.7 10^3/uL (1.5-5.0); LYMPH % 4.8 % (24.0-44.0); MEAN CORPUSCULAR HEMOGLOBIN 28.9 pg (27.0-33.0); MEAN CORPUSCULAR HGB CONC 31.7 g/dl (32.0-36.5); MEAN CORPUSCULAR VOLUME 91.2 fl (80.0-96.0); MONO # 1.2 10^3/uL (0.0-0.8); MONO % 7.7 % (0.0-5.0); NEUTROPHILS % 86.7 % (36.0-66.0); PLATELET COUNT, AUTOMATED 211 10^3/uL (150-450); RED BLOOD COUNT 4.91 10^6/uL (4.30-6.10)
[2020-02-29] MEDS: propofoL 1,000 MG in IV 1 EA IV SCH (22:57)
--- NOTE | 2020-02-29 23:03 | REPVR ---
PROCEDURE INFORMATION: Exam: XR Chest, 1 View Exam date and time: 02/29/2020 10:58 PM Age: 39 years old Clinical indication: Shortness of breath; Additional info: Cvp right TECHNIQUE: Imaging protocol: XR of the chest Views: 1 view. COMPARISON: CR PORTABLE CHEST X-RAY 02/29/2020 8:46 PM FINDINGS: Tubes, catheters and devices: An ET tube remains in position with the tip approximately the 3.0 cm above the harpreet. An NG tube is unchanged. New right subclavian central line which extends just into the right atrium. Lungs: There is decreased inflation of the lungs. Minimal lateral left base atelectasis or scar which is unchanged. Pleural space: Unremarkable. No pleural effusion. No pneumothorax. Heart/Mediastinum: Unremarkable. No cardiomegaly. Bones/joints: Unremarkable. IMPRESSION: 1. Interval placement of right subclavian central line extending just into the right atrium since a study done earlier in the day. No pneumothorax. 2. Otherwise stable poor inspiratory chest. Electronically signed by: Vikas Gandara On 02/29/2020 23:03:25 PM
[2020-02-29 23:27] LABS: ABG BASE EXCESS 0.1 (-2.0-2.0); ABG HCO3 26.1 MEQ/L (22.0-26.0); ABG O2 SATURATION 98.4 % (95.0-99.0); ABG PARTIAL PRESSURE CO2 47.4 mmHg (35.0-45.0); ABG PARTIAL PRESSURE O2 187.7 mmHg (75.0-100.0); ABG STANDARD HCO3 24.6 MEQ/L (22.0-26.0); ABG TOTAL CO2 27.6 MEQ/L (22.0-29.0); ABG pH (ARTERIAL) 7.359 UNITS (7.350-7.450)
[2020-02-29 23:32] LABS: ACETAMINOPHEN LEVEL < 2.0 UG/ML (10.0-30.0); BLOOD UREA NITROGEN 13 MG/DL (7-18); CALCIUM LEVEL 8.2 MG/DL (8.5-10.1); CARBON DIOXIDE LEVEL 29 MEQ/L (21-32); CHLORIDE LEVEL 107 MEQ/L (98-107); CPK CREATINE PHOSPHOKINASE 583 U/L (39-308); CREATININE FOR GFR 0.99 MG/DL (0.70-1.30); ETHYL ALCOHOL (ETHANOL) < 0.003 % (0.000-0.010); GLOMERULAR FILTRATION RATE > 60.0 (>60); GLUCOSE, FASTING 109 MG/DL (70-100); POTASSIUM SERUM 4.3 MEQ/L (3.5-5.1); SALICYLATE LEVEL 4.3 MG/DL (5.0-30.0); SODIUM LEVEL 140 MEQ/L (136-145); VALPROIC ACID (DEPAKOTE) 37.9 UG/ML (50.0-100.0)
[2020-03-01] VITALS (29 sets, daily range): BP systolic 115–201; BP diastolic 60–123; O2SAT 96–100
[2020-03-01] MEDS ORDERED: METAL LOCK LOOP XX ONE ×2 (00:09→00:16)
[2020-03-01] MEDS ORDERED: ACETAMINOPHEN TAB 650MG DOSE (2X325MG) PO PRN (00:15)
[2020-03-01] MEDS ORDERED: MOM 30ML SUSPENSION UDC PO PRN (00:15)
[2020-03-01] MEDS ORDERED: MAALOX 30 ML SUSP *UDC PO PRN (00:15)
[2020-03-01] MEDS: NS 1,000 ML IV SCH ×3 (00:15→19:56)
[2020-03-01] MEDS: propofoL 1,000 MG in IV 1 EA IV SCH ×8 (00:56→14:45)
--- NOTE | 2020-03-01 01:10 | HPEPDOC ---
[facility] Medical History & Physical Date of Admission Mar 01, 2020 Date of Service: Mar 01, 2020 History and Physical CHIEF COMPLAINT: status epilepticus HISTORY OF PRESENT ILLNESS: History was obtained from chart and collateral information as patient is intubated and sedated and unable to provide information. Patient is a 39 yo M with a hx of seizure disorder and multiple scleorosis with a hx of medication noncompliance. He has had numerous prior admissions for seizures and had required intubation. Last hospitalized in August 2019, and was intubated as well for seizures and inability to protect airway. Case was discussed with Dr. Cruz per ER provider. Pt received lacosamide 400 mg IV, versed 5 mg IV, valproate 1000 mg. Remains sedated on propofol. Hemodynamically stable. Will be admitted to ICU for futher management of acute hypoxic respiratory failure and seizures. PAST MEDICAL HISTORY: multiple sclerosis seizure disorder PAST SURGICAL HISTORY: R. ankle ORIF Tonsillectomy L. hip fracture SOCIAL HISTORY: smoker, 1 ppd social etoh marijuana use FAMILY HISTORY: Mother - HTN ALLERGIES: Please see below. REVIEW OF SYSTEMS: Patient intubated, sedated, unable to complete ROS. HOME MEDICATIONS: Please see below. PHYSICAL EXAMINATION: VITAL SIGNS: please see below General: sedated, ventilated. HEENT: PERRLA, EOMI, sclerae clear Neck: supple, normal ROM, no JVD Respiratory: lungs CTAB, no wheeze, no rales, no crackles CVS: RRR, normal S1, S2, no murmurs Abdo: soft, no masses, no hepatosplenomegaly, BS+, no rebound tenderness Extremities: no edema, pulses 2+ MSK: no joint deformities, normal ROM Neuro: no focal neuro deficits, moving all 4 extremities, CN2-12 intact. Strength 5/5 in all 4 extremities. No nystagmus. Psych: RASS -3 LABORATORY DATA: See below. IMAGING: CXR (03/01/20): 1. Interval placement of right subclavian central line extending just into the right atrium since a study done earlier in the day. No pneumothorax. 2. Otherwise stable poor inspiratory chest MICROBIOLOGY: Please see below. ASSESSMENT: 39 yo M with a hx of MS and seizure disorder, found in field by EMS after status epilepticus with ongoing focal seizures. Downtime uncertain. Jorge parker intubate and sedated, Dr. Gary and Dr. Cruz are consulted. PLAN: #Seizures - status epilepticus, focal seizures - found in field unresponsive, not protecting airway - intubated, sedated - we will continue with IV hydration - monitor renal function - CK 583 - sedated on propofol - neuro consult #leukocytosis - in the setting of acute seizures, possible demargination - CXR shows no opacities - check UA, blood cultures - check procal - monitor for fevers - broad spectrum antibiotics held for now, unless spikes fever #MS - managed by neuro as outpatient. #GI ppx: protonix IV daily DVT ppx: lovenox Code status: full code Vital Signs Vital Signs Date Time Temp Pulse Resp B/P (MAP) Pulse Ox O2 Delivery O2 Flow Rate FiO2 02/29/20 22:00 87 145/69 (94) 99 02/29/20 21:00 18 50 02/29/20 20:10 98.6 Nasal Cannula 4.0 Laboratory Data Labs 24H Laboratory Tests 2 02/29/20 21:32: Blood Gas Bicarbonate Standard 21.7L, Arterial Blood pH 7.267L, Arterial Blood Partial Pressure CO2 55.1H, Arterial Blood Partial Pressure O2 91.9, Arterial Blood Total CO2 26.3, Arterial Blood HCO3 24.6, Arterial Blood Base Excess - 3.3L, Arterial Blood Oxygen Saturation 95.6 02/29/20 22:02: Urine Opiates Screen NEGATIVE, Urine Methadone Screen NEGATIVE, Urine Barbit urates Screen NEGATIVE, Urine Phencyclidine Screen NEGATIVE, Urine Amphetamines Screen NEGATIVE, Urine Benzodiazepines Screen POSITIVEH, Urine Cocaine Metabolite Screen NEGATIVE, Urine Cannabinoids Screen POSITIVEH 02/29/20 22:48: Immature Granulocyte % (Auto) 0.5, Neutrophils (%) (Auto) 86.7H, Lymphocytes (%) (Auto) 4.8L, Monocytes (%) (Auto) 7.7H, Eosinophils (%) (Auto) 0.0, Basophils (%) (Auto) 0.3, Neutrophils # (Auto) 13.0H, Lymphocytes # (Auto) 0.7L, Monocytes # (Auto) 1.2H, Eosinophils # (Auto) 0.0, Basophils # (Auto) 0.1, Nucleated Red Blood Cells % (auto) 0.0, Anion Gap 4L, Glomerular Filtration Rate > 60.0, Calcium Level 8.2L, Total Creatine Kinase 583H, Salicylates Level 4.3L, Acetaminophen Level < 2.0L, Valproic Acid (Depakene) Level 37.9L, Ethyl Alcohol Level < 0.003 02/29/20 23:17: Blood Gas Bicarbonate Standard 24.6, Arterial Blood pH 7.359, Arterial Blood Partial Pressure CO2 47.4H, Arterial Blood Partial Pressure O2 187.7H, Arterial Blood Total CO2 27.6, Arterial Blood HCO3 26.1H, Arterial Blood Base Excess 0.1, Arterial Blood Oxygen Saturation 98.4 CBC/BMP Laboratory Tests 02/29/20 22:48 Microbiology Microbiology 02/29/20 Respiratory Virus Panel (PCR) ([facility]) - Final, Complete Home Medications Scheduled Cholecalciferol (Vitamin D3) (Vitamin D3) 1,000 Unit Tablet, 2,000 UNITS PO DAILY Divalproex Sodium (Divalproex Sodium) 500 Mg Tablet.dr, 500 MG PO BID TAKES WITH 250MG FOR 750MG TOTAL Divalproex Sodium (Divalproex Sodium) 250 Mg Tablet.dr, 250 MG PO BID TAKES WITH 500MG FOR 750MG TOTAL Lacosamide (Vimpat) 200 Mg Tablet, 200 MG PO BID Teriflunomide (Aubagio) 14 Mg Tablet, 14 MG PO DAILY Miscellaneous Medications [Patient Comment] MED REC COMPLETED VIA EXTERNAL MED HISTORY AND CALL TO PHARMACY Allergies Coded Allergies: No Known Allergies (Verified , 05/05/19) TE BERNAL MD Mar 01, 2020 01:10
[2020-03-01] MEDS: PANTOPRAZOLE 40MG VIAL (C9113 PER 1) IV SCH ×2 (02:36→19:56)
[2020-03-01] MEDS: MIDAZOLAM INJ 2MG/2ML VIAL (J2250 PER 1MG) IV PRN ×6 (05:07→22:21)
[2020-03-01 05:41] LABS: ABG BASE EXCESS -2.5 (-2.0-2.0); ABG HCO3 20.9 MEQ/L (22.0-26.0); ABG O2 SATURATION 97.4 % (95.0-99.0); ABG PARTIAL PRESSURE CO2 32.6 mmHg (35.0-45.0); ABG PARTIAL PRESSURE O2 114.4 mmHg (75.0-100.0); ABG STANDARD HCO3 22.4 MEQ/L (22.0-26.0); ABG TOTAL CO2 21.9 MEQ/L (22.0-29.0); ABG pH (ARTERIAL) 7.425 UNITS (7.350-7.450)
[2020-03-01] MEDS ORDERED: LIDOCAINE 2% INJ 100 MG/5 ML SYRINGE ONE (05:54)
[2020-03-01] MEDS ORDERED: ETOMIDATE INJ 20MG/10ML VIAL ONE (05:54)
[2020-03-01 06:43] LABS: BASO % 0.3 % (0.0-1.0); EOS % 0.1 % (0.0-3.0); HEMATOCRIT 44.9 % (42.0-52.0); HEMOGLOBIN 14.1 g/dl (13.5-17.5); LYMPH # 1.6 10^3/uL (1.5-5.0); LYMPH % 12.2 % (24.0-44.0); MEAN CORPUSCULAR HEMOGLOBIN 28.4 pg (27.0-33.0); MEAN CORPUSCULAR HGB CONC 31.4 g/dl (32.0-36.5); MEAN CORPUSCULAR VOLUME 90.5 fl (80.0-96.0); MONO # 1.5 10^3/uL (0.0-0.8); NEUTROPHILS # 10.2 10^3/uL (1.5-8.5); PLATELET COUNT, AUTOMATED 211 10^3/uL (150-450); RED BLOOD COUNT 4.96 10^6/uL (4.30-6.10); WHITE BLOOD COUNT 13.5 10^3/uL (4.0-10.0)
[2020-03-01 07:11] LABS: ALBUMIN 3.6 GM/DL (3.2-5.2); ALT/SGPT 33 U/L (12-78); BILIRUBIN,TOTAL 0.4 MG/DL (0.2-1.0); BLOOD UREA NITROGEN 10 MG/DL (7-18); CALCIUM LEVEL 8.3 MG/DL (8.5-10.1); CARBON DIOXIDE LEVEL 27 MEQ/L (21-32); CHLORIDE LEVEL 110 MEQ/L (98-107); CPK CREATINE PHOSPHOKINASE 766 U/L (39-308); CREATININE FOR GFR 0.94 MG/DL (0.70-1.30); GLOMERULAR FILTRATION RATE > 60.0 (>60); GLUCOSE, FASTING 98 MG/DL (70-100); MAGNESIUM LEVEL 2.4 MG/DL (1.8-2.4); POTASSIUM SERUM 3.9 MEQ/L (3.5-5.1); SODIUM LEVEL 142 MEQ/L (136-145); TOTAL PROTEIN 6.7 GM/DL (6.4-8.2)
[2020-03-01] MEDS: IPRATROPIUM 0.5MG/ALBUTEROL 2.5MG INH SOL UD 3ML (DUONEB) NEB SCH ×4 (07:30→20:01)
--- NOTE | 2020-03-01 07:44 | CCN ---
CRITICAL CARE NOTE DATE: 02/29/2020 SUBJECTIVE: I was called to the emergency department to evaluate this 39-year-old male unresponsive with seizures. He has had multiple seizures prior to admission to the hospital and on arrival his [place] Coma Scale calculated at 3. In the emergency department, respiratory depression was appreciated and an endotracheal tube was placed and on my arrival he is still having active seizure activity. Medications are being prepared. On brief review of his electronic medical record there is a past history of a seizure disorder. The etiology is not clearly identified but apparently he has been noncompliant in the past. He also suffers from multiple sclerosis. OBJECTIVE: At bedside his temperature is 98, pulse rate 87, respirations 18 over 18 delivered, blood pressure 145/69. HEENT: He is atraumatic. His pupils are equal at about 4 mm and do respond, albeit sluggishly. There is no air leak around the endotracheal tube which is in good position at 23 cm. Orogastric is in good place. Neck is supple. There is no meningismus. Heart sounds are regular. Breath sounds are diminished with scattered rhonchi. Abdomen is soft. Extremities show no edema. Pulses are appreciated in all four extremities and he is sedated at this point with Propofol. DIAGNOSTIC STUDIES: His white cell count is 15, hemoglobin 14.2, hematocrit 44.8, platelet count 211,000. Differential white cell count shows 86% neutrophils. Chemistries are pending. The toxicology is also pending. Earlier toxicology showed positive for benzodiazepines and cannabis. An arterial blood gas showed a pH of 7.26, pCO2 55, pO2 91. Chest x-ray shows no infiltrates. ASSESSMENT AND PLAN: 1. The primary problem requiring critical attention is acute respiratory failure secondary to active seizure activity. An endotracheal tube has been placed. We will initiate mechanical ventilation and provide sedation with Propofol. 2. Status epilepsy. Neurology has been consulted and medications have been ordered. 3. Poor venous access. The nurses are unable to establish stable IV sites and to draw blood. Given that the patient requires critical medications for active seizure, we will place a central line. 4. The case was discussed with the ER attending staff and admitting service. Neurology has been consulted and is actively involved in the patient's care at this point. I will communicate the patient's status to the Intensive Care team and facilitate transfer at this point. The patient's condition is critical. Prognosis is guarded and 137 minutes were spent in the provision of bedside critical care and coordination exclusive of any procedure time. MTDD
--- NOTE | 2020-03-01 07:46 | REP ---
INDICATION: ett COMPARISON: 02/29/2020 TECHNIQUE: Portable AP view of the chest FINDINGS: Endotracheal tube 2 cm above the harpreet. Nasogastric tube extends below the left hemidiaphragm in stable position. Right subclavian catheter with tip in the right atrium in stable position. The mediastinum and cardiac silhouette are stable and within normal limits for portable technique. The lung mitchell demonstrate minimal left basilar atelectasis similar to prior examination. No new focal consolidation, effusion, or pneumothorax. Skeletal structures are intact. IMPRESSION: Lines and tubes in stable satisfactory position. Left lower lobe atelectasis similar to prior examination. No new acute process appreciated. <Electronically signed by Guru Us > 03/01/20 0749
[2020-03-01 08:00] LABS: HEP C VIRUS AB INDEX SOURCE PT 0.1 INDEX (0.0-0.8); HIV SCREEN CENTAUR SOURCE NEGATIVE (NEGATIVE)
--- NOTE | 2020-03-01 08:09 | RO ---
OPERATIVE NOTE DATE OF OPERATION: 03/01/2020 PREOPERATIVE DIAGNOSIS: Insufficient venous access. POSTOPERATIVE DIAGNOSIS: Insufficient venous access. PROCEDURE: Right subclavian CVP placement. INDICATIONS FOR PROCEDURE: The patient was seen in the emergency department critically ill, actively seizing, with unstable venous access. Critical medications were needed and central venous access was felt emergently necessary. DESCRIPTION OF PROCEDURE: The skin overlying the right subclavian vein was prepped with ChloraPrep and draped in a sterile fashion. A 25-gauge needle was used to raise the skin wheel with 1% Lidocaine. Thereafter, a 17-gauge introducer needle was placed in through the skin and into the right subclavian vein. When return of venous blood was obtained, a vascular tip guidewire was advanced. A small incision was made adjacent to the guidewire and a triple lumen catheter placed over the guidewire and into the right subclavian vein. The catheter was sewn in place and a sterile dressing was applied. A postprocedural chest x-ray is pending. There were no complications.
[2020-03-01] MEDS: CHLORHEXIDINE GLUCONATE 0.12 % 15ML UDC (PERIDEX ORAL RINSE) MT SCH ×2 (08:51→19:56)
[2020-03-01] MEDS: ENOXAPARIN 40MG/0.4ML SYRINGE (J1650 PER 10MG) SC SCH (08:51)
[2020-03-01] MEDS: DOCUSATE SODIUM 100MG CAPSULE PO SCH ×2 (08:51→19:57)
[2020-03-01] MEDS ORDERED: propofoL 1,000 MG in IV 1 EA IV SCH (09:00)
--- NOTE | 2020-03-01 11:53 | IPNPDOC ---
Date Seen The patient was seen on 03/01/20. Progress Note STATUS EPILEPTICUS PLAN: PER DR HOGAN, CONTINUE ON VIMPAT 200MG IV BID AND DEPACON 500 MG IV BID. VS, I&O, 24H, Fishbone Vital Signs/I&O Vital Signs Date Time Temp Pulse Resp B/P (MAP) Pulse Ox O2 Delivery O2 Flow Rate FiO2 03/01/20 11:00 92 24 141/79 (99) 97 03/01/20 10:00 Ventilator 40 03/01/20 08:00 100.3 02/29/20 20:10 4.0 I&O- Last 24 Hours up to 6 AM 03/01/20 06:00 Intake Total 860 ml Output Total 2300 ml Balance -1440 ml Laboratory Data 24H LABS Laboratory Tests 2 02/29/20 21:32: Blood Gas Bicarbonate Standard 21.7L, Arterial Blood pH 7.267L, Arterial Blood Partial Pressure CO2 55.1H, Arterial Blood Partial Pressure O2 91.9, Arterial Blood Total CO2 26.3, Arterial Blood HCO3 24.6, Arterial Blood Base Excess - 3.3L, Arterial Blood Oxygen Saturation 95.6 02/29/20 22:02: Urine Opiates Screen NEGATIVE, Urine Methadone Screen NEGATIVE, Urine Barbiturates Screen NEGATIVE, Urine Phencyclidine Screen NEGATIVE, Urine Amphetamines Screen NEGATIVE, Urine Benzodiazepines Screen POSITIVEH, Urine Cocaine Metabolite Screen NEGATIVE, Urine Cannabinoids Screen POSITIVEH 02/29/20 22:48: Immature Granulocyte % (Auto) 0.5, Neutrophils (%) (Auto) 86.7H, Lymphocytes (%) (Auto) 4.8L, Monocytes (%) (Auto) 7.7H, Eosinophils (%) (Auto) 0.0, Basophils (%) (Auto) 0.3, Neutrophils # (Auto) 13.0H, Lymphocytes # (Auto) 0.7L, Monocytes # (Auto) 1.2H, Eosinophils # (Auto) 0.0, Basophils # (Auto) 0.1, Nucleated Red Blood Cells % (auto) 0.0, Anion Gap 4L, Glomerular Filtration Rate > 60.0, Calcium Level 8.2L, Total Creatine Kinase 583H, Salicylates Level 4.3L, Acetaminophen Level < 2.0L, Valproic Acid (Depakene) Level 37.9L, Ethyl Alcohol Level < 0.003 02/29/20 23:17: Blood Gas Bicarbonate Standard 24.6, Arterial Blood pH 7.359, Arterial Blood Partial Pressure CO2 47.4H, Arterial Blood Partial Pressure O2 187.7H, Arterial Blood Total CO2 27.6, Arterial Blood HCO3 26.1H, Arterial Blood Base Excess 0.1, Arterial Blood Oxygen Saturation 98.4 03/01/20 05:35: Blood Gas Bicarbonate Standard 22.4, Arterial Blood pH 7.425, Arterial Blood Pa rtial Pressure CO2 32.6L, Arterial Blood Partial Pressure O2 114.4H, Arterial Blood Total CO2 21.9L, Arterial Blood HCO3 20.9L, Arterial Blood Base Excess - 2.5L, Arterial Blood Oxygen Saturation 97.4 03/01/20 06:22: Immature Granulocyte % (Auto) 0.4, Neutrophils (%) (Auto) 76.0H, Lymphocytes (%) (Auto) 12.2L, Monocytes (%) (Auto) 11.0H, Eosinophils (%) (Auto) 0.1, Basophils (%) (Auto) 0.3, Neutrophils # (Auto) 10.2H, Lymphocytes # (Auto) 1.6, Monocytes # (Auto) 1.5H, Eosinophils # (Auto) 0.0, Basophils # (Auto) 0.0, Nucleated Red Blood Cells % (auto) 0.0, Urine Color STRAW, Urine Appearance CLEAR, Urine pH 6.0, Urine Specific [place] 1.003, Urine Protein NEGATIVE, Urine Glucose (UA) NEGATIVE, Urine Ketones TRACEH, Urine Blood 3+H, Urine Nitrite NEGATIVE, Urine Bilirubin NEGATIVE, Urine Urobilinogen 0.2, Urine Leukocyte Esterase NEGATIVE, Urine WBC (Auto) 2, Urine RBC (Auto) 7H, Urine Hyaline Casts (Auto) 0, Urine Bacteria (Auto) 1+H, Urine Squamous Epithelial Cells 0, Urine Sperm (Auto) , Anion Gap 5L, Glomerular Filtration Rate > 60.0, Lactic Acid Level 0.7, Calcium Level 8.3L, Magnesium Level 2.4, Total Bilirubin 0.4, Aspartate Amino Transf (AST/SGOT) 26, Alanine Aminotransferase (ALT/SGPT) 33, Alkaline Phosphatase 46, Total Creatine Kinase 766H, Total Protein 6.7, Albumin 3.6, Albumin/Globulin Ratio 1.2, Procalcitonin 0.39, Hepatitis B Surface Antigen NEGATIVE, Hepatitis C Antibody Index 0.1, HIV Antigen/Antibody Combo Qual NEGATIVE CBC/BMP Laboratory Tests 02/29/20 22:48 03/01/20 06:22 Microbiology Microbiology 03/01/20 Blood Culture, Received Pending 03/01/20 Blood Culture, Received Pending 02/29/20 Respiratory Virus Panel (PCR) ([facility]) - Final, Complete MICHELLE MAURO MD Mar 01, 2020 11:53
[2020-03-01] MEDS: VALPROATE SOD INJ 500 MG in D5W 50 ML IV SCH (12:48)
[2020-03-01] MEDS: LACOSAMIDE 10MG/ML 20ML VIAL (VIMPAT) IV SCH (13:56)
--- NOTE | 2020-03-01 14:21 | CCN ---
CRITICAL CARE NOTE DATE: 03/01/2020 The patient is seen in the intensive care unit, intubated and mechanically ventilated, critically ill, a 39-year-old with status epilepticus, resulting in respiratory failure. When not deeply sedated he becomes combative, and there is some question of persistent seizure activity. At bedside his temperature is 100.3, pulse rate 101, respirations 25/22 delivered, blood pressure 157/75, saturation is 98% on 40% FiO2. Intake and output for the past 24 hours are 720 in, 2460 out. He is ill appearing. His endotracheal tube is in good position. Orogastric tube is in good position, draining bilious fluid. Neck is supple. No meningismus. Pupils are mid plane. Do respond to light. Heart sounds regular without appreciable murmur. Breath sounds mildly coarse in the bases. Chest is symmetric. Moves symmetrically. There is a subclavian catheter in the right side. Site is clean. Abdomen is soft with intact bowel sounds. Extremities show no significant edema. DIAGNOSTIC STUDIES: His white cell count is down slightly at 13.5, hemoglobin is stable at 14.1, hematocrit 44.9, platelet count is 211,000. The differential white cell count shows 76% neutrophils. Electrolytes are sodium 142, potassium 3.9, chloride 110, CO2 of 27, BUN 10, creatinine 0.94, glucose 98. His calcium is 8.3. AST 26, ALT 33. CPK 766. Arterial blood gases show a pH 7.42, pCO2 of 32, paO2 of 114 on mechanical ventilation IMV pressure support mode with 40% oxygen. Imaging studies were reviewed. Chest x-ray shows tubes and lines in good position. There is some atelectasis in the bases. The primary problem requiring critical attention is acute respiratory failure. Arterial blood gases are acceptable. We will continue with mechanical ventilatory support, follow gas exchange. Status epilepsy. We are awaiting neurologic evaluation and will continue to observe for active seizure activity. Deep venous thrombosis (DVT) prophylaxis is in place with Lovenox. Ulcer prophylaxis is in place with Protonix. Nutritional support will need to be considered if the patient is unable to wean in the next 24 hours. I have discussed the case with the intensive care unit (ICU) staff and care team. His condition is critical. Prognosis is guarded. There was 77 minutes spent in the provision of bedside critical care and coordination, exclusive of any procedure time.
[2020-03-01] MEDS ORDERED: propofoL 2,400 MG in IV 1 EA IV SCH ×2 (14:30→21:12)
[2020-03-01] MEDS ORDERED: PROPOFOL 1,000 MG/100 ML VIAL As Ordered ONE (14:40)
[2020-03-01] MEDS: propofoL 2,400 MG in IV 1 EA IV SCH ×2 (16:09→19:59)
[2020-03-01] MEDS ORDERED: LACOSAMIDE 10MG/ML 20ML VIAL (VIMPAT) IV SCH (21:00)
--- NOTE | 2020-03-01 21:33 | ECGEPIP ---
[facility] - ED Test Date: 2020-02-29 Pat Name: BROOKE RILEY Department: Room: [place] [id number] Gender: Male [employer]: ROSS : 1980 Requested By: Clark Richardson Order Number: [id number] Reading MD: Clark Sims Measurements Intervals [place] Rate: 119 P: 55 PA: 144 QRS: 66 QRSD: 97 T: 42 QT: 283 QTc: 399 Interpretive Statements SINUS TACHYCARDIA ABNORMAL RHYTHM ECG RATE CHANGE COMPARED TO 05/05/19 Electronically Signed on 03-01-2020 21:33:17 EST by Clark Sims
[2020-03-02] VITALS (19 sets, daily range): BP systolic 111–154; BP diastolic 56–87; O2SAT 95
[2020-03-02] MEDS: propofoL 2,400 MG in IV 1 EA IV SCH ×4 (00:35→13:16)
[2020-03-02] MEDS: MIDAZOLAM INJ 2MG/2ML VIAL (J2250 PER 1MG) IV PRN ×5 (00:35→09:27)
[2020-03-02] MEDS: LACOSAMIDE 10MG/ML 20ML VIAL (VIMPAT) IV SCH ×2 (01:24→13:56)
[2020-03-02] MEDS: NS 1,000 ML IV SCH ×2 (01:55→13:35)
[2020-03-02] MEDS: VALPROATE SOD INJ 500 MG in D5W 50 ML IV SCH ×2 (01:55→13:31)
[2020-03-02 05:19] LABS: HEMATOCRIT 40.3 % (42.0-52.0); HEMOGLOBIN 12.7 g/dl (13.5-17.5); MEAN CORPUSCULAR HGB CONC 31.5 g/dl (32.0-36.5); PLATELET COUNT, AUTOMATED 174 10^3/uL (150-450); RED BLOOD COUNT 4.38 10^6/uL (4.30-6.10); WHITE BLOOD COUNT 11.8 10^3/uL (4.0-10.0)
[2020-03-02 05:20] LABS: ABG BASE EXCESS 0.7 (-2.0-2.0); ABG HCO3 26.2 MEQ/L (22.0-26.0); ABG O2 SATURATION 98.2 % (95.0-99.0); ABG PARTIAL PRESSURE CO2 45.5 mmHg (35.0-45.0); ABG PARTIAL PRESSURE O2 173.8 mmHg (75.0-100.0); ABG STANDARD HCO3 25.1 MEQ/L (22.0-26.0); ABG TOTAL CO2 27.6 MEQ/L (22.0-29.0); ABG pH (ARTERIAL) 7.378 UNITS (7.350-7.450)
[2020-03-02 05:50] LABS: ALBUMIN 2.9 GM/DL (3.2-5.2); ALT/SGPT 23 U/L (12-78); BILIRUBIN,TOTAL 0.3 MG/DL (0.2-1.0); BLOOD UREA NITROGEN 10 MG/DL (7-18); CALCIUM LEVEL 7.5 MG/DL (8.5-10.1); CARBON DIOXIDE LEVEL 31 MEQ/L (21-32); CHLORIDE LEVEL 112 MEQ/L (98-107); CHOLESTEROL LEVEL 180 MG/DL (< 200); CPK CREATINE PHOSPHOKINASE 426 U/L (39-308); CREATININE FOR GFR 0.88 MG/DL (0.70-1.30); GLOMERULAR FILTRATION RATE > 60.0 (>60); GLUCOSE, FASTING 96 MG/DL (70-100); LDH LACTATE DEHYDROGENASE 215 U/L (87-241); PHOSPHORUS LEVEL 3.8 MG/DL (2.5-4.9); POTASSIUM SERUM 3.9 MEQ/L (3.5-5.1); SODIUM LEVEL 145 MEQ/L (136-145); TOTAL PROTEIN 5.7 GM/DL (6.4-8.2); TRIGLYCERIDES LEVEL 366 MG/DL (<150)
--- NOTE | 2020-03-02 07:48 | REP ---
INDICATION: ett COMPARISON: 03/01/2020 TECHNIQUE: Portable AP view of the chest FINDINGS: Endotracheal tube appears to be at the level of the harpreet and warrants re-evaluation. Nasogastric tube in satisfactory position below the left hemidiaphragm. Right central line with tip in the right atrium. The mediastinum and cardiac silhouette are stable and within normal limits for portable technique. The lung mitchell demonstrate small left perihilar and lower lobe opacity. No effusion. No pneumothorax. Skeletal structures intact. IMPRESSION: 1. Endotracheal tube appears to be at the level of the harpreet and warrants re-evaluation. 2. Left perihilar and left lower lobe airspace disease. <Electronically signed by Guru Us > 03/02/20 0783
[2020-03-02] MEDS: IPRATROPIUM 0.5MG/ALBUTEROL 2.5MG INH SOL UD 3ML (DUONEB) NEB SCH ×4 (08:05→20:27)
[2020-03-02] MEDS: DOCUSATE SODIUM 100MG CAPSULE PO SCH ×2 (09:00→20:10)
[2020-03-02] MEDS ORDERED: NON-FORMULARY 1 EA EA NG SCH (09:00)
[2020-03-02] MEDS: ENOXAPARIN 40MG/0.4ML SYRINGE (J1650 PER 10MG) SC SCH (09:01)
[2020-03-02] MEDS: CHLORHEXIDINE GLUCONATE 0.12 % 15ML UDC (PERIDEX ORAL RINSE) MT SCH (09:01)
[2020-03-02] MEDS: AUBAGIO 14 MG PO SCH (09:02)
[2020-03-02] MEDS: propofoL 1,000 MG in IV 1 EA IV SCH (09:33)
--- NOTE | 2020-03-02 11:49 | IPNPDOC ---
Date Seen The patient was seen on 03/02/20. Progress Note SUBJECTIVE: No fevers. Vital signs stable per nursing, patient remains intubated and sedated. Review of system could not be obtained OBJECTIVE PHYSICAL EXAMINATION: VITAL SIGNS: Please see below. GENERAL: Sedated HEENT: No JVD, intubated with endotracheal and orogastric tube CARDIOVASCULAR: S1, S2, sinus rhythm RESPIRATORY: Diminished but clear to auscultation. No wheezing or rales ABDOMINAL: Soft nontender nondistended positive bowel sounds 4 quadrants. No rebound or guarding EXTREMITIES: No pitting edema LABORATORY DATA, IMAGING STUDIES, MICROBIOLOGY: Please see below. ASSESSMENT AND PLAN: 39-year-old with history of multiple sclerosis and seizure disorder, admitted due to status epilepticus, status post niclosamide 400 mg IV, Versed 5 mg, valproic acid, and propofol currently managed by critical care and remains intubated with mechanical ventilation. PROBLEMS: Status epilepticus -Currently on Vimpat and Depacon per neurology recommendations. Dr. Plata has been consulted. Patient remains sedated on mechanical ventilation management by hand woven carpet and rug mender. -Currently in IV fluids -Nutrition consult for tube feeds Multiple sclerosis -Neurology has been consulted. Dr. Cruz Diet nothing by mouth on IV fluids CODE STATUS full code VS, I&O, 24H, Fishbone Vital Signs/I&O Vital Signs Date Time Temp Pulse Resp B/P (MAP) Pulse Ox O2 Delivery O2 Flow Rate FiO2 03/02/20 11:00 98.2 82 21 126/71 (89) 97 Ventilator 40 02/29/20 20:10 4.0 I&O- Last 24 Hours up to 6 AM 03/02/20 06:00 Intake Total 4362.4 ml Output Total 2125 ml Balance 2237.4 ml Laboratory Data 24H LABS Laboratory Tests 2 03/01/20 22:58: Bedside Glucose (Misc Panel) 100 03/02/20 05:00: Nucleated Red Blood Cells % (auto) 0.0, Anion Gap 2L, Glomerular Filtration Rate > 60.0, Calcium Level 7.5L, Phosphorus Level 3.8, Total Bilirubin 0.3, Aspartate Amino Transf (AST/SGOT) 15, Alanine Aminotransferase (ALT/SGPT) 23, Alkaline Phosphatase 36L, Lactate Dehydrogenase 215, Total Creatine Kinase 426H, Total Protein 5.7L, Albumin 2.9L, Albumin/Globulin Ratio 1.0, Triglycerides Level 366H, Cholesterol Level 180 03/02/20 05:09: Blood Gas Bicarbonate Standard 25.1, Arterial Blood pH 7.378, Arterial Blood Partial Pressure CO2 45.5H, Arterial Blood Partial Pressure O2 173.8H, Arterial Blood Total CO2 27.6, Arterial Blood HCO3 26.2H, Arterial Blood Base Excess 0.7, Arterial Blood Oxygen Saturation 98.2 CBC/BMP Laboratory Tests 03/02/20 05:00 Microbiology Microbiology 03/01/20 Blood Culture - Preliminary, Resulted No growth after 24 hours . All specim... 03/01/20 Blood Culture - Preliminary, Resulted No growth after 24 hours . All specim... 02/29/20 Respiratory Virus Panel (PCR) ([facility]) - Final, Complete MICHELLE MAURO MD Mar 02, 2020 11:49
--- NOTE | 2020-03-02 15:17 | CCN ---
CRITICAL CARE NOTE DATE: 03/02/2020 SUBJECTIVE: The patient is seen in intensive care unit intubated, mechanically ventilated, sedate with propofol, and critically ill. There has been no further seizure activity and he has been fully loaded on antiepileptic therapy. OBJECTIVE: VITAL SIGNS: At bedside, his temperature is 98.2, pulse rate 80, respirations 21, blood pressure 126/71. INTAKE AND OUTPUT: For the past 24 hours 3959 in and 3920 out; since midnight 2218 in and 925 out. At bedside, he is sedate and responds when propofol is weaned with good respiratory effort and no distress. HEENT: His endotracheal tube is 24 cm. Orogastric tube is in good position draining bilious material. NECK: Supple without meningismus. There is no stridor. HEART: Sounds are regular without appreciable murmur. RESPIRATORY: Breath sounds are clear of auscultation in all mitchell. ABDOMEN: Soft with intact bowel sounds. EXTREMITIES: No edema. Pulses are palpable. Motor tone seems normal. DIAGNOSTIC STUDIES: Sodium is 145, potassium 3.9, chloride 112, CO2 of 31, BUN 10, creatinine 0.88, glucose 96. White cell count is down to 11.8, hemoglobin 12.7, platelet count 174,000. Arterial blood gases were drawn and show a pH of 7.37, pCO2 of 45, pO2 of 173 and this is on an IMV mode of ventilation. Chest x-ray was reviewed and is clear. MEDICATIONS: I have reviewed his medication list. ASSESSMENT AND PLAN: The primarily problem requiring critical attention is acute respiratory failure secondary to status epilepticus. The patient has been seizure free for 24 hours. We will proceed with weaning and extubation pending his response to the weaning protocol. As there has been no further seizure activity, he appears to be tolerating his antiepileptic therapy well. CRITICAL CARE TIME: 72 minutes was spent in the provision of bedside critical care and coordination, excluding procedure time.
[2020-03-02] MEDS: DIVALPROEX 500 MG TAB PO SCH (20:10)
[2020-03-02] MEDS: LACOSAMIDE 50 MG TAB (VIMPAT) PO SCH (20:10)
[2020-03-03 04:00] VITALS: BP 155/79
[2020-03-03 08:01] VITALS: BP 157/74
[2020-03-03] MEDS: LACOSAMIDE 50 MG TAB (VIMPAT) PO SCH (08:12)
[2020-03-03] MEDS: DIVALPROEX 500 MG TAB PO SCH (08:12)
[2020-03-03] MEDS: AUBAGIO 14 MG PO SCH (08:12)
[2020-03-03] MEDS: ENOXAPARIN 40MG/0.4ML SYRINGE (J1650 PER 10MG) SC SCH (08:13)
[2020-03-03] MEDS: DOCUSATE SODIUM 100MG CAPSULE PO SCH (08:13)
[2020-03-03] MEDS: IPRATROPIUM 0.5MG/ALBUTEROL 2.5MG INH SOL UD 3ML (DUONEB) NEB SCH (08:21)
--- NOTE | 2020-03-03 12:23 | DS.PDOC ---
Discharge Summary General Date of Admission Mar 01, 2020 at 00:06 Date of Discharge 03/03/20 Discharge Summary [employer] SUPERVISOR: DR. GARY DISCHARGE DIAGNOSES: medical noncompliance with antiseizure medications status epilepticus requiring intubation and mechanical ventilation 03/01/20 to 03/02/20. seizure disorder multiple sclerosis DISCHARGE MEDICATIONS: see below DISCHARGE INSTRUCTIONS: Neurologist and PCP fu appt within 5 days. Pt's significant other or Mother to supervise BID dosing of antiseizure medications to prevent noncompliance with medications. HOSPITAL COURSE: 39-year-old with history of multiple sclerosis and seizure disorder, admitted due to status epilepticus, status post niclosamide 400 mg IV, Versed 5 mg, valproic acid, and propofol admitted on 03/01/20 for status epilepticus due to medical noncompliance with medications and intubated and mechanically ventilated . Status epilepticus -intubated and mechanically ventilated for acute hypoxic respiratory failure by pulm Dr. Gary -given iv Vimpat and Depacon per neurology recommendations. -Dr. Cruz has been consulted. -s/p iV fluids while npo w og tube, but after extubation , tolerated clears advanced to regular diet without signs of aspiration -DVT and gi prophylaxis given Multiple sclerosis -resumed on home meds DISCHARGE PHYSICAL EXAMINATION: VITAL SIGNS: Please see below. GENERAL: aaox 3 no distress speaking in full sentences no hoarse voice HEENT: No JVD EOMI no stridor trachea is midline CARDIOVASCULAR: S1, S2, sinus rhythm RESPIRATORY: Diminished but clear to auscultation. No wheezing or rales ABDOMINAL: Soft nontender nondistended positive bowel sounds 4 quadrants. No rebound or guarding EXTREMITIES: No pitting edema LABORATORY DATA, IMAGING STUDIES, MICROBIOLOGY: Please see below. TIME SPENT ON DISCHARGE: 30 MIN Vital Signs/I&Os Vital Signs Date Time Temp Pulse Resp B/P (MAP) Pulse Ox O2 Delivery O2 Flow Rate FiO2 03/03/20 08:01 97.6 84 18 157/74 (101) 96 Room Air 03/02/20 13:00 40 02/29/20 20:10 4.0 I&O- Last 24 Hours up to 6 AM 03/03/20 06:00 Intake Total 1885.2 ml Output Total 1970 ml Balance -84.8 ml Microbiology Microbiology 03/03/20 Gram Stain - Final, Resulted 03/03/20 Sputum Culture, Resulted Pending 03/01/20 Blood Culture - Preliminary, Resulted No Growth after 48 hours. All Specime... 03/01/20 Blood Culture - Preliminary, Resulted No Growth after 48 hours. All Specime... 02/29/20 Respiratory Virus Panel (PCR) ([facility]) - Final, Complete Discharge Medications Scheduled Cholecalciferol (Vitamin D3) (Vitamin D3) 1,000 Unit Tablet, 2,000 UNITS PO DAILY, (Reported) Divalproex Sodium (Divalproex Sodium) 500 Mg Tablet.dr, 500 MG PO BID, (Reported) TAKES WITH 250MG FOR 750MG TOTAL Divalproex Sodium (Divalproex Sodium) 250 Mg Tablet.dr, 250 MG PO BID, (Reported) TAKES WITH 500MG FOR 750MG TOTAL Lacosamide (Vimpat) 200 Mg Tablet, 200 MG PO BID, (Reported) Teriflunomide (Aubagio) 14 Mg Tablet, 14 MG PO DAILY, (Reported) Miscellaneous Medications [Patient Comment] , (Reported) MED REC COMPLETED VIA EXTERNAL MED HISTORY AND CALL TO PHARMACY Allergies Coded Allergies: No Known Allergies (Verified , 05/05/19) MICHELLE MAURO MD Mar 03, 2020 12:18
--- NOTE | 2020-03-03 16:27 | CR ---
CONSULTATION DATE: 03/01/2020 CONSULTING PHYSICIAN: Dr. Dana Qureshi REASON FOR CONSULTATION: Status epilepticus. HISTORY OF PRESENT ILLNESS: Sergei Hernández is a 39-year-old man with a history of multiple sclerosis, seizures, and noncompliance with medications. He has had numerous admissions for seizures, requiring intubations over last couple of years. He was last hospitalized in August 2019 and was intubated for seizures and inability to protect airway. He was brought to [facility] due to generalized tonic/clonic seizures and was unable to protect his airway and was intubated. Patient was loaded with Depacon and intravenous Vimpat at the time of his admission, and we continued him on Depacon and Vimpat twice a day. He remains intubated, unresponsive, sedated, on mechanical ventilation currently. MEDICAL HISTORY: 1. Multiple sclerosis. 2. Generalized tonic/clonic seizures. 3. Right ankle open reduction, internal fixation (ORIF). 4. Tonsillectomy. 5. Left hip fracture. SOCIAL HISTORY: He uses marijuana and drinks alcohol socially. He smokes one pack per day. FAMILY HISTORY: Mother with history of hypertension. REVIEW OF SYSTEMS: Could not be obtained. ALLERGIES: No known drug allergies. HOME MEDICATIONS : - Depakote 750 mg by mouth twice a day - Vimpat 200 mg by mouth twice a day - Aubagio 14 mg by mouth daily - vitamin D3 at 1000 units two tablets by mouth daily PHYSICAL EXAMINATION: Blood pressure 127/61, pulse 90, respiratory rate 24, saturations 92% on mechanical ventilation. HEART: Regular rate and rhythm. LUNGS: Clear to auscultation. ABDOMEN: Soft, nontender, nondistended. No pedal edema. No musculoskeletal abnormalities. No rash or signs of meningeal irritation. Patient is intubated on mechanical ventilation and sedation. Pupils are 6 mm bilaterally. They are reactive to light. He has positive gag and corneal reflexes. Facial and limb sensation, strength, coordination could not be tested. Deep tendon reflexes are mute. Plantars are mute. He does not withdraw to pain or sternal rub. DIAGNOSTIC STUDIES: Urine was positive for benzodiazepines and cannabis. CBC showed WBC 13.5 with normal metabolic profile. ASSESSMENT: 1. Generalized tonic/clonic seizures with noncompliance to medications. 2. Multiple sclerosis. 3. Continue Depakote 500 mg intravenous (IV) twice a day and Vimpat 200 mg IV twice a day. 4. Once patient is extubated, he should be increased on is Depakote to 750 mg by mouth twice a day, which was his outpatient dose, and Vimpat 200 mg by mouth twice a day. 5. I had a detailed discussion about patient's care with patient's mother. She did not know why patient is not compliant with his medications. 6. Check Depakote and Vimpat level in the morning. 7. [place] State rules and regulations should apply, and he should not be driving for 6 months, according to state law. 8. Followup with Lynette Bajwa in our office in couple of weeks after hospital discharge.
== END 2020-03-03 09:52 | disposition home or self-care (01) | DRG 53 ==
LOC: M ED 20:00 → M ED INP 03-01 00:06 → M PCU 03-01 01:40
PROVIDERS: ADMIT Family Medicine; ATTEND General Practice
PROC: 02H633Z Insertion of Infusion Device into Right Atrium, Percutaneous Approach (ICD-10-PCS; principal; 2020-03-01)
PROC: 5A1945Z Respiratory Ventilation, 24-96 Consecutive Hours (ICD-10-PCS; 2020-03-01)
PROC: 0BH17EZ Insertion of Endotracheal Airway into Trachea, Via Natural or Artificial Opening (ICD-10-PCS; 2020-03-01)
DX: G40.401 Other generalized epilepsy and epileptic syndromes, not intractable, with status epilepticus (principal); J96.01 Acute respiratory failure with hypoxia; G35 Multiple sclerosis; F17.200 Nicotine dependence, unspecified, uncomplicated; Z91.14 Patient's other noncompliance with medication regimen; Z79.899 Other long term (current) drug therapy; Z87.81 Personal history of (healed) traumatic fracture

== ENCOUNTER → 2020-07-05 | Outpatient (REF) | payer OTHER ==
[~2020-07-05] MED LIST changes: +DIVA250T67 PO; +PATIENT COMMENT; +VIMP200T PO
[2020-07-05 13:47] LABS: HEMATOCRIT 50.3 % (42.0-52.0); MEAN CORPUSCULAR HEMOGLOBIN 29.1 pg (27.0-33.0); MEAN CORPUSCULAR HGB CONC 31.8 g/dl (32.0-36.5); MEAN CORPUSCULAR VOLUME 91.6 fl (80.0-96.0); PLATELET COUNT, AUTOMATED 205 10^3/uL (150-450); RED BLOOD COUNT 5.49 10^6/uL (4.30-6.10); WHITE BLOOD COUNT 8.8 10^3/uL (4.0-10.0)
[2020-07-05 14:07] LABS: HEMOGLOBIN A1c 5.3 %
[2020-07-05 14:14] LABS: ALBUMIN 3.9 GM/DL (3.2-5.2); ALT/SGPT 26 U/L (12-78); BILIRUBIN,TOTAL 0.4 MG/DL (0.2-1.0); BLOOD UREA NITROGEN 13 MG/DL (7-18); CALCIUM LEVEL 9.7 MG/DL (8.5-10.1); CARBON DIOXIDE LEVEL 29 MEQ/L (21-32); CHLORIDE LEVEL 105 MEQ/L (98-107); CHOLESTEROL LEVEL 215 MG/DL (<200); CHOLESTEROL RISK RATIO 4.387 (<5); CREATININE FOR GFR 0.87 MG/DL (0.70-1.30); GLOMERULAR FILTRATION RATE > 60.0 (>60); GLUCOSE, FASTING 89 MG/DL (70-100); HDL CHOLESTEROL 49 MG/DL (>40); LDL CHOLESTEROL 143 MG/DL (<100); NON-HDL-C 166 MG/DL; POTASSIUM SERUM 4.6 MEQ/L (3.5-5.1); SODIUM LEVEL 138 MEQ/L (136-145); TOTAL PROTEIN 7.7 GM/DL (6.4-8.2); TRIGLYCERIDES LEVEL 117 MG/DL (<150)
== END ==
LOC: M SFHCPLAZ 09:58
PROVIDERS: ATTEND Family Medicine
DX: Z13.1 Encounter for screening for diabetes mellitus (principal); Z13.220 Encounter for screening for lipoid disorders; F17.200 Nicotine dependence, unspecified, uncomplicated; R60.9 Edema, unspecified

== ENCOUNTER → 2020-07-05 | Outpatient (CLI) | payer OTHER ==
[2020-07-05 13:37] LABS: BASO # 0.1 10^3/uL (0.0-0.2); BASO % 0.9 % (0.0-1.0); EOS # 0.2 10^3/uL (0.0-0.5); EOS % 2.2 % (0.0-3.0); HEMATOCRIT 50.1 % (42.0-52.0); HEMOGLOBIN 15.9 g/dl (13.5-17.5); LYMPH # 2.9 10^3/uL (1.5-5.0); LYMPH % 33.5 % (24.0-44.0); MEAN CORPUSCULAR HEMOGLOBIN 29.1 pg (27.0-33.0); MEAN CORPUSCULAR HGB CONC 31.7 g/dl (32.0-36.5); MEAN CORPUSCULAR VOLUME 91.8 fl (80.0-96.0); MONO # 1.1 10^3/uL (0.0-0.8); MONO % 12.4 % (2.0-8.0); NEUTROPHILS # 4.5 10^3/uL (1.5-8.5); NEUTROPHILS % 50.8 % (36.0-66.0); PLATELET COUNT, AUTOMATED 208 10^3/uL (150-450); RED BLOOD COUNT 5.46 10^6/uL (4.30-6.10); WHITE BLOOD COUNT 8.8 10^3/uL (4.0-10.0)
[2020-07-05 14:16] LABS: ALT/SGPT 27 U/L (12-78); BILIRUBIN,TOTAL 0.3 MG/DL (0.2-1.0); BLOOD UREA NITROGEN 13 MG/DL (7-18); CALCIUM LEVEL 9.3 MG/DL (8.5-10.1); CARBON DIOXIDE LEVEL 27 MEQ/L (21-32); CHLORIDE LEVEL 106 MEQ/L (98-107); CREATININE FOR GFR 0.87 MG/DL (0.70-1.30); GLOMERULAR FILTRATION RATE > 60.0 (>60); GLUCOSE, FASTING 92 MG/DL (70-100); POTASSIUM SERUM 4.7 MEQ/L (3.5-5.1); SODIUM LEVEL 138 MEQ/L (136-145); TOTAL PROTEIN 7.5 GM/DL (6.4-8.2); VALPROIC ACID (DEPAKOTE) 107.6 UG/ML (50.0-100.0)
== END ==
LOC: M PLALAB 09:57
PROVIDERS: ATTEND Physician Assistant Medical
DX: R56.9 Unspecified convulsions (principal); R53.83 Other fatigue; G35 Multiple sclerosis

== ENCOUNTER → 2021-05-15 | Outpatient (CLI) | payer OTHER ==
[~2021-05-15] MED LIST changes: -D31000TA2 PO; +VITA100093 PO
[2021-05-15 15:42] LABS: BASO # 0.1 10^3/uL (0.0-0.2); BASO % 0.7 % (0.0-1.0); EOS # 0.1 10^3/uL (0.0-0.5); EOS % 0.4 % (0.0-3.0); HEMATOCRIT 51.7 % (42.0-52.0); LYMPH # 3.7 10^3/uL (1.5-5.0); LYMPH % 30.4 % (24.0-44.0); MEAN CORPUSCULAR HEMOGLOBIN 29.6 pg (27.0-33.0); MEAN CORPUSCULAR HGB CONC 32.9 g/dl (32.0-36.5); MEAN CORPUSCULAR VOLUME 89.9 fl (80.0-96.0); MONO # 1.3 10^3/uL (0.0-0.8); MONO % 10.3 % (2.0-8.0); NEUTROPHILS # 7.1 10^3/uL (1.5-8.5); NEUTROPHILS % 57.9 % (36.0-66.0); PLATELET COUNT, AUTOMATED 256 10^3/uL (150-450); RED BLOOD COUNT 5.75 10^6/uL (4.30-6.10); WHITE BLOOD COUNT 12.2 10^3/uL (4.0-10.0)
[2021-05-15 16:07] LABS: ALBUMIN 4.3 GM/DL (3.2-5.2); BILIRUBIN,DIRECT 0.2 MG/DL (0.0-0.2); BILIRUBIN,TOTAL 1.1 MG/DL (0.2-1.0)
== END ==
LOC: M PLALAB 13:39
PROVIDERS: ATTEND Student in an Organized Health Care Education/Training Program
DX: G35 Multiple sclerosis (principal)

== ENCOUNTER → 2021-05-15 | Outpatient (CLI) | payer OTHER ==
[2021-05-15 15:41] LABS: HEMATOCRIT 50.2 % (42.0-52.0); HEMOGLOBIN 16.8 g/dl (13.5-17.5); MEAN CORPUSCULAR HEMOGLOBIN 29.9 pg (27.0-33.0); MEAN CORPUSCULAR HGB CONC 33.5 g/dl (32.0-36.5); MEAN CORPUSCULAR VOLUME 89.3 fl (80.0-96.0); PLATELET COUNT, AUTOMATED 274 10^3/uL (150-450); RED BLOOD COUNT 5.62 10^6/uL (4.30-6.10); WHITE BLOOD COUNT 12.1 10^3/uL (4.0-10.0)
[2021-05-15 16:01] LABS: HEMOGLOBIN A1c 5.4 %
[2021-05-15 16:04] LABS: ALBUMIN 4.2 GM/DL (3.2-5.2); ALT/SGPT 147 U/L (12-78); BILIRUBIN,TOTAL 0.7 MG/DL (0.2-1.0); BLOOD UREA NITROGEN 15 MG/DL (7-18); CALCIUM LEVEL 10.2 MG/DL (8.5-10.1); CARBON DIOXIDE LEVEL 28 MEQ/L (21-32); CHLORIDE LEVEL 103 MEQ/L (98-107); CHOLESTEROL LEVEL 221 MG/DL (<200); CREATININE FOR GFR 1.06 MG/DL (0.70-1.30); GLOMERULAR FILTRATION RATE > 60.0 (>60); GLUCOSE, FASTING 78 MG/DL (70-100); HDL CHOLESTEROL 49 MG/DL (>40); LDL CHOLESTEROL 136 MG/DL (<100); NON-HDL-C 172 MG/DL; POTASSIUM SERUM 4.2 MEQ/L (3.5-5.1); SODIUM LEVEL 137 MEQ/L (136-145); TOTAL PROTEIN 7.9 GM/DL (6.4-8.2); TRIGLYCERIDES LEVEL 182 MG/DL (<150); VALPROIC ACID (DEPAKOTE) 100.7 UG/ML (50.0-100.0)
== END ==
LOC: M PLALAB 13:36
PROVIDERS: ATTEND Student in an Organized Health Care Education/Training Program
DX: Z00.00 Encounter for general adult medical examination without abnormal findings (principal)

== ENCOUNTER → 2021-05-28 | Outpatient (CLI) | payer OTHER ==
[2021-05-28 13:30] LABS: BASO # 0.1 10^3/uL (0.0-0.2); BASO % 0.6 % (0.0-1.0); EOS # 0.2 10^3/uL (0.0-0.5); EOS % 1.1 % (0.0-3.0); HEMATOCRIT 43.4 % (42.0-52.0); HEMOGLOBIN 14.3 g/dl (13.5-17.5); LYMPH # 2.8 10^3/uL (1.5-5.0); LYMPH % 19.9 % (24.0-44.0); MEAN CORPUSCULAR HEMOGLOBIN 30.2 pg (27.0-33.0); MEAN CORPUSCULAR HGB CONC 32.9 g/dl (32.0-36.5); MEAN CORPUSCULAR VOLUME 91.6 fl (80.0-96.0); MONO # 1.4 10^3/uL (0.0-0.8); MONO % 9.7 % (2.0-8.0); NEUTROPHILS # 9.5 10^3/uL (1.5-8.5); NEUTROPHILS % 68.3 % (36.0-66.0); PLATELET COUNT, AUTOMATED 285 10^3/uL (150-450); RED BLOOD COUNT 4.74 10^6/uL (4.30-6.10)
[2021-05-28 14:14] LABS: ALBUMIN 3.7 GM/DL (3.2-5.2); ALT/SGPT 38 U/L (12-78); BILIRUBIN,DIRECT < 0.1 MG/DL (0.0-0.2); BILIRUBIN,TOTAL 0.3 MG/DL (0.2-1.0); TESTOSTERONE 460 NG/DL (241-827); TOTAL PROTEIN 6.8 GM/DL (6.4-8.2)
== END ==
LOC: M PLALAB 10:46
PROVIDERS: ATTEND Student in an Organized Health Care Education/Training Program
DX: G35 Multiple sclerosis (principal)

== ENCOUNTER → 2022-04-01 | Outpatient (CLI) | payer OTHER ==
[~2022-04-01] MED LIST changes: -AUBA14TA PO; +TERI14TA PO
[2022-04-01 13:36] LABS: HEMATOCRIT 46.8 % (42.0-52.0); HEMOGLOBIN 15.6 g/dl (13.5-17.5); MEAN CORPUSCULAR HEMOGLOBIN 30.9 pg (27.0-33.0); MEAN CORPUSCULAR HGB CONC 33.3 g/dl (32.0-36.5); MEAN CORPUSCULAR VOLUME 92.7 fl (80.0-96.0); PLATELET COUNT, AUTOMATED 271 10^3/uL (150-450); RED BLOOD COUNT 5.05 10^6/uL (4.30-6.10); WHITE BLOOD COUNT 7.1 10^3/uL (4.0-10.0)
[2022-04-01 14:01] LABS: VALPROIC ACID (DEPAKOTE) 105.8 UG/ML (50.0-100.0)
[2022-04-01 14:03] LABS: ALBUMIN 4.4 G/DL (3.2-5.2); ALKALINE PHOSPHATASE 76 U/L (46-116); ALT/SGPT 25 U/L (7.0-40); AST/SGOT 19 U/L (<34); BILIRUBIN,TOTAL 0.4 MG/DL (0.3-1.2); BLOOD UREA NITROGEN 15 MG/DL (9-23); CALCIUM LEVEL 9.9 MG/DL (8.5-10.1); CARBON DIOXIDE LEVEL 28 MMOL/L (20-31); CHLORIDE LEVEL 105 MMOL/L (98-107); CREATININE FOR GFR 0.75 MG/DL (0.70-1.30); GLOMERULAR FILTRATION RATE > 60.0 (>60); GLUCOSE, FASTING 93 MG/DL (60-100); POTASSIUM SERUM 4.2 MMOL/L (3.5-5.1); SODIUM LEVEL 139 MMOL/L (136-145); TOTAL PROTEIN 7.5 G/DL (5.7-8.2)
== END ==
LOC: M PLALAB 09:47
PROVIDERS: ATTEND Student in an Organized Health Care Education/Training Program
DX: G35 Multiple sclerosis (principal)

== ENCOUNTER → 2023-01-20 | Outpatient (CLI) | payer OTHER ==
[2023-01-20 16:18] LABS: BASO # 0.1 10^3/uL (0.0-0.2); BASO % 0.7 % (0.0-1.0); EOS % 0.5 % (0.0-3.0); HEMATOCRIT 45.3 % (42.0-52.0); HEMOGLOBIN 15.3 g/dl (13.5-17.5); LYMPH % 22.9 % (24.0-44.0); MEAN CORPUSCULAR HEMOGLOBIN 31.2 pg (27.0-33.0); MEAN CORPUSCULAR HGB CONC 33.8 g/dl (32.0-36.5); MEAN CORPUSCULAR VOLUME 92.3 fl (80.0-96.0); MONO # 0.6 10^3/uL (0.0-0.8); MONO % 6.8 % (2.0-8.0); NEUTROPHILS # 6.1 10^3/uL (1.5-8.5); NEUTROPHILS % 68.9 % (36.0-66.0); PLATELET COUNT, AUTOMATED 280 10^3/uL (150-450); RED BLOOD COUNT 4.91 10^6/uL (4.30-6.10); WHITE BLOOD COUNT 8.8 10^3/uL (4.0-10.0)
[2023-01-20 16:36] LABS: ALBUMIN 4.1 G/DL (3.2-5.2); BILIRUBIN,DIRECT 0.2 MG/DL (<0.4); BILIRUBIN,TOTAL 0.5 MG/DL (0.3-1.2); TOTAL PROTEIN 7.4 G/DL (5.7-8.2)
== END ==
LOC: M PLALAB 14:45
PROVIDERS: ATTEND Student in an Organized Health Care Education/Training Program
DX: G35 Multiple sclerosis (principal)

== ENCOUNTER → 2023-01-20 | Outpatient (CLI) | payer OTHER ==
[2023-01-20 16:17] LABS: BASO # 0.1 10^3/uL (0.0-0.2); BASO % 0.6 % (0.0-1.0); EOS % 0.3 % (0.0-3.0); HEMATOCRIT 45.6 % (42.0-52.0); HEMOGLOBIN 15.4 g/dl (13.5-17.5); LYMPH % 23.5 % (24.0-44.0); MEAN CORPUSCULAR HEMOGLOBIN 30.7 pg (27.0-33.0); MEAN CORPUSCULAR HGB CONC 33.8 g/dl (32.0-36.5); MONO # 0.6 10^3/uL (0.0-0.8); MONO % 6.6 % (2.0-8.0); NEUTROPHILS # 5.9 10^3/uL (1.5-8.5); NEUTROPHILS % 68.7 % (36.0-66.0); PLATELET COUNT, AUTOMATED 285 10^3/uL (150-450); RED BLOOD COUNT 5.01 10^6/uL (4.30-6.10); WHITE BLOOD COUNT 8.7 10^3/uL (4.0-10.0)
[2023-01-20 16:25] LABS: ERYTHROCYTE SEDIMENTATION RATE 4 mm/hr (0-15)
[2023-01-20 16:35] LABS: ALBUMIN 4.1 G/DL (3.2-5.2); ALKALINE PHOSPHATASE 59 U/L (46-116); ALT/SGPT 24 U/L (7.0-40); AST/SGOT 14 U/L (<34); BILIRUBIN,TOTAL 0.5 MG/DL (0.3-1.2); BLOOD UREA NITROGEN 10 MG/DL (9-23); CALCIUM LEVEL 9.4 MG/DL (8.5-10.1); CARBON DIOXIDE LEVEL 26 MMOL/L (20-31); CHLORIDE LEVEL 104 MMOL/L (98-107); CREATININE FOR GFR 0.65 MG/DL (0.70-1.30); GLOMERULAR FILTRATION RATE > 60.0 (>60); GLUCOSE, FASTING 86 MG/DL (60-100); POTASSIUM SERUM 4.3 MMOL/L (3.5-5.1); RHEUMATOID FACTOR QUANT < 3.5 IU/ML (<14); SODIUM LEVEL 137 MMOL/L (136-145); TOTAL PROTEIN 7.3 G/DL (5.7-8.2)
[2023-01-20 16:38] LABS: FOLATE > 24.0 NG/ML (>5.4); HEMOGLOBIN A1c 4.8 % (4.0-6.0)
[2023-01-20 16:39] LABS: THYROID STIMULATING HORMONE 0.752 uIU/ML (0.55-4.78); VITAMIN B12 LEVEL 830 PG/ML (211-911)
[2023-01-25 19:07] LABS: ANTINUCLEAR ANTIBODIES DIRECT Negative (Negative); VITAMIN B1 LEVEL WHOLE BLOOD 168.4 nmol/L (66.5-200.0); VITAMIN B6,PYRIDOXAL PHOSPHATE 12.6 ug/L (3.4-65.2); VITAMIN E(ALPHA TOCOPHEROL) 10.8 mg/L (7.0-25.1); VITAMIN E(GAMMA TOCOPHEROL) 0.7 mg/L (0.5-5.5)
== END ==
LOC: M PLALAB 14:43
PROVIDERS: ATTEND Psychiatry & Neurology Neurology
DX: R41.9 Unspecified symptoms and signs involving cognitive functions and awareness (principal)

== ENCOUNTER → 2023-02-26 | Outpatient (CLI) | payer OTHER ==
[2023-02-26 17:07] LABS: HEMATOCRIT 50.3 % (42.0-52.0); HEMOGLOBIN 16.7 g/dl (13.5-17.5); MEAN CORPUSCULAR HEMOGLOBIN 30.9 pg (27.0-33.0); MEAN CORPUSCULAR HGB CONC 33.2 g/dl (32.0-36.5); PLATELET COUNT, AUTOMATED 171 10^3/uL (150-450); RED BLOOD COUNT 5.41 10^6/uL (4.30-6.10); WHITE BLOOD COUNT 8.7 10^3/uL (4.0-10.0)
[2023-02-26 17:35] LABS: ALBUMIN 3.7 G/DL (3.2-5.2); ALKALINE PHOSPHATASE 59 U/L (46-116); ALT/SGPT 235 U/L (7.0-40); AST/SGOT 173 U/L (<34); BILIRUBIN,DIRECT 0.1 MG/DL (<0.4); BILIRUBIN,TOTAL 0.3 MG/DL (0.3-1.2); BLOOD UREA NITROGEN 13 MG/DL (9-23); CALCIUM LEVEL 9.2 MG/DL (8.5-10.1); CARBON DIOXIDE LEVEL 31 MMOL/L (20-31); CHLORIDE LEVEL 102 MMOL/L (98-107); CREATININE FOR GFR 0.82 MG/DL (0.70-1.30); GLOMERULAR FILTRATION RATE > 60.0 (>60); GLUCOSE, FASTING 82 MG/DL (60-100); POTASSIUM SERUM 4.6 MMOL/L (3.5-5.1); SODIUM LEVEL 139 MMOL/L (136-145); TOTAL PROTEIN 7.1 G/DL (5.7-8.2)
== END ==
LOC: M PLALAB 15:53
PROVIDERS: ATTEND Student in an Organized Health Care Education/Training Program
DX: G35 Multiple sclerosis (principal)

== ENCOUNTER → 2023-06-28 | Outpatient (CLI) | payer OTHER ==
[2023-06-28 15:40] LABS: BASO # 0.1 10^3/uL (0.0-0.2); BASO % 0.8 % (0.0-1.0); EOS % 0.5 % (0.0-3.0); HEMATOCRIT 44.7 % (42.0-52.0); LYMPH % 26.9 % (24.0-44.0); MEAN CORPUSCULAR HEMOGLOBIN 30.4 pg (27.0-33.0); MEAN CORPUSCULAR HGB CONC 33.6 g/dl (32.0-36.5); MEAN CORPUSCULAR VOLUME 90.7 fl (80.0-96.0); MONO # 0.6 10^3/uL (0.0-0.8); MONO % 8.6 % (2.0-8.0); NEUTROPHILS # 4.6 10^3/uL (1.5-8.5); NEUTROPHILS % 62.9 % (36.0-66.0); PLATELET COUNT, AUTOMATED 192 10^3/uL (150-450); RED BLOOD COUNT 4.93 10^6/uL (4.30-6.10); WHITE BLOOD COUNT 7.3 10^3/uL (4.0-10.0)
[2023-06-28 16:11] LABS: ALBUMIN 3.9 G/DL (3.2-5.2); ALKALINE PHOSPHATASE 79 U/L (46-116); ALT/SGPT 35 U/L (7.0-40); AST/SGOT 50 U/L (<34); BILIRUBIN,DIRECT < 0.1 MG/DL (<0.4); BILIRUBIN,TOTAL 0.3 MG/DL (0.3-1.2); TOTAL PROTEIN 6.9 G/DL (5.7-8.2)
== END ==
LOC: M PLALAB 11:46
PROVIDERS: ATTEND Student in an Organized Health Care Education/Training Program
DX: G35 Multiple sclerosis (principal)

== ENCOUNTER 2023-11-19 19:32 | Emergency (ER) | payer OTHER, SELFPAY ==
[2023-11-19 19:48] VITALS: TEMP 98.2
[2023-11-19] MEDS ORDERED: LORazepam 2 MG/ML 1ML VIAL As Ordered ONE (19:54)
[2023-11-19] MEDS: NS 1,000 ML IV ONE (20:00)
[2023-11-19] MEDS ORDERED: MED REC IN PROGRESS XX SCH (20:10)
[2023-11-19 20:40] LABS: VENOUS BASE EXCESS -3.4 (-2.0-2.0); VENOUS HCO3 21.4 MMOL/L (23.0-27.0); VENOUS O2 SATURATION 64.4 % (60.0-80.0); VENOUS PARTIAL PRESSURE O2 32.9 mmHg (30.0-50.0); VENOUS PH 7.368 UNITS (7.330-7.430); VENOUS STANDARD HCO3 20.8 MMOL/L; VENOUS TOTAL CO2 22.5 MMOL/L (24.0-28.0)
[2023-11-19] MEDS: LORazepam 2 MG/ML 1ML VIAL IV PRN (20:40)
[2023-11-19 20:46] LABS: BASO % 0.2 % (0.0-1.0); HEMATOCRIT 46.8 % (42.0-52.0); HEMOGLOBIN 15.9 g/dl (13.5-17.5); LYMPH # 0.5 10^3/uL (1.5-5.0); LYMPH % 2.6 % (24.0-44.0); MEAN CORPUSCULAR HEMOGLOBIN 31.1 pg (27.0-33.0); MEAN CORPUSCULAR VOLUME 91.4 fl (80.0-96.0); MONO # 0.8 10^3/uL (0.0-0.8); MONO % 4.4 % (2.0-8.0); NEUTROPHILS # 16.9 10^3/uL (1.5-8.5); NEUTROPHILS % 92.4 % (36.0-66.0); PLATELET COUNT, AUTOMATED 282 10^3/uL (150-450); RED BLOOD COUNT 5.12 10^6/uL (4.30-6.10); WHITE BLOOD COUNT 18.3 10^3/uL (4.0-10.0)
[2023-11-19 20:48] LABS: IONIZED CALCIUM 4.6 MG/DL (4.5-5.3)
[2023-11-19 21:13] LABS: ALBUMIN 3.9 G/DL (3.2-5.2); ALKALINE PHOSPHATASE 55 U/L (46-116); ALT/SGPT 25 U/L (7.0-40); AST/SGOT 13 U/L (<34); BILIRUBIN,DIRECT 0.1 MG/DL (<0.4); BILIRUBIN,TOTAL 0.4 MG/DL (0.3-1.2); BLOOD UREA NITROGEN 12 MG/DL (9-23); CALCIUM LEVEL 9.8 MG/DL (8.5-10.1); CARBON DIOXIDE LEVEL 25 MMOL/L (20-31); CHLORIDE LEVEL 108 MMOL/L (98-107); CREATININE FOR GFR 0.81 MG/DL (0.70-1.30); GLOMERULAR FILTRATION RATE > 60.0 (>60); GLUCOSE, FASTING 129 MG/DL (60-100); MAGNESIUM LEVEL 1.9 MG/DL (1.8-2.4); PHOSPHORUS LEVEL 2.5 MG/DL (2.5-4.9); POTASSIUM SERUM 4.7 MMOL/L (3.5-5.1); SODIUM LEVEL 137 MMOL/L (136-145); TOTAL PROTEIN 7.4 G/DL (5.7-8.2)
[2023-11-19] MEDS ORDERED: HOME MED LIST COMPLETE! XX SCH (21:20)
[2023-11-19] MEDS ORDERED: ONDA-83 PO (21:20)
[2023-11-19] MEDS ORDERED: DIME240C PO (21:20)
[2023-11-19] MEDS ORDERED: LACO50TA2 PO (21:20)
[2023-11-19] MEDS ORDERED: FLUO-290 PO (21:20)
[2023-11-19] MEDS ORDERED: THERTAB52 PO (21:22)
[2023-11-19] MEDS ORDERED: PRED20TA PO (22:00)
[2023-11-19] MEDS: VALPROATE SOD INJ 1,000 MG in D5W 50 ML IV ONE (22:23)
[2023-11-19] MEDS: methylPREDNISolone 1,000 MG, VIAL MATE ADAPTER 1 EACH in NS 250 ML IV ONE (23:34)
[2023-11-20] MEDS: LACOSAMIDE 10MG/ML 20ML VIAL (VIMPAT) IV STA (00:38)
[2023-11-20 03:15] VITALS: O2SAT 97
[2023-11-20 03:16] VITALS: BP 102/63
== END 2023-11-20 03:47 | disposition home or self-care (01) ==
LOC: M ED 19:32
DX: G40.89 Other seizures (principal); G35 Multiple sclerosis; Z79.810 Long term (current) use of selective estrogen receptor modulators (SERMs); Z79.899 Other long term (current) drug therapy
CPT/HCPCS: 70450; 71045; 72125; 80048; 80076; 80164; 80235; 82140; 82330; 82803; 83605; 83735; 84100; 85025; 87486; 87581; 87633; 87798; 93041; 94760; 96365; 96366; 96374; 96375; 99285; C9254; J2060; J2919

== ENCOUNTER → 2024-02-14 | Outpatient (CLI) | payer OTHER ==
[~2024-02-14] MED LIST changes: +DIME240C PO; +FLUO-290 PO; +LACO50TA2 PO; +ONDA-83 PO; +PRED20TA PO; +THERTAB52 PO
[2024-02-14 15:41] LABS: BASO # 0.1 10^3/uL (0.0-0.2); BASO % 0.8 % (0.0-1.0); EOS % 0.6 % (0.0-3.0); HEMATOCRIT 44.3 % (42.0-52.0); HEMOGLOBIN 14.8 g/dl (13.5-17.5); LYMPH # 1.9 10^3/uL (1.5-5.0); LYMPH % 29.4 % (24.0-44.0); MEAN CORPUSCULAR HGB CONC 33.4 g/dl (32.0-36.5); MEAN CORPUSCULAR VOLUME 92.7 fl (80.0-96.0); MONO # 0.7 10^3/uL (0.0-0.8); MONO % 9.9 % (2.0-8.0); NEUTROPHILS # 3.9 10^3/uL (1.5-8.5); PLATELET COUNT, AUTOMATED 237 10^3/uL (150-450); RED BLOOD COUNT 4.78 10^6/uL (4.30-6.10); WHITE BLOOD COUNT 6.6 10^3/uL (4.0-10.0)
[2024-02-14 15:56] LABS: ALBUMIN 3.7 G/DL (3.2-5.2); ALKALINE PHOSPHATASE 63 U/L (40-129); ALT/SGPT 19 U/L (7.0-40); AST/SGOT 12 U/L (<34); BILIRUBIN,DIRECT < 0.1 MG/DL (<0.4); BILIRUBIN,TOTAL 0.3 MG/DL (0.3-1.2); TOTAL PROTEIN 6.9 G/DL (5.7-8.2)
== END ==
LOC: M PLALAB 11:56
PROVIDERS: ATTEND Student in an Organized Health Care Education/Training Program
DX: G35 Multiple sclerosis (principal)

== ENCOUNTER → 2024-12-25 | Outpatient (CLI) | payer OTHER ==
[~2024-12-25] MED LIST changes: +DIVA-41 PO; -DIVA500T94 PO; +LACO50TA12 PO; -LACO50TA2 PO
[2024-12-25 15:16] LABS: BASO # 0.1 10^3/uL (0.0-0.2); BASO % 0.8 % (0.0-1.0); EOS # 0.1 10^3/uL (0.0-0.5); EOS % 0.9 % (0.0-3.0); LYMPH # 2.1 10^3/uL (1.5-5.0); LYMPH % 22.1 % (24.0-44.0); MONO # 0.8 10^3/uL (0.0-0.8); MONO % 8.7 % (2.0-8.0); NEUTROPHILS # 6.3 10^3/uL (1.5-8.5); NEUTROPHILS % 67.2 % (36.0-66.0); PLATELET COUNT, AUTOMATED 251 10^3/uL (150-450)
[2024-12-25 15:42] LABS: VALPROIC ACID (DEPAKOTE) 75.2 UG/ML (50.0-100.0)
[2024-12-25 15:44] LABS: ALT/SGPT 22 U/L (7.0-40); AST/SGOT 14 U/L (<34); CALCIUM LEVEL 9.4 MG/DL (8.5-10.1); CARBON DIOXIDE LEVEL 24 MMOL/L (20-31); CHLORIDE LEVEL 110 MMOL/L (98-107); CREATININE FOR GFR 0.68 MG/DL (0.70-1.30); GLOMERULAR FILTRATION RATE > 90.0 (>60); POTASSIUM SERUM 4.4 MMOL/L (3.5-5.1); SODIUM LEVEL 141 MMOL/L (136-145)
== END ==
LOC: M PLALAB 13:33 → M LAB 13:33
PROVIDERS: ATTEND Psychiatry & Neurology Neurology
DX: R56.9 Unspecified convulsions (principal)

== ENCOUNTER → 2024-12-25 | Outpatient (CLI) | payer OTHER ==
[2024-12-25 15:14] LABS: BASO # 0.1 10^3/uL (0.0-0.2); BASO % 0.6 % (0.0-1.0); EOS # 0.1 10^3/uL (0.0-0.5); EOS % 0.7 % (0.0-3.0); LYMPH # 2.0 10^3/uL (1.5-5.0); LYMPH % 22.2 % (24.0-44.0); MONO # 0.9 10^3/uL (0.0-0.8); MONO % 9.5 % (2.0-8.0); NEUTROPHILS # 6.1 10^3/uL (1.5-8.5); NEUTROPHILS % 66.8 % (36.0-66.0); PLATELET COUNT, AUTOMATED 250 10^3/uL (150-450)
[2024-12-25 15:43] LABS: ALT/SGPT 23.0 U/L (7.0-40); AST/SGOT 14.0 U/L (<34)
== END ==
LOC: M PLALAB 13:37 → M LAB 14:21
DX: G35.D Multiple sclerosis, unspecified (principal)